=== PATIENT | female | born 1945 | race Caucasian/White ===

== ENCOUNTER → 2017-01-17 | Outpatient (CLI) | payer MEDICARE, OTHER ==
[~2017-01-17] MED LIST: ALLO100T PO; AMLO5TAB2 PO; ASPI81TA85 PO; CALC0.5C PO; CENTTAB PO; CHELATED IRON PO; GLUC2.5T9 PO; LASI20TA PO; PANT40TA2 PO; SIMV10TA2 PO; SITA50TAB PO; VITA500047 PO
[2017-01-17 13:37] LABS: ALBUMIN 3.4 GM/DL (3.2-5.2); ALBUMIN/GLOBULIN RATIO 1.03 (1.00-1.93); BILIRUBIN,TOTAL 0.4 MG/DL (0.2-1.0); CALCIUM LEVEL 8.6 MG/DL (8.8-10.2); CREATININE FOR GFR 2.11 MG/DL (0.55-1.02); GLOMERULAR FILTRATION RATE 24.6 (>39); POTASSIUM SERUM 4.2 MEQ/L (3.5-5.1); TOTAL PROTEIN 6.7 GM/DL (6.4-8.2)
[2017-01-17 13:43] LABS: BASO % 0.3 % (0.0-1.0); EOS # 0.2 K/mm3 (0.0-0.50); EOS % 3.1 % (0.0-3.0); LARGE UNSTAINED CELL # 0.1 K/mm3 (0.0-0.4); LYMPH # 1.5 K/mm3 (1.5-4.5); LYMPH % 19.5 % (24.0-44.0); MEAN CORPUSCULAR HEMOGLOBIN 31.9 pg (27.0-33.0); MEAN CORPUSCULAR HGB CONC 32.2 g/dl (32.0-36.5); MEAN CORPUSCULAR VOLUME 98.8 fl (80.0-96.0); MONO # 0.4 K/mm3 (0.0-0.8); MONO % 4.9 % (0.0-5.0); NEUTROPHILS # 5.4 K/mm3 (1.8-7.7); NEUTROPHILS % 71.3 % (36.0-66.0); PLATELET COUNT, AUTOMATED 319 k/mm3 (150-450); RED CELL DISTRIBUTION WIDTH 15.1 % (11.5-14.5); WHITE BLOOD COUNT 7.5 K/mm3 (4.0-10.0)
== END ==
LOC: M SMT 09:12
PROVIDERS: ATTEND Family Medicine
DX: N18.9 Chronic kidney disease, unspecified (principal); E11.9 Type 2 diabetes mellitus without complications; E53.8 Deficiency of other specified B group vitamins

== ENCOUNTER → 2017-03-15 | Day surgery (SDC) | payer MEDICARE, OTHER ==
[~2017-03-15] VITALS: Ht 160 cm; Wt 85.3 kg
[~2017-03-15] MED LIST changes: +ACETAMINOPHEN 325 MG TAB PO PRN; +ACETYLCHOLINE OPHTH SOLN 1% 2ML (MIOCHOL-E) As Ordered ONE; +ASPI1TAB PO; +AcetaZOLAMIDE 500 MG ER CAP PO ONE; +BALANCED SALT IRRIGATION SOLUTION 500ML BAG (FOR OR EYE MACHINE) As Ordered ONE; +CARV6.25 PO; +CEFUROXIME 1MG/0.1ML INTRACAMERAL INJ As Ordered ONE; +CYCLOPENTOLATE 2% OPHTH SOLN 2ML BTL OS ONE; +D5W/0.2% SODIUM CHLORIDE 250 ML IV ONE; +FURO20TA2 PO; +GLIP-163 PO; +GLIP2.5T6 PO; +HEALON DUET (HEALON 10MG/ML 0.55ML & HEALON ENDOCOAT 30MG/ML 0.85ML) As Ordered ONE; +IRON18TA PO; +IRON18TA2 PO; +KETOROLAC 0.5% OPHTH SOLN OS ONE; +LIDOCAINE 1% SDV 5 ML VIAL As Ordered ONE; +LIDOCAINE 4% INJ 5 ML AMP OU ONE; +LISI2.5T3 PO; +MIDAZOLAM INJ 2 MG/2 ML VIAL (J2250) As Ordered ONE; +MYRB50TA PO; +OFLOXACIN 0.3 % (OCUFLOX) OPTH SOL 5ML OS ONE; +PHENYLEPHRINE 2.5% OPHTH SOL 2ML OS ONE; +POTA10TA17 PO; +POVIDONE-IODINE 5% OPHTH PREP SOL 30ML As Ordered ONE; +PROPARACAINE 0.5% OPHTH SOL 15ML OS PRN; +ROCA0.5C PO; +TRIMETHOBENZAMIDE 300 MG CAP PO PRN; +TROPICAMIDE 1% OPHTH SOLN 2ML OS ONE; +VITA1CAP40 PO; +fentaNYL 100 MCG/2 ML INJECTION (J3010) As Ordered ONE
[2017-03-15 10:58] VITALS: BP 138/72
--- NOTE | 2017-03-16 11:40 | RO ---
DATE OF PROCEDURE: 03/15/2017 PREPROCEDURE DIAGNOSIS: Age related nuclear cataract left eye. POSTPROCEDURE DIAGNOSIS: Age related nuclear cataract left eye. PROCEDURE: Phacoemulsification and posterior chamber intraocular lens implantation left eye. The lens used was AU00T0, 17.5 diopter. SURGEON: Elmira Pena MD HYDROELECTRIC COMPONENT MACHINIST: ANESTHESIA: Topical with sedation. DESCRIPTION OF PROCEDURE: The patient was prepped and draped in the usual fashion. A lid speculum was placed between the lids. The eye was fixated. A stab incision was made to the anterior chamber, and 1% non-preserved lidocaine was instilled. Then, viscoelastic was instilled. The eye was re-fixated. A 2.75 mm sapphire keratome was used to make a clear corneal temporal limbal incision. Capsulorrhexis was begun with a 30-gauge bent needle and then carried out in a circular fashion with capsulorrhexis forceps. The lens was hydrodissected, and then the phacoemulsification unit was used to make a groove in the nucleus in two meridians. The nucleus was then cracked into four quadrants. Each quadrant was removed with the phacoemulsification unit. Any remaining cortex was removed with the irrigation and aspiration (I and A) unit. Capsular bag was refilled with viscoelastic. A posterior chamber intraocular lens was placed in the capsular bag without difficulty. Any remaining viscoelastic was removed with the I and A unit. The wound was hydrated, and Miochol and cefuroxime were instilled into the anterior chamber. The patient tolerated the procedure well and went to the recovery room in stable condition.
== END | disposition home or self-care (01) ==
LOC: M SDC 08:59
PROVIDERS: ATTEND Ophthalmology
DX: H25.12 Age-related nuclear cataract, left eye (principal); E11.22 Type 2 diabetes mellitus with diabetic chronic kidney disease; I12.9 Hypertensive chronic kidney disease with stage 1 through stage 4 chronic kidney disease, or unspecified chronic kidney disease; E78.5 Hyperlipidemia, unspecified; E50.9 Vitamin A deficiency, unspecified; I42.0 Dilated cardiomyopathy; I49.9 Cardiac arrhythmia, unspecified; M10.9 Gout, unspecified; E03.9 Hypothyroidism, unspecified; K57.32 Diverticulitis of large intestine without perforation or abscess without bleeding; R23.3 Spontaneous ecchymoses; M12.9 Arthropathy, unspecified; M54.5 Low back pain; R06.02 Shortness of breath; N18.4 Chronic kidney disease, stage 4 (severe); N39.3 Stress incontinence (female) (male); Z79.899 Other long term (current) drug therapy; Z79.82 Long term (current) use of aspirin; Z98.84 Bariatric surgery status; Z96.652 Presence of left artificial knee joint; Z96.661 Presence of right artificial ankle joint; Z98.51 Tubal ligation status; Z87.440 Personal history of urinary (tract) infections
CPT/HCPCS: 66984; J2250; J3010; V2632

== ENCOUNTER → 2017-05-19 | Outpatient (CLI) | payer MEDICARE, OTHER ==
[~2017-05-19] MED LIST changes: -ACETAMINOPHEN 325 MG TAB PO PRN; -ACETYLCHOLINE OPHTH SOLN 1% 2ML (MIOCHOL-E) As Ordered ONE; -AcetaZOLAMIDE 500 MG ER CAP PO ONE; -BALANCED SALT IRRIGATION SOLUTION 500ML BAG (FOR OR EYE MACHINE) As Ordered ONE; -CEFUROXIME 1MG/0.1ML INTRACAMERAL INJ As Ordered ONE; -CYCLOPENTOLATE 2% OPHTH SOLN 2ML BTL OS ONE; -D5W/0.2% SODIUM CHLORIDE 250 ML IV ONE; -HEALON DUET (HEALON 10MG/ML 0.55ML & HEALON ENDOCOAT 30MG/ML 0.85ML) As Ordered ONE; -KETOROLAC 0.5% OPHTH SOLN OS ONE; -LIDOCAINE 1% SDV 5 ML VIAL As Ordered ONE; -LIDOCAINE 4% INJ 5 ML AMP OU ONE; -MIDAZOLAM INJ 2 MG/2 ML VIAL (J2250) As Ordered ONE; -OFLOXACIN 0.3 % (OCUFLOX) OPTH SOL 5ML OS ONE; -PHENYLEPHRINE 2.5% OPHTH SOL 2ML OS ONE; -POVIDONE-IODINE 5% OPHTH PREP SOL 30ML As Ordered ONE; -PROPARACAINE 0.5% OPHTH SOL 15ML OS PRN; -TRIMETHOBENZAMIDE 300 MG CAP PO PRN; -TROPICAMIDE 1% OPHTH SOLN 2ML OS ONE; -fentaNYL 100 MCG/2 ML INJECTION (J3010) As Ordered ONE
[2017-05-19 13:47] LABS: MEAN CORPUSCULAR HEMOGLOBIN 31.3 pg (27.0-33.0); MEAN CORPUSCULAR HGB CONC 31.3 g/dl (32.0-36.5); MEAN CORPUSCULAR VOLUME 100.2 fl (80.0-96.0); RED CELL DISTRIBUTION WIDTH 15.5 % (11.5-14.5); WHITE BLOOD COUNT 7.4 K/mm3 (4.0-10.0)
[2017-05-19 13:58] LABS: CALCIUM LEVEL 8.2 MG/DL (8.8-10.2); CREATININE FOR GFR 2.47 MG/DL (0.55-1.02); GLOMERULAR FILTRATION RATE 20.4 (>39); POTASSIUM SERUM 4.6 MEQ/L (3.5-5.1)
[2017-05-19 13:59] LABS: ALBUMIN 3.4 GM/DL (3.2-5.2); ALBUMIN/GLOBULIN RATIO 1.1 (1.00-1.93); BILIRUBIN,TOTAL 0.5 MG/DL (0.2-1.0); TOTAL PROTEIN 6.5 GM/DL (6.4-8.2)
== END ==
LOC: M SMT 09:14
PROVIDERS: ATTEND Family Medicine
DX: E53.8 Deficiency of other specified B group vitamins (principal); E55.9 Vitamin D deficiency, unspecified; E11.9 Type 2 diabetes mellitus without complications; N39.0 Urinary tract infection, site not specified

== ENCOUNTER → 2017-05-25 | Outpatient (CLI) | payer MEDICARE, OTHER ==
--- NOTE | 2017-06-02 09:17 | DEXA ---
AP SPINE L1 - L4 1.027 -1.4 0.4 LT FEMUR TOTAL Replaced. RT FEMUR TOTAL 0.783 -1.8 -0.2 TOTAL BODY TOTAL OTHER DUAL FEMUR FRAX* ASSESSMENT Risk factors: Not performed. 10 year probability of fracture Major osteoporotic fracture % Hip fracture % COMMENTS: There is low bone density of the spine. There is low bone density of the right hip. The decreased density of the spine does represent a significant change. The decreased density of the right hip does represent a significant change. The density of the spine has decreased 6.0% since the initial exam on 12/2002. The spine density has decreased 7.5% since the most recent exam on 05/2013. The density of the right hip has decreased 20.9% since the initial exam on 2002. The density of the right hip has decreased 11.0% since the most recent exam on . FOLLOW-UP: Recommendation for the next bone density exam: 2 years. JOSSY
== END ==
LOC: M WHC 08:05
PROVIDERS: ATTEND Family Medicine
DX: Z12.31 Encounter for screening mammogram for malignant neoplasm of breast (principal); M85.9 Disorder of bone density and structure, unspecified; Z78.0 Asymptomatic menopausal state
CPT/HCPCS: 77080; G0202

== ENCOUNTER → 2017-05-25 | Outpatient (CLI) | payer MEDICARE, OTHER ==
--- NOTE | 2017-05-25 10:48 | REPMRS ---
Patient History The patient states she had a clinical breast exam in Patient is postmenopausal. Family history of breast cancer in daughter under age 50. Digital Woman Screen Mammo: May 25, 2017 - Exam #: [id number] Bilateral CC and MLO view(s) were taken. Technologist: Taylor Hung, Technologist Prior study comparison: May 23, 2016, digital woman screen mammo performed at [facility] to [facility]. May 19, 2015, digital woman screen mammo performed at [facility] to [facility]. FINDINGS: There are scattered fibroglandular densities. There has been no change in the appearance of the mammogram from the prior studies. There is a mild amount of residual fibroglandular tissue which is fairly symmetric. There is no interval development of dominant mass, architectural distortion, or clustered microcalcification suggestive of malignancy. ASSESSMENT: BI-RADS/ACR category 1 mammogram. Negative. Recommendation Routine screening mammogram in 1 year (for women over age 40). This mammogram was interpreted with the aid of an FDA-approved computer-aided dectection system. Electronically Signed By: Asa Cartwright MD 05/25/17 [id number]
== END ==
LOC: M WHC 08:01
PROVIDERS: ATTEND Nurse Practitioner Family
DX: Z12.31 Encounter for screening mammogram for malignant neoplasm of breast (principal); Z78.0 Asymptomatic menopausal state

== ENCOUNTER → 2017-06-01 | Outpatient (REF) | payer MEDICARE, OTHER ==
[2017-06-02 14:02] LABS: PERCENT SATURATION 22.3 % (13.2-45.0)
== END ==
LOC: M LAB REF 13:34
PROVIDERS: ATTEND Internal Medicine Nephrology
DX: N39.0 Urinary tract infection, site not specified (principal); N18.4 Chronic kidney disease, stage 4 (severe); D63.1 Anemia in chronic kidney disease; E11.22 Type 2 diabetes mellitus with diabetic chronic kidney disease

== ENCOUNTER → 2018-01-11 | Outpatient (CLI) | payer MEDICARE, OTHER ==
[2018-01-11 11:00] LABS: BASO % 0.3 % (0.0-1.0); EOS # 0.1 10^3/uL (0.0-0.50); EOS % 0.8 % (0.0-3.0); HEMATOCRIT 29.6 % (36.0-47.0); HEMOGLOBIN 9.7 g/dl (12.0-15.5); IMMATURE GRANULOCYTE % 0.7 % (0-3.0); LYMPH # 1.4 10^3/uL (1.5-4.5); LYMPH % 15.7 % (24.0-44.0); MEAN CORPUSCULAR HEMOGLOBIN 32.2 pg (27.0-33.0); MEAN CORPUSCULAR HGB CONC 32.8 g/dl (32.0-36.5); MEAN CORPUSCULAR VOLUME 98.3 fl (80.0-96.0); MONO # 0.6 10^3/uL (0.0-0.8); MONO % 6.6 % (0.0-5.0); NEUTROPHILS # 6.8 10^3/uL (1.8-7.7); NEUTROPHILS % 75.9 % (36.0-66.0); PLATELET COUNT, AUTOMATED 315 10^3/uL (150-450); RED BLOOD COUNT 3.01 10^6/uL (4.00-5.40); RED CELL DISTRIBUTION WIDTH 14.7 % (11.5-14.5)
[2018-01-11 11:04] LABS: APPEARANCE, URINE TURBID (CLEAR); BACTERIA, URINE AUTO 2+ (NEGATIVE); BILIRUBIN, URINE AUTO NEGATIVE (NEGATIVE); BLOOD, URINE BLOOD NEGATIVE (NEGATIVE); COLOR, URINE YELLOW (YELLOW); GLUCOSE, URINE (UA) AUTO NEGATIVE (NEGATIVE); KETONE, URINE AUTO NEGATIVE (NEGATIVE); LEUKOCYTE ESTERASE, URINE AUTO 3+ (NEGATIVE); NITRITE, URINE AUTO NEGATIVE (NEGATIVE); PROTEIN, URINE AUTO 1+ mg/dL (NEGATIVE); RBC, URINE AUTO 14 /HPF (0-3); SPECIFIC GRAVITY URINE AUTO 1.014 (1.002-1.035); SQUAMOUS EPITHELIAL CELL UR AU 8 /HPF (0-6); UROBILINOGEN, URINE AUTO 0.2 mg/dL (0.0-2.0); WBC, URINE AUTO TNTC /HPF (0-3)
[2018-01-11 11:27] LABS: ALBUMIN 3.4 GM/DL (3.2-5.2); ALKALINE PHOSPHATASE 101 U/L (45-117); ALT/SGPT 30 U/L (12-78); ANION GAP 9 MEQ/L (8-16); AST/SGOT 28 U/L (7-37); BILIRUBIN,TOTAL 0.4 MG/DL (0.2-1.0); BLOOD UREA NITROGEN 51 MG/DL (7-18); CALCIUM LEVEL 8.6 MG/DL (8.8-10.2); CARBON DIOXIDE LEVEL 21 MEQ/L (21-32); CHLORIDE LEVEL 116 MEQ/L (98-107); CREATININE FOR GFR 3.08 MG/DL (0.55-1.30); GLOMERULAR FILTRATION RATE 15.8 (>39); GLUCOSE, FASTING 118 MG/DL (70-100); POTASSIUM SERUM 4.2 MEQ/L (3.5-5.1); SODIUM LEVEL 146 MEQ/L (136-145); TOTAL PROTEIN 6.8 GM/DL (6.4-8.2)
[2018-01-11 11:33] LABS: TOTAL 25(OH) VITAMIN D 41.8 NG/ML (30.0-100.0); VITAMIN B12 LEVEL 1118 PG/ML (247-911)
[2018-01-11 12:17] LABS: ESTIMATED AVERAGE GLUCOSE 171 MG/DL (60-110); HEMOGLOBIN A1c 7.6 %
== END ==
LOC: M SMT 09:00
DX: E55.9 Vitamin D deficiency, unspecified (principal); E11.9 Type 2 diabetes mellitus without complications; E53.8 Deficiency of other specified B group vitamins
CPT/HCPCS: 82607

== ENCOUNTER → 2018-02-12 | Day surgery (SDC) | payer MEDICARE, OTHER ==
[~2018-02-12] MED LIST changes: -ALLO100T PO; -AMLO5TAB2 PO; -ASPI1TAB PO; -ASPI81TA85 PO; -CALC0.5C PO; -CARV6.25 PO; -CENTTAB PO; -CHELATED IRON PO; -FURO20TA2 PO; -GLIP-163 PO; -GLIP2.5T6 PO; -GLUC2.5T9 PO; -IRON18TA PO; -IRON18TA2 PO; -LASI20TA PO; -LISI2.5T3 PO; -MYRB50TA PO; -PANT40TA2 PO; -POTA10TA17 PO; +PROPOFOL 200 MG/20 ML VIAL As Ordered; -ROCA0.5C PO; -SIMV10TA2 PO; -SITA50TAB PO; -VITA1CAP40 PO; -VITA500047 PO
[2018-02-12] MEDS: NS 1,000 ML IV (09:00)
== END | disposition home or self-care (01) ==
LOC: M OPP 08:48
DX: Z12.11 Encounter for screening for malignant neoplasm of colon (principal); K64.0 First degree hemorrhoids; K57.30 Diverticulosis of large intestine without perforation or abscess without bleeding; Z86.010 Personal history of colon polyps; I10 Essential (primary) hypertension; E11.9 Type 2 diabetes mellitus without complications; E78.00 Pure hypercholesterolemia, unspecified; E03.9 Hypothyroidism, unspecified; M12.9 Arthropathy, unspecified; M54.5 Low back pain; N18.4 Chronic kidney disease, stage 4 (severe); R23.3 Spontaneous ecchymoses; N39.3 Stress incontinence (female) (male); M81.0 Age-related osteoporosis without current pathological fracture; Z79.82 Long term (current) use of aspirin; Z79.84 Long term (current) use of oral hypoglycemic drugs; Z79.891 Long term (current) use of opiate analgesic; Z79.899 Other long term (current) drug therapy; Z98.84 Bariatric surgery status; Z86.718 Personal history of other venous thrombosis and embolism; Z96.641 Presence of right artificial hip joint; Z96.651 Presence of right artificial knee joint; Z83.3 Family history of diabetes mellitus
CPT/HCPCS: G0105

== ENCOUNTER → 2018-02-23 | Outpatient (REF) | payer MEDICARE, OTHER ==
[2018-02-23 14:20] LABS: CHOLESTEROL LEVEL 152 MG/DL (<200); FERRITIN 35 NG/ML (8-252); HDL CHOLESTEROL 50 MG/DL (>40); IRON (FE) 77 UG/DL (50-170); LDL CHOLESTEROL 78.8 MG/DL (<100); NON-HDL-C 102 MG/DL; PERCENT SATURATION 22.3 % (13.2-45.0); TOTAL IRON BINDING CAPACITY 345 UG/DL (250-450); TRIGLYCERIDES LEVEL 116 MG/DL (<150)
[2018-02-23 14:25] LABS: HEPATITIS B SURFACE ANTIBODY NEGATIVE (POSITIVE)
[2018-02-23 14:35] LABS: HEPATITIS B SURFACE ANTIGEN NEGATIVE (NEGATIVE)
[2018-02-23 15:02] LABS: HEPATITIS C VIRUS ABY INDEX 0.1 INDEX (<0.8)
[2018-02-23 15:03] LABS: HEPATITIS B CORE ANTIBODY IGM NEGATIVE (NEGATIVE)
== END ==
LOC: M LAB REF 13:04
DX: R30.0 Dysuria (principal); N18.4 Chronic kidney disease, stage 4 (severe); D63.1 Anemia in chronic kidney disease; E11.22 Type 2 diabetes mellitus with diabetic chronic kidney disease
CPT/HCPCS: 83550

== ENCOUNTER → 2018-03-13 | Outpatient (CLI) | payer MEDICARE, OTHER | LOC: M RAD 07:14 | DX: Z01.818 Encounter for other preprocedural examination (principal); N18.6 End stage renal disease | CPT/HCPCS: G0365 ==

== ENCOUNTER 2018-03-15 10:52 | Day surgery (SDC) | payer MEDICARE, OTHER ==
[~2018-03-15 10:52] MED LIST changes: +GLYCOPYRROLATE INJ 0.2 MG/ML 2 ML VIAL As Ordered; +KETOROLAC 60 MG/2 ML VIAL (J1885) As Ordered; +LIDOCAINE 2% INJ 100 MG/5 ML SDV (FOR ANES.) As Ordered; +MIDAZOLAM INJ 2 MG/2 ML VIAL (J2250) As Ordered; +NEOSTIGMINE 10 MG/10 ML VIAL (J2710) As Ordered; +ONDANSETRON 4MG/2ML VIAL (J2405) As Ordered; +ROCURONIUM BROMIDE 50 MG/5 ML VIAL As Ordered; +dexameTHASONE 4 MG/ML 1ML VIAL (J1100) As Ordered; +fentaNYL 100 MCG/2 ML INJECTION (J3010) As Ordered
[2018-03-15 11:58] LABS: BEDSIDE GLUCOSE 108 MG/DL (83-110)
[2018-03-15] MEDS: D5W/0.2% SODIUM CHLORIDE 1,000 ML IV (12:07)
[2018-03-15 12:41] LABS: POTASSIUM SERUM 4.7 MEQ/L (3.5-5.1)
[2018-03-15] MEDS: ceFAZolin 2 GM/D5W 50 ML IV BAG (J0690 PER 500MG) As Ordered (13:18)
[2018-03-15] MEDS: HEPARIN SOD (PORCINE) 5000 UNITS/ML VIAL As Ordered (13:24)
[2018-03-15] MEDS: BUPIVACAINE HCL 0.5% 30 ML VIAL As Ordered (13:25)
[2018-03-15] MEDS: LIDOCAINE 1% SDV INJ 30 ML VIAL As Ordered (13:25)
[2018-03-15] MEDS ORDERED: GLYCOPYRROLATE INJ 0.2 MG/ML 2 ML VIAL As Ordered (13:49)
[2018-03-15] MEDS ORDERED: ROCURONIUM BROMIDE 50 MG/5 ML VIAL As Ordered (14:02)
[2018-03-15] MEDS: ISOVUE-300 61% 50ML VIAL (Q9967) As Ordered (14:48)
[2018-03-15] MEDS: THROMBIN SOLN 20,000 UNITS KIT As Ordered (14:49)
[2018-03-15] MEDS ORDERED: SUGAMMADEX SODIUM 500 MG/5 ML VIAL (BRIDION) As Ordered (15:00)
[2018-03-15] MEDS ORDERED: LR 1,000 ML IV (15:30)
[2018-03-15] MEDS ORDERED: D5W/0.2% SODIUM CHLORIDE 1,000 ML IV (15:30)
[2018-03-15] MEDS ORDERED: PERCOCET 5MG/325MG TAB PO (15:30)
[2018-03-15] MEDS ORDERED: ONDANSETRON 4MG/2ML VIAL (J2405) IV (15:30)
[2018-03-15] MEDS ORDERED: fentaNYL 100 MCG/2 ML INJECTION (J3010) IV (15:30)
== END 2018-03-15 17:43 | disposition home or self-care (01) ==
LOC: M SDC 10:52
DX: N18.9 Chronic kidney disease, unspecified (principal); E11.9 Type 2 diabetes mellitus without complications; I12.9 Hypertensive chronic kidney disease with stage 1 through stage 4 chronic kidney disease, or unspecified chronic kidney disease; E03.9 Hypothyroidism, unspecified; M10.9 Gout, unspecified; E78.5 Hyperlipidemia, unspecified; Z79.82 Long term (current) use of aspirin; Z79.899 Other long term (current) drug therapy
CPT/HCPCS: 36821

== ENCOUNTER → 2018-03-26 | Outpatient (REF) | payer MEDICARE, OTHER | LOC: M LAB REF 17:12 | DX: N39.0 Urinary tract infection, site not specified (principal) | CPT/HCPCS: 87086 ==

== ENCOUNTER → 2018-04-24 | Outpatient (REF) | payer MEDICARE, OTHER | LOC: M LAB REF 17:42 | DX: N39.0 Urinary tract infection, site not specified (principal) | CPT/HCPCS: 87186 ==

== ENCOUNTER → 2018-05-08 | Outpatient (CLI) | payer MEDICARE, OTHER | LOC: M LAB 16:44 | DX: Z01.818 Encounter for other preprocedural examination (principal) | CPT/HCPCS: 36415 ==

== ENCOUNTER → 2018-05-14 | Outpatient (CLI) | payer MEDICARE, OTHER | LOC: M WHC 07:53 | DX: Z12.31 Encounter for screening mammogram for malignant neoplasm of breast (principal) | CPT/HCPCS: 77067 ==

== ENCOUNTER → 2018-05-25 | Outpatient (CLI) | payer MEDICARE, OTHER ==
[2018-05-28 12:56] LABS: HEPATITIS B CORE ANTIBODY IGM NEGATIVE (NEGATIVE); HEPATITIS B SURFACE ANTIBODY NEGATIVE (POSITIVE); HEPATITIS B SURFACE ANTIGEN NEGATIVE (NEGATIVE); HEPATITIS C VIRUS ABY INDEX 0.1 INDEX (<0.8)
== END ==
LOC: M SMT 13:16
DX: N18.4 Chronic kidney disease, stage 4 (severe) (principal)
CPT/HCPCS: 86706

== ENCOUNTER → 2019-01-14 | Outpatient (REF) | payer MEDICARE, OTHER ==
[~2019-01-14] MED LIST changes: +ALLO100T PO; +AMLO5TAB2 PO; +ASPI81TA26 PO; +ASPI81TA85 PO; +CALC0.5C14 PO; +CARV6.25 PO; +CENTTAB PO; +CHELATED IRON PO; +FURO20TA2 PO; +GLIP-163 PO; +GLIP2.5T6 PO; +GLUC2.5T9 PO; -GLYCOPYRROLATE INJ 0.2 MG/ML 2 ML VIAL As Ordered; +IRON18TA PO; +IRON18TA2 PO; -KETOROLAC 60 MG/2 ML VIAL (J1885) As Ordered; +LASI20TA PO; -LIDOCAINE 2% INJ 100 MG/5 ML SDV (FOR ANES.) As Ordered; +LISI-1046 PO; -MIDAZOLAM INJ 2 MG/2 ML VIAL (J2250) As Ordered; +MYRB50TA PO; -NEOSTIGMINE 10 MG/10 ML VIAL (J2710) As Ordered; -ONDANSETRON 4MG/2ML VIAL (J2405) As Ordered; +PANT40TA2 PO; +POTA10TA17 PO; -PROPOFOL 200 MG/20 ML VIAL As Ordered; +ROCA0.5C PO; -ROCURONIUM BROMIDE 50 MG/5 ML VIAL As Ordered; +SIMV10TA2 PO; +SITA50TAB PO; +SODI325T9 PO; +VITA500047 PO; +VITA50005 PO; -dexameTHASONE 4 MG/ML 1ML VIAL (J1100) As Ordered; -fentaNYL 100 MCG/2 ML INJECTION (J3010) As Ordered
== END ==
LOC: M LAB REF 17:22
PROVIDERS: ATTEND Internal Medicine Nephrology
DX: N39.0 Urinary tract infection, site not specified (principal); D63.1 Anemia in chronic kidney disease; T85.71XA Infection and inflammatory reaction due to peritoneal dialysis catheter, initial encounter

== ENCOUNTER → 2019-01-14 | Outpatient (CLI) | payer MEDICARE, OTHER ==
[2019-01-14 14:21] LABS: BASO % 0.4 % (0.0-1.0); EOS # 0.2 10^3/uL (0.0-0.50); HEMATOCRIT 30.8 % (36.0-47.0); HEMOGLOBIN 9.9 g/dl (12.0-15.5); LYMPH # 1.5 10^3/uL (1.5-4.5); LYMPH % 18.7 % (24.0-44.0); MEAN CORPUSCULAR HGB CONC 32.1 g/dl (32.0-36.5); MEAN CORPUSCULAR VOLUME 99.7 fl (80.0-96.0); MONO # 0.6 10^3/uL (0.0-0.8); NEUTROPHILS # 5.9 10^3/uL (1.8-7.7); NEUTROPHILS % 71.4 % (36.0-66.0); PLATELET COUNT, AUTOMATED 285 10^3/uL (150-450); RED BLOOD COUNT 3.09 10^6/uL (4.00-5.40); WHITE BLOOD COUNT 8.2 10^3/uL (4.0-10.0)
[2019-01-14 14:36] LABS: ALBUMIN 3.8 GM/DL (3.2-5.2); BILIRUBIN,TOTAL 0.5 MG/DL (0.2-1.0); CALCIUM LEVEL 8.8 MG/DL (8.8-10.2); CHOLESTEROL RISK RATIO 2.677 (<5); CREATININE FOR GFR 2.65 MG/DL (0.55-1.30); GLOMERULAR FILTRATION RATE 18.8 (>39); POTASSIUM SERUM 4.6 MEQ/L (3.5-5.1); TOTAL 25(OH) VITAMIN D 55.1 NG/ML (30.0-100.0); TOTAL PROTEIN 6.8 GM/DL (6.4-8.2)
== END ==
LOC: M SMT 09:48
PROVIDERS: ATTEND Family Medicine
DX: E55.9 Vitamin D deficiency, unspecified (principal); E11.9 Type 2 diabetes mellitus without complications; E53.8 Deficiency of other specified B group vitamins; N39.0 Urinary tract infection, site not specified; T85.71XA Infection and inflammatory reaction due to peritoneal dialysis catheter, initial encounter

== ENCOUNTER → 2019-03-19 | Outpatient (REF) | payer MEDICARE, OTHER | LOC: M LAB REF 12:49 | PROVIDERS: ATTEND Internal Medicine Nephrology | DX: N39.0 Urinary tract infection, site not specified (principal) ==

== ENCOUNTER → 2019-04-08 | Outpatient (REF) | payer MEDICARE, OTHER ==
[~2019-04-08] MED LIST changes: +CENT1TAB9 PO
[2019-04-08 18:46] LABS: APPEARANCE, URINE TURBID (CLEAR); BACTERIA, URINE AUTO 3+ (NEGATIVE); BILIRUBIN, URINE AUTO NEGATIVE (NEGATIVE); BLOOD, URINE BLOOD 1+ (NEGATIVE); COLOR, URINE AMBER (YELLOW); GLUCOSE, URINE (UA) AUTO NEGATIVE (NEGATIVE); KETONE, URINE AUTO NEGATIVE (NEGATIVE); LEUKOCYTE ESTERASE, URINE AUTO 3+ (NEGATIVE); MUCUS, URINE SMALL (NEGATIVE); NITRITE, URINE AUTO NEGATIVE (NEGATIVE); PROTEIN, URINE AUTO 1+ mg/dL (NEGATIVE); RBC, URINE AUTO 31 /HPF (0-3); SPECIFIC GRAVITY URINE AUTO 1.015 (1.002-1.035); SQUAMOUS EPITHELIAL CELL UR AU 1 /HPF (0-6); UROBILINOGEN, URINE AUTO 0.2 mg/dL (0.0-2.0); WBC, URINE AUTO TNTC /HPF (0-3)
== END ==
LOC: M LAB REF 16:53
PROVIDERS: ATTEND Family Medicine
DX: N39.0 Urinary tract infection, site not specified (principal)

== ENCOUNTER 2019-04-18 05:52 | Day surgery (SDC) | payer MEDICARE, OTHER ==
[~2019-04-18] VITALS: Ht 160 cm; Wt 74.8 kg
[2019-04-18] MEDS ORDERED: NS 1,000 ML IV ONE (06:00)
[2019-04-18] MEDS ORDERED: LIDOCAINE 1% SDV INJ 30 ML VIAL As Ordered ONE (06:47)
[2019-04-18] MEDS ORDERED: BUPIVACAINE HCL 0.5% 30 ML VIAL As Ordered ONE (06:48)
[2019-04-18] MEDS ORDERED: LIDOCAINE 2% INJ 100 MG/5 ML SDV (FOR ANES.) As Ordered ONE (07:07)
[2019-04-18] MEDS ORDERED: PROPOFOL 200 MG/20 ML VIAL As Ordered ONE (07:07)
[2019-04-18] MEDS ORDERED: ONDANSETRON 4MG/2ML VIAL (J2405) As Ordered ONE (07:09)
[2019-04-18] MEDS ORDERED: fentaNYL 100 MCG/2 ML INJECTION (J3010) As Ordered ONE (07:10)
[2019-04-18] MEDS ORDERED: MIDAZOLAM INJ 2 MG/2 ML VIAL (J2250) As Ordered ONE (07:10)
[2019-04-18] MEDS ORDERED: BACITRACIN OINT 30GM As Ordered ONE (07:31)
[2019-04-18 08:00] VITALS: BP 134/60
--- NOTE | 2019-04-18 11:35 | ROOPDOC ---
[facility] Report Of Operation Report of Operation DATE OF PROCEDURE: 04/18/2019 PREOPERATIVE DIAGNOSES: Chronic renal insufficiency nearing end-stage renal disease not yet requiring renal replacement therapy. POSTOPERATIVE DIAGNOSES: And it renal insufficiency nearing end-stage renal disease not yet requiring renal replacement therapy. PROCEDURE: Peritoneal dialysis catheter removal SURGEON: Dr. Satya Adams MD STATION JAILER: None INDICATION: Patient is a 74-year-old female who underwent placement of a peritoneal dialysis catheter laparoscopically and creation of a left brachiocephalic arteriovenous fistula in preparation for renal replacement therapy via peritoneal dialysis. The patient's renal function stabilized and the patient never required renal replacement therapy and has never used the peritoneal dialysis catheter. Patient will undergo removal of the peritoneal dialysis catheter. The procedure was described and explained to the patient in detail including drawing of pictures demonstrating the procedure and the anatomy. Risks, benefits and alternative treatment options were discussed with the patient. Benefits included but were not limited to removal of the catheter. Alternative treatment options included but were not limited to no intervention. Risks included but were not limited to infection, bleeding, intra- abdominal organ injury necessitating exploratory laparotomy with repair, possible need for further open surgical intervention, possible need for transfusion of blood products, nerve injury, pain, bruising, scarring, allergic and/or adverse reaction to the prepping and draping materials, allergic and/or adverse reaction to the anesthetic medications, anesthetic complication, cerebrovascular accident, myocardial infarction, pulmonary embolus, deep venous thrombosis, loss of limb, loss of life, poor results and poor outcome. Risks of not performing the procedure included but were not limited to infection, mechanical complication and or . All the patient's questions were answered. Patient signed consent in the preoperative holding area and verbally acknowledges giving consent to proceed with the removal of the peroneal dialysis catheter acknowledging understanding of the risks benefits and alternative treatment options. There were no guarantees or promises made to the patient regarding the outcome or results of the procedure. ANESTHESIA: Mac IVF: 200 mL's ESTIMATED BLOOD LOSS: 5 mL. HEPARIN:None PROTIMINE:None COMPLICATIONS: None. DRAINS:None SPECIMENS:None IMPLANTS: None DESCRIPTION OF PROCEDURE: Patient was taken to operating room, placed supine on the operating room table and the patient was prepped and draped in a standard surgical fashion. The surgical timeout was performed by myself and all members in the room confirming the correct patient, laterality and procedure. The peritoneal dialysis catheter was then removed with dissection of the subcutaneous cuff and peritoneal cuff performed sharply through the entry site in the abdominal wall. The catheter was ruled out without difficulty and was fully intact upon removal. Bacitracin and 2 x 2 dressings were applied to the exit site wound. All instrument, sponge and needle counts were correct at the end of the case. There were no complications. Dr. Adams was present for and directed the entire case. Patient was transferred to the recovery room awake, alert, extubated and in stable condition. The procedure and the results were described and explained to the patient in detail in the postprocedure recovery area with all of her questions being answered. CONCLUSION: Patient underwent successful removal of her peritoneal dialysis catheter. PLAN: Patient will follow-up in the office postoperatively. Amandeep Adams MD Apr 18, 2019 11:35
== END 2019-04-18 08:12 | disposition home or self-care (01) ==
LOC: M SDC 05:52
PROVIDERS: ATTEND Surgery Vascular Surgery
DX: Z49.02 Encounter for fitting and adjustment of peritoneal dialysis catheter (principal); N18.9 Chronic kidney disease, unspecified; I12.9 Hypertensive chronic kidney disease with stage 1 through stage 4 chronic kidney disease, or unspecified chronic kidney disease; E11.22 Type 2 diabetes mellitus with diabetic chronic kidney disease; I95.1 Orthostatic hypotension; E78.00 Pure hypercholesterolemia, unspecified; D64.9 Anemia, unspecified; R23.3 Spontaneous ecchymoses; M15.0 Primary generalized (osteo)arthritis; M54.5 Low back pain; M81.0 Age-related osteoporosis without current pathological fracture; R06.83 Snoring; Z79.899 Other long term (current) drug therapy; Z79.82 Long term (current) use of aspirin; Z79.84 Long term (current) use of oral hypoglycemic drugs; Z78.0 Asymptomatic menopausal state; Z98.84 Bariatric surgery status; Z96.1 Presence of intraocular lens; Z98.41 Cataract extraction status, right eye; Z98.42 Cataract extraction status, left eye; Z86.718 Personal history of other venous thrombosis and embolism; Z87.440 Personal history of urinary (tract) infections; Z96.642 Presence of left artificial hip joint; Z96.651 Presence of right artificial knee joint; Z98.51 Tubal ligation status

== ENCOUNTER → 2019-06-03 | Outpatient (REF) | payer MEDICARE, OTHER ==
[~2019-06-03] MED LIST changes: +SIMV10TA21 PO
== END ==
LOC: M LAB REF 17:04
PROVIDERS: ATTEND Internal Medicine Nephrology
DX: N39.0 Urinary tract infection, site not specified (principal)

== ENCOUNTER → 2019-06-04 | Outpatient (CLI) | payer MEDICARE, OTHER ==
[~2019-06-04] MED LIST changes: -SIMV10TA21 PO
--- NOTE | 2019-06-04 11:23 | REPMRS ---
Patient History The patient states she had a clinical breast exam in 06/2019. Patient is postmenopausal. Family history of breast cancer at age 49 in daughter. No Hormone Replacement Therapy 3D TOMOSYNTHESIS WAS PERFORMED. [facility] for breast cancer [facility] 5.9%. Digital Woman Screen Mammo: June 04, 2019 - Exam #: [id number] Bilateral CC and MLO view(s) were taken. Technologist: Mary Lou Ford, Technologist Prior study comparison: May 14, 2018, bilateral digital woman screen mammo performed at [facility] [employer] to [facility]. May 25, 2017, digital woman screen mammo performed at [facility] [employer] to [employer] [facility]. FINDINGS: There are scattered fibroglandular densities. There has been no change in the appearance of the mammogram from the prior studies. There is a mild amount of residual fibroglandular tissue which is fairly symmetric. There is no interval development of dominant mass, architectural distortion, or clustered microcalcification suggestive of malignancy. Assessment: BI-RADS/ACR category 1 mammogram. Negative Mammogram. Recommendation Routine screening mammogram in 1 year (for women over age 40). This mammogram was interpreted with the aid of an FDA-approved computer-aided dectection system. Electronically Signed By: Asa Cartwright MD 06/04/19 [id number]
== END ==
LOC: M WHC 09:54
PROVIDERS: ATTEND Family Medicine
DX: Z12.31 Encounter for screening mammogram for malignant neoplasm of breast (principal); Z78.0 Asymptomatic menopausal state; Z80.3 Family history of malignant neoplasm of breast

== ENCOUNTER → 2020-01-13 | Outpatient (REF) | payer MEDICARE, OTHER ==
[~2020-01-13] MED LIST changes: -LISI-1046 PO; +LISI2.5T2 PO; +SIMV10TA21 PO
== END ==
LOC: M LAB REF 16:41
PROVIDERS: ATTEND Internal Medicine Nephrology
DX: N39.0 Urinary tract infection, site not specified (principal)

== ENCOUNTER → 2020-02-07 | Outpatient (CLI) | payer MEDICARE, OTHER ==
[~2020-02-07] MED LIST changes: +ELIQ5TAB PO; +iron PO
[2020-02-07 10:57] LABS: HEMATOCRIT 25.3 % (36.0-47.0); MEAN CORPUSCULAR HEMOGLOBIN 30.4 pg (27.0-33.0); MEAN CORPUSCULAR HGB CONC 31.6 g/dl (32.0-36.5); MEAN CORPUSCULAR VOLUME 96.2 fl (80.0-96.0); PLATELET COUNT, AUTOMATED 308 10^3/uL (150-450); RED BLOOD COUNT 2.63 10^6/uL (4.00-5.40); WHITE BLOOD COUNT 6.6 10^3/uL (4.0-10.0)
[2020-02-07 11:40] LABS: BILIRUBIN,TOTAL 0.4 MG/DL (0.2-1.0); CALCIUM LEVEL 8.3 MG/DL (8.8-10.2); CREATININE FOR GFR 3.24 MG/DL (0.55-1.30); GLOMERULAR FILTRATION RATE 14.9 (>39); POTASSIUM SERUM 4.3 MEQ/L (3.5-5.1); TOTAL PROTEIN 6.7 GM/DL (6.4-8.2)
== END ==
LOC: M LAB 10:33
PROVIDERS: ATTEND Family Medicine
DX: Z01.818 Encounter for other preprocedural examination (principal)

== ENCOUNTER → 2020-02-17 | Outpatient (REF) | payer MEDICARE, OTHER ==
[2020-02-17 19:11] LABS: PERCENT SATURATION 21.8 % (13.2-45.0)
== END ==
LOC: M LAB REF 16:51
PROVIDERS: ATTEND Internal Medicine Nephrology
DX: D50.9 Iron deficiency anemia, unspecified (principal); N39.0 Urinary tract infection, site not specified

== ENCOUNTER 2020-02-19 13:20 | Outpatient (CLI) | payer MEDICARE, OTHER ==
[~2020-02-19] VITALS: Ht 160 cm; Wt 70.9 kg
[2020-02-19 13:30] VITALS: BP 120/58
[2020-02-19] MEDS ORDERED: NS 1,000 ML IV SCH (13:30)
[2020-02-19] MEDS ORDERED: methylPREDNISolone 125MG 2ML VIAL IV PRN (13:30)
[2020-02-19] MEDS ORDERED: FERRIC CARBOXYMALTOSE INJ 750 MG in NS 250 ML IV ONE (13:30)
[2020-02-19] MEDS ORDERED: diphenhydrAMINE 50MG/ML VIAL (J1200) IV PRN (13:30)
[2020-02-19] MEDS ORDERED: EPINEPHrine INJ 1 MG/ML 1ML AMP IM PRN (13:30)
[2020-02-19] MEDS ORDERED: ALBUTEROL SULFATE 2.5 MG/0.5 ML INH NEB SOLN INH PRN (13:30)
[2020-02-19 14:30] VITALS: BP 126/62
[2020-02-19 16:35] VITALS: BP 122/56
== END 2020-02-19 16:35 | disposition home or self-care (01) ==
LOC: M INFU 13:20
PROVIDERS: ATTEND Internal Medicine Nephrology
DX: D50.9 Iron deficiency anemia, unspecified (principal); N18.5 Chronic kidney disease, stage 5; Z79.82 Long term (current) use of aspirin; Z79.84 Long term (current) use of oral hypoglycemic drugs; Z79.899 Other long term (current) drug therapy
CPT/HCPCS: 96365; 96366; J1439

== ENCOUNTER → 2020-02-22 | Outpatient (CLI) | payer MEDICARE, OTHER | LOC: M LABSMTC 09:36 | PROVIDERS: ATTEND Anesthesiology | DX: Z11.59 Encounter for screening for other viral diseases (principal) | CPT/HCPCS: C9803; U0003 ==

== ENCOUNTER 2020-02-25 11:04 | Day surgery (SDC) | payer MEDICARE, OTHER ==
[~2020-02-25] VITALS: Ht 160 cm; Wt 70.3 kg
[~2020-02-25 11:04] MED LIST changes: +LIDOCAINE 1% MDV 20ML VIAL SQ PRN; +LR 1,000 ML IV ONE; +fentaNYL 100 MCG/2 ML INJECTION (J3010) As Ordered ONE
[2020-02-25] MEDS ORDERED: BUPIVACAINE HCL 0.5% 30 ML VIAL As Ordered ONE (11:10)
[2020-02-25] MEDS ORDERED: D5W/0.45% SODIUM CHLORIDE 1,000 ML IV SCH (12:15)
[2020-02-25] MEDS ORDERED: BUPIVACAINE LIPOSOME/PF 1.3% 20ML VIAL (13.3MG/ML)(EXPAREL)(C9290 PER1MG) As Ordered ONE (12:40)
[2020-02-25] MEDS ORDERED: SUGAMMADEX SODIUM 500 MG/5 ML VIAL (BRIDION) As Ordered ONE (13:35)
[2020-02-25] MEDS ORDERED: ROCURONIUM BROMIDE 50 MG/5 ML VIAL As Ordered ONE (13:35)
[2020-02-25] MEDS ORDERED: ONDANSETRON 4MG/2ML VIAL As Ordered ONE (13:35)
[2020-02-25] MEDS ORDERED: propofoL 200 MG/20 ML VIAL As Ordered ONE (13:35)
[2020-02-25] MEDS ORDERED: METOCLOPRAMIDE INJ 10MG/2ML VIAL (J2765 PER 1) As Ordered ONE (13:54)
[2020-02-25] MEDS ORDERED: METOCLOPRAMIDE INJ 10MG/2ML VIAL (J2765 PER 1) IV PRN (14:00)
[2020-02-25] MEDS ORDERED: ONDANSETRON 4MG/2ML VIAL IV PRN (14:00)
[2020-02-25] MEDS ORDERED: fentaNYL 100 MCG/2 ML INJECTION (J3010) IV PRN (14:00)
[2020-02-25] MEDS ORDERED: LR 1,000 ML IV SCH (14:00)
[2020-02-25] MEDS ORDERED: PERCOCET 5MG/325MG TAB PO PRN (14:00)
[2020-02-25] MEDS ORDERED: MIDAZOLAM INJ 2MG/2ML VIAL (J2250 PER 1MG) As Ordered ONE (14:07)
[2020-02-25] MEDS ORDERED: ACETAMINOPHEN TAB 650MG DOSE (2X325MG) PO PRN (14:30)
[2020-02-25] MEDS ORDERED: NORCO, ANEXSIA 5/325MG TABLET (HYDROcodone/ACETAMINOPHEN) PO PRN (14:30)
[2020-02-25 16:20] VITALS: BP 117/57
--- NOTE | 2020-02-28 16:39 | RO ---
DATE OF PROCEDURE: 02/25/2020 PREOPERATIVE DIAGNOSIS: Hemorrhoids. POSTOPERATIVE DIAGNOSIS: Hemorrhoids, grade III. PROCEDURE PERFORMED: Hemorrhoidectomy. SURGEON: Dr. Schafer ANESTHESIA: General. INDICATIONS FOR THE PROCEDURE: Patient is a 75-year-old woman who has complained of some protruding hemorrhoids with some mild leakage of stool. Examination confirms some prolapsing hemorrhoids and she is now for a hemorrhoidectomy. OPERATIVE PROCEDURE: The patient was brought to the operating room on the stretcher. She was placed under general endotracheal anesthesia. She was then rolled into a prone position on the padded operating table. She was tilted into a prone jackknife position with her pressure points padded. The buttocks were gently spread with tape and the perineum was then prepped and draped in a sterile fashion. Initial examination showed two small external skin tags that were not addressed. A Hinton anal speculum was used to examine the rectum and anus. She was noted to have prolapsing hemorrhoidal tissue in a right posterior position, left lateral position, and a smaller grouping at the anterior midline. Initially, the right posterior bundle was addressed. An apical suture of #3-0 Vicryl was placed. Then, using a needle tip cautery the hemorrhoidal tissues were excised. The mucosa was scored in an hourglass fashion narrowing at the dentate line. The underlying vascular tissues were elevated off of the internal sphincter and the tissue was excised and set aside as a specimen. Hemostasis was ensured with the cautery. The mucosa was then closed with a running locking suture of #3-0 Vicryl. This was carried out to the dentate line. The remainder of the wound was closed with interrupted simple sutures of #3-0 chromic. The left lateral hemorrhoidal bundle was excised in similar fashion and also closed with #3-0 Vicryl and #3-0 chromic. The smaller anterior hemorrhoidal tissues were then also excised extending only out to the dentate line. This was closed with chromic sutures. Final inspection revealed no evidence of bleeding. 20 mL of Exparel was mixed with 10 mL of 0.5% Marcaine and this was infiltrated around the perianal area and along the area of the suture line. Final inspection again showed no bleeding. The anus was covered with Adaptic and a bulky gauze dressing. This was held in place with tape. The patient was returned to a supine position on the stretcher and was awakened and extubated and moved to the recovery room in stable condition. JOSSY
== END 2020-02-25 16:30 | disposition home or self-care (01) ==
LOC: M SDC 11:04
PROVIDERS: ATTEND Surgery
DX: K64.8 Other hemorrhoids (principal); I10 Essential (primary) hypertension; E78.00 Pure hypercholesterolemia, unspecified; K57.92 Diverticulitis of intestine, part unspecified, without perforation or abscess without bleeding; E11.9 Type 2 diabetes mellitus without complications; M81.0 Age-related osteoporosis without current pathological fracture; Z79.01 Long term (current) use of anticoagulants; Z79.82 Long term (current) use of aspirin; Z79.899 Other long term (current) drug therapy; Z86.718 Personal history of other venous thrombosis and embolism; Z98.84 Bariatric surgery status
CPT/HCPCS: 46260; 88304; C9290; J2250; J2405; J2765; J3010

== ENCOUNTER 2020-02-26 13:17 | Outpatient (CLI) | payer MEDICARE, OTHER ==
[~2020-02-26] VITALS: Ht 160 cm; Wt 70.9 kg
[~2020-02-26 13:17] MED LIST changes: -LIDOCAINE 1% MDV 20ML VIAL SQ PRN; -LR 1,000 ML IV ONE; -fentaNYL 100 MCG/2 ML INJECTION (J3010) As Ordered ONE
[2020-02-26] MEDS ORDERED: diphenhydrAMINE 50MG/ML VIAL (J1200) IV PRN (13:45)
[2020-02-26] MEDS ORDERED: methylPREDNISolone INJ 125 MG/2 ML VIAL (J2930) IV PRN (13:45)
[2020-02-26] MEDS ORDERED: EPINEPHrine INJ 1 MG/ML 1ML AMP IM PRN (13:45)
[2020-02-26] MEDS ORDERED: FERRIC CARBOXYMALTOSE INJ 750 MG in NS 250 ML IV ONE (13:45)
[2020-02-26] MEDS ORDERED: ALBUTEROL SULFATE 2.5 MG/0.5 ML INH NEB SOLN INH PRN (13:45)
[2020-02-26] MEDS ORDERED: NS 1,000 ML IV SCH (13:45)
[2020-02-26 13:52] VITALS: BP 127/58
[2020-02-26 16:10] VITALS: BP 128/58
[2020-02-26 16:44] VITALS: BP 122/60
== END 2020-02-26 16:40 | disposition home or self-care (01) ==
LOC: M INFU 13:17
PROVIDERS: ATTEND Internal Medicine Nephrology
DX: D50.9 Iron deficiency anemia, unspecified (principal); N18.9 Chronic kidney disease, unspecified
CPT/HCPCS: 96374; J1439

== ENCOUNTER 2020-03-13 13:57 | Emergency (ER) | payer MEDICARE, OTHER ==
[~2020-03-13] VITALS: Ht 160 cm; Wt 69.2 kg
[2020-03-13 14:55] LABS: HEMATOCRIT 30.3 % (36.0-47.0); HEMOGLOBIN 9.6 g/dl (12.0-15.5); MEAN CORPUSCULAR HGB CONC 31.7 g/dl (32.0-36.5); PLATELET COUNT, AUTOMATED 455 10^3/uL (150-450); WHITE BLOOD COUNT 16.3 10^3/uL (4.0-10.0)
[2020-03-13] MEDS ORDERED: NS 1,000 ML IV ONE (15:00)
[2020-03-13] MEDS ORDERED: ONDANSETRON 4MG/2ML VIAL IV ONE (15:00)
[2020-03-13] MEDS ORDERED: MORPHINE 2 MG/ML 1ML VIAL (J2270) IV ONE ×2 (15:00→16:15)
[2020-03-13 15:06] LABS: INR 1.16; PROTHROMBIN TIME 14.5 SECONDS (11.8-14.0)
[2020-03-13 15:07] LABS: PARTIAL THROMBOPLASTIN TIME 25.4 SECONDS (25.0-38.4)
[2020-03-13 15:20] LABS: LYMPHOCYTES 4 % (16-44); NEUTROPHILS 86 % (28-66); PLATELET ESTIMATE NORMAL (NORMAL)
[2020-03-13 15:21] LABS: ANISOCYTOSIS 1+
[2020-03-13 15:22] LABS: HYPOCHROMASIA 1+
[2020-03-13 15:23] LABS: ALBUMIN 2.3 GM/DL (3.2-5.2); BILIRUBIN,DIRECT 0.3 MG/DL (0.0-0.2); BILIRUBIN,TOTAL 0.5 MG/DL (0.2-1.0); TOTAL PROTEIN 6.6 GM/DL (6.4-8.2)
[2020-03-13 15:26] LABS: CK-MB VALUE MASS < 1.0 NG/ML (<3.6); CPK CREATINE PHOSPHOKINASE 30 U/L (26-192); MB/CK RELATIVE INDEX 3.33 (< OR =4); TROPONIN I < 0.02 NG/ML (< 0.10)
[2020-03-13] MEDS ORDERED: JANU25TA PO (15:38)
[2020-03-13] MEDS ORDERED: IRON18TA PO ×2 (15:38→15:39)
[2020-03-13] MEDS ORDERED: NITR1CAP27 PO (15:39)
[2020-03-13] MEDS ORDERED: PIPERACILLIN/TAZOBACTAM SOD 3.375 GM in D5W MINI-BAG PLUS 50 ML IV ONE (15:45)
[2020-03-13 18:58] VITALS: BP 128/62
--- NOTE | 2020-03-13 21:39 | ECGEPIP ---
[facility] - ED Test Date: 2020-03-13 Pat Name: ARIK SORIANO Department: Room: - Gender: Female Oncology Account Specialist: ITZEL : 1945 Requested By: DEMETRIUS LANDEROS PA-C Order Number: [id number] Reading MD: Rianna Russo Measurements Intervals [place] Rate: 82 P: 39 IN: 158 QRS: -33 QRSD: 120 T: 60 QT: 386 QTc: 452 Interpretive Statements SINUS RHYTHM MARKED LEFT AXIS DEVIATION MINIMAL VOLTAGE CRITERIA FOR LVH, CONSIDER NORMAL VARIANT POSSIBLE ANTERIOR MYOCARDIAL INFARCTION, OF INDETERMINATE AGE NO PRIOR Electronically Signed on 03-13-2020 21:38:28 EDT by Rianna Russo
--- NOTE | 2020-03-13 22:30 | REPVR ---
PROCEDURE INFORMATION: Exam: CT Chest Without Contrast Exam date and time: 03/13/2020 3:03 PM Age: 75 years old Clinical indication: Chest pain; Additional info: Severe abd pain into chest and shoulders TECHNIQUE: Imaging protocol: Computed tomography of the chest without contrast. Radiation optimization: All CT scans at this facility use at least one of these dose optimization techniques: automated exposure control; mA and/or kV adjustment per patient size (includes targeted exams where dose is matched to clinical indication); or iterative reconstruction. COMPARISON: No relevant prior studies available. FINDINGS: Lungs: Pulmonary vascular/interstitial pattern does not suggest active pulmonary edema. No suspicious lung mass or air space process. No central endobronchial lesion. Pleural space: Small dependent bilateral pleural effusions with atelectasis. No pneumothorax. Heart: Small physiologic volume of pericardial fluid. No cardiac enlargement. Aorta: Atherosclerotic changes seen in the aorta without dilatation. Great vessels off aortic arch: Atherosclerotic calcifications in the coronary vessels. Lymph nodes: No enlarged mediastinal lymph nodes. Bones/joints: Bony structures are unremarkable except for thoracic degenerative disc disease. Other findings: Slightly limited evaluation without IV contrast. IMPRESSION: Small bilateral dependent pleural effusions, right larger than left with minimal adjacent atelectasis. No underlying active pulmonary edema or pneumonia. Electronically signed by: Héctor Gomez On 03/13/2020 22:29:49 PM
--- NOTE | 2020-03-13 22:42 | REPVR ---
PROCEDURE INFORMATION: Exam: CT Abdomen And Pelvis Without Contrast Exam date and time: 03/13/2020 3:03 PM Age: 75 years old Clinical indication: Abdominal pain; Additional info: Severe abd pain into chest and shoulders TECHNIQUE: Imaging protocol: Computed tomography of the abdomen and pelvis without contrast. Radiation optimization: All CT scans at this facility use at least one of these dose optimization techniques: automated exposure control; mA and/or kV adjustment per patient size (includes targeted exams where dose is matched to clinical indication); or iterative reconstruction. COMPARISON: No relevant prior studies available. FINDINGS: Mediastinal space: Hiatal hernia. Liver: Noncontrast liver shows no obvious lesion. Gallbladder and bile ducts: Gallbladder is present and shows no evidence of gallstone. Pancreas: Noncontrast pancreas shows no obvious mass or adjacent fluid. Spleen: Noncontrast spleen shows no obvious focal deformity. Adrenals: Adrenal glands are normal in appearance. Kidneys and ureters: Left kidney demonstrates no stone or obstruction. Right kidney demonstrates nonobstructive calculi and a left ureter stent extending into the bladder from the renal pelvis, and traversing a mid ureter stone. Mild residual right pelvic caliceal dilatation. Possible hematoma around the lower pole right kidney laterally measuring 4 x 3 cm. Stomach and bowel: No evidence of small bowel obstruction. Diverticular changes are present within the colon without inflammation. Intraperitoneal space: Small volume of abdominal and pelvic free fluid. No pneumoperitoneum. Vasculature: Atherosclerotic change present in the aorta, without aneurysm. Bladder: Bladder is not well visualized. Bones/joints: Left hip arthroplasty. Soft tissues: Umbilical hernia and supraumbilical ventral hernia contains fat. Other findings: Limited evaluation without enteric or IV contrast. IMPRESSION: 1. Mild residual right hydronephrosis with a double-J ureter stent present around a mid ureter stone, and with nonobstructive right renal calculi identified. Possible hematoma around the lateral aspect of the lower right kidney measuring 4 x 4 cm. 2. Hiatal hernia measuring 4 cm. 3. Small volume of abdominal and pelvic free fluid. 4. Diverticulosis of the colon without active inflammation. Electronically signed by: Héctor Gomez On 03/13/2020 22:37:52 PM
--- NOTE | 2020-03-15 11:03 | ER ---
DATE OF CONSULTATION: 03/13/2020 REASON FOR CONSULTATION: Abdominal pain. HISTORY: Patient is a 75-year-old woman that I had seen recently for hemorrhoid surgery. She has multiple medical problems (dictation cut off) a history of diabetes mellitus. She has hypertension and coronary artery disease. She has a history of deep vein thrombosis on two occasions, most recently in September 2019. She has chronic kidney disease, stage IV. She has previously had a left upper arm arteriovenous (AV) fistula created and had a continuous ambulatory peritoneal dialysis (CAPD) catheter placed several years ago, but it was removed when she did not progress to the need for peritoneal dialysis. She has also undergone a Kamla-en-Y gastric bypass back in 1999. She presented to the emergency on the afternoon of 03/13/2020 complaining of abdominal pain. She reported that she has been having some pain particularly in the right lower quadrant for some time, though she was fairly vague on the timing. It sounded like this could be days to a week or more. She reported that over the last day or two she has had increasing discomfort in the right lower quadrant extending up into the upper abdomen and around to her back somewhat. She reports that this even goes all the way up into the back of her neck. She underwent evaluation with some laboratory studies and then had a CT scan without contrast of the chest, abdomen, and pelvis. The patient denied any fevers or chills. She reported a sense of significant weakness and an inability to get out of bed today. She had something to eat yesterday and did have some nausea. Her labs showed that her white count (dictation cut off) with 86% neutrophils and 10% bands. Her lactic acid was elevated to 4.5. Her glucose was elevated to 219 and her blood urea nitrogen (BUN) and creatinine were approximately at her baseline of [address] scan, a small amount of free fluid in the abdomen and pelvis. There was no evidence of free air. Question of possible ischemic bowel was raised by the emergency physician and I was asked to see the patient. ALLERGIES: The patient has NO KNOWN DRUG ALLERGIES. MEDICATIONS: Include: - allopurinol - Eliquis - aspirin - calcitriol - carvedilol - vitamin D - furosemide - iron - mirabegron - multivitamins - nitrofurantoin - potassium - simvastatin - sitagliptin - sodium bicarbonate MEDICAL HISTORY: Is significant for diabetes mellitus. She has dilated cardiomyopathy with more recent studies showing an ejection fraction estimated at 48% in May of 2018. She has hypertension and hyperlipidemia. She has chronic kidney disease, stage IV. She has a history of prior morbid obesity treated by bariatric surgery in year 1999. She has had left lower extremity deep venous thrombosis (DVT) with a recurrence in September of 2019. SURGICAL HISTORY: Is significant for a left upper arm arteriovenous fistula for potential dialysis. She had a CAPD catheter placed several years ago, but this was subsequently removed. She underwent hemorrhoidectomy about 2 weeks ago. She had bariatric surgery with a gastric bypass in 1999. She has had a left hip arthroplasty. She has had a left knee arthroscopy. She has had tonsillectomy and a tubal ligation. FAMILY HISTORY: Is noncontributory. SOCIAL HISTORY: The patient is a nonsmoker and drinks alcohol infrequently. REVIEW OF SYSTEMS: Again showed no definite fevers or chills. She primarily complains of feeling weak and tired and having persistent pain in the right flank. She reports having had pain on the right side of her abdomen, primarily in the right lower quadrant for quite some time but this has worsened and become more sharp in the last 1-2 days. She has had no diarrhea or constipation and denies any rectal bleeding. She has had no emesis. She denies any chest pain or palpitations, shortness of breath or wheezing. PHYSICAL EXAMINATION: Reveals a pleasant older woman lying quietly on the hospital stretcher. She is alert and responsive. She remembers me well from our recent surgery encounter. Most recent vital signs show a pulse in the 70s with a blood pressure 121/58 and a normal room air oxygen saturation. She has been afebrile in the emergency department. The patient appears slightly pale but she is alert and oriented. Skin is warm and dry. Sclerae are anicteric. Mucous membranes appear moist. The neck is supple. Heart exam shows a regular rate and rhythm. The lungs are clear. The abdomen is flat. She does have some bowel sounds present in all four quadrants. There is some tenderness on palpation of the right side of the abdomen in the right flank. There may be some guarding in the mid to lower right abdomen. There is no sign of hernia. There is no redness of the skin. Extremities are without any significant peripheral edema. LABORATORY STUDIES: Show white count of 16,000 with a hemoglobin of 10, hematocrit 30, and a platelet count of 455,000. Differential count shows 86% neutrophils, 10 bands, and 4 lymphocytes. Coags show a PT of 14.5, INR of 1.16, and PTT of 25.4. Her chemistry profile includes a point of care chemistry profile showing a glucose of 219, sodium 133, potassium 4.4, chloride 106, CO2 of 14, BUN of 50, creatinine 3.2. Remaining chemistries show normal liver function tests with the exception alkaline phosphatase slightly elevated at 161. Total protein is 6.6 with an albumin of 2.3. Her troponin is less than 0.02. Her lactic acid is 4.5, which is high. She had a chest CT scan and a CT scan of the abdomen and pelvis. I do not have official reads of either of these at this time. On my review of the CT scan, I think there is a suggestion of some minor pleural fluid posteriorly on the right. There is no evidence of pulmonary infiltrate. The CT scan of the abdomen and pelvis shows what appears to be a small amount of fluid around the spleen. She has a stent in the right ureter extending from a mildly dilated renal pelvis to the bladder. She has a little bit of fluid in the right infrahepatic area. At the lateral and inferior aspect of the kidney, she has some either fluid or soft tissue infiltration of the surrounding perirenal fat. This is a noncontrast study. It seems to me this could represent blood or abscess and perhaps less likely tumor. She does have some vascular calcifications noted. There are some staple lines seen consistent with her prior gastric bypass. I do not see changes that I would think would be more indicative of a ischemic event of the bowel. She also has a ventral hernia identified slightly above the umbilicus. IMPRESSION: The patient is complaining of primarily right-sided abdominal and flank discomfort though she says it radiates up into her neck now. She is describing now a sharper stabbing pain but reports that she has had some longstanding pain of really indeterminate length, but at least days to perhaps weeks. She has a stent in the right ureter and when I questioned her about this she has no idea how long it has been in place and assumes it must have been placed when she was in [place] at some time but cannot recall. The CT scan shows some lobulated density lateral and inferior to the right kidney, which could represent hemorrhage or infection. I do not think she has ischemic bowel given the presence of bowel sounds, the lack of diarrhea or other gastrointestinal (GI) symptoms and the absence of findings of concern on the CT scan. I think it is possible that her stent is occluded and that this might account for some of her discomfort, but it is unclear to me and she cannot say how long the stent has been in place. Her white count is elevated, so an infection in the right kidney is certainly a possibility. PLAN: I spoke with Dr. Cartwright and expressed to her my concerns. I advised her that I do not think she has ischemic gut and that I am concerned about the findings on the CT related to the right kidney. I also pointed out that the patient was unaware that she had a stent in the right kidney and perhaps a malfunctioning stent or infection in the kidney could be part of her picture. Dr. Cartwright advised me that there is no urology coverage available in [facility] today. With that in mind, we agreed that transfer elsewhere would be appropriate. This would also provide availability of interventional radiology services if necessary for further evaluation of her vascular tree potentially to evaluate the possibility of ischemic bowel.
== END 2020-03-13 19:08 | disposition short-term general hospital (02) ==
LOC: M ED 13:57
DX: N13.39 Other hydronephrosis (principal); K55.059 Acute (reversible) ischemia of intestine, part and extent unspecified; R10.31 Right lower quadrant pain; D72.829 Elevated white blood cell count, unspecified; I13.10 Hypertensive heart and chronic kidney disease without heart failure, with stage 1 through stage 4 chronic kidney disease, or unspecified chronic kidney disease; I25.10 Atherosclerotic heart disease of native coronary artery without angina pectoris; E11.9 Type 2 diabetes mellitus without complications; Z86.718 Personal history of other venous thrombosis and embolism; N18.4 Chronic kidney disease, stage 4 (severe); I42.9 Cardiomyopathy, unspecified; D50.9 Iron deficiency anemia, unspecified; M10.9 Gout, unspecified; E03.9 Hypothyroidism, unspecified; Z98.890 Other specified postprocedural states; Z98.84 Bariatric surgery status; Z79.899 Other long term (current) drug therapy; Z79.82 Long term (current) use of aspirin; Z79.01 Long term (current) use of anticoagulants; Z96.0 Presence of urogenital implants
CPT/HCPCS: 36415; 71250; 74176; 80047; 80076; 82550; 82553; 83605; 83690; 84484; 85025; 85610; 85730; 86850; 86900; 86901; 93005; 93041; 94760; 96365; 96366; 96375; 96376; 99285; J2270; J2405; J2543

== ENCOUNTER → 2020-04-24 | Outpatient (REF) | payer MEDICARE, OTHER ==
[~2020-04-24] MED LIST changes: +IRON325T2 PO; +JANU25TA PO; +KEFL250C11 PO; +NITR1CAP27 PO; +NITR50CA34 PO; +TRAM50TA2 PO
[2020-04-24 20:04] LABS: PERCENT SATURATION 11.3 % (13.2-45.0)
== END ==
LOC: M LAB REF 13:00
PROVIDERS: ATTEND Internal Medicine Nephrology
DX: D50.9 Iron deficiency anemia, unspecified (principal); N39.0 Urinary tract infection, site not specified

== ENCOUNTER → 2020-04-26 | Outpatient (CLI) | payer MEDICARE, OTHER | LOC: M LAB 10:27 | PROVIDERS: ATTEND Internal Medicine Nephrology | DX: D64.9 Anemia, unspecified (principal) ==

== ENCOUNTER 2020-04-27 09:40 | Emergency (ER) | payer MEDICARE, OTHER ==
[~2020-04-27] VITALS: Ht 160 cm; Wt 70.3 kg
[~2020-04-27 09:40] MED LIST changes: -IRON325T2 PO; -KEFL250C11 PO; -NITR50CA34 PO; -TRAM50TA2 PO
[2020-04-27 12:23] LABS: BASO % 0.2 % (0.0-1.0); EOS % 0.1 % (0.0-3.0); LYMPH # 0.8 10^3/uL (1.5-5.0); LYMPH % 7.3 % (24.0-44.0); MEAN CORPUSCULAR HEMOGLOBIN 33.5 pg (27.0-33.0); MEAN CORPUSCULAR VOLUME 104.8 fl (80.0-96.0); MONO # 0.4 10^3/uL (0.0-0.8); MONO % 4.2 % (0.0-5.0); NEUTROPHILS % 87.5 % (36.0-66.0); PLATELET COUNT, AUTOMATED 326 10^3/uL (150-450); RED BLOOD COUNT 1.88 10^6/uL (4.00-5.40); WHITE BLOOD COUNT 10.3 10^3/uL (4.0-10.0)
[2020-04-27 12:33] LABS: HEMATOCRIT 19.7 % (36.0-47.0); HEMOGLOBIN 6.3 g/dl (12.0-15.5)
[2020-04-27 16:46] VITALS: BP 128/78
== END 2020-04-27 16:48 | disposition home or self-care (01) ==
LOC: M ED 09:40
DX: N18.4 Chronic kidney disease, stage 4 (severe) (principal); D63.1 Anemia in chronic kidney disease; I12.9 Hypertensive chronic kidney disease with stage 1 through stage 4 chronic kidney disease, or unspecified chronic kidney disease; Z87.442 Personal history of urinary calculi; Z79.899 Other long term (current) drug therapy; Z79.82 Long term (current) use of aspirin; Z79.01 Long term (current) use of anticoagulants

== ENCOUNTER 2020-04-28 11:21 | Outpatient (CLI) | payer MEDICARE, OTHER ==
[~2020-04-28] VITALS: Ht 162.6 cm; Wt 70.0 kg
[~2020-04-28 11:21] MED LIST changes: -IRON325T2 PO; -KEFL250C11 PO; -NITR50CA34 PO; -TRAM50TA2 PO
[2020-04-28 12:02] VITALS: BP 111/53
[2020-04-28 12:30] VITALS: BP 134/58
[2020-04-28 13:30] VITALS: BP 140/65
[2020-04-28 14:10] VITALS: BP 118/57
[2020-04-28 15:10] VITALS: BP 137/61
[2020-04-28 15:34] VITALS: BP 132/60
== END 2020-04-28 16:00 | disposition home or self-care (01) ==
LOC: M INFU 11:21
PROVIDERS: ATTEND Internal Medicine Nephrology
DX: D64.9 Anemia, unspecified (principal)
CPT/HCPCS: 36430; P9016

== ENCOUNTER → 2020-04-28 | Outpatient (REF) | payer MEDICARE, OTHER ==
[~2020-04-28] MED LIST changes: +IRON325T2 PO; +KEFL250C11 PO; +NITR50CA34 PO; +TRAM50TA2 PO
[2020-04-28 16:17] LABS: APPEARANCE, URINE CLOUDY (CLEAR); BACTERIA, URINE AUTO 1+ (NEGATIVE); BILIRUBIN, URINE AUTO NEGATIVE (NEGATIVE); BLOOD, URINE BLOOD 2+ (NEGATIVE); COLOR, URINE YELLOW (YELLOW); GLUCOSE, URINE (UA) AUTO NEGATIVE (NEGATIVE); KETONE, URINE AUTO NEGATIVE (NEGATIVE); LEUKOCYTE ESTERASE, URINE AUTO 3+ (NEGATIVE); MUCUS, URINE SMALL (NEGATIVE); NITRITE, URINE AUTO NEGATIVE (NEGATIVE); PROTEIN, URINE AUTO NEGATIVE (NEGATIVE); RBC, URINE AUTO 27 /HPF (0-3); SQUAMOUS EPITHELIAL CELL UR AU 0 /HPF (0-6); UROBILINOGEN, URINE AUTO 0.2 mg/dL (0.0-2.0); WBC, URINE AUTO TNTC /HPF (0-3)
== END ==
LOC: M LAB REF 15:01
PROVIDERS: ATTEND Emergency Medicine
DX: R50.9 Fever, unspecified (principal)

== ENCOUNTER 2020-05-05 14:22 | Inpatient (IN) | payer MEDICARE, OTHER ==
[~2020-05-05] VITALS: Ht 160 cm; Wt 74.8 kg
[2020-05-05] MEDS ORDERED: NITR50CA34 PO (15:43)
[2020-05-05] MEDS ORDERED: IRON325T2 PO ×2 (15:43)
--- NOTE | 2020-05-05 16:37 | REPVR ---
PROCEDURE INFORMATION: Exam: CT Abdomen And Pelvis Without Contrast Exam date and time: 05/05/2020 3:59 PM Age: 75 years old Clinical indication: Abdominal pain; Flank; Right; Additional info: R flank pain, h/o kidney stones TECHNIQUE: Imaging protocol: Computed tomography of the abdomen and pelvis without contrast. Radiation optimization: All CT scans at this facility use at least one of these dose optimization techniques: automated exposure control; mA and/or kV adjustment per patient size (includes targeted exams where dose is matched to clinical indication); or iterative reconstruction. COMPARISON: CT ABD PELVIS W/O CONTRAST 03/13/2020 2:58 PM FINDINGS: Detailed evaluation of the abdominal and pelvic viscera is somewhat limited in the absence of intravenous contrast. Lungs: Interstitial prominence, chronic granulomatous disease, and trace dependent airspace disease. 2.0 cm pericardial effusion, which previously measured 1.5 cm. Hiatal hernia. Interval resolution of previously visualized pleural effusions. Liver: Fatty infiltration of the liver. 4.8 cm high attenuation cyst in the inferior aspect of the right hepatic lobe, which was not readily visualized on the prior study. Gallbladder and bile ducts: No cholelithiasis or biliary ductal dilatation. Pancreas: No pancreatic mass or ductal dilatation. Spleen: No splenomegaly. Adrenals: Unremarkable adrenals. Kidneys and ureters: Bilateral renal nodular lesions of varying size and attenuation, including a 9 mm hyperdense nodular lesion in the upper pole of the right kidney and 10 mm cyst in the posterior left kidney. Two nonobstructing 3 mm right renal calculi. Poorly defined complex 6 cm lobulated exophytic cystic mass arising from the inferolateral right kidney, which previously measured 4.0 cm. Mild infiltration of perinephric fat. Stomach and bowel: Status post bypass surgery with small bowel dilatation at the anastomotic site. Prominent stool and diverticula. Appendix: No acute appendicitis. Intraperitoneal space: No significant free fluid. Vasculature: Extensive vascular calcification. Normal caliber of the abdominal aorta. Lymph nodes: Subcentimeter lymph nodes. Bladder: Unremarkable bladder. Reproductive: Enlargement of the postmenopausal uterus with peripheral calcifications. Bones/joints: Evaluation of the inferior pelvis is limited by beam hardening artifact in association with left hip arthroplasty. Osteopenia. Schmorl's nodes and degenerative change Soft tissues: Subcutaneous edema. Fat containing ventral wall hernia. Subcentimeter nodular densities in the subcutaneous fat of the anterior abdominal wall. Calcification at the gluteal muscle attachment sites. Other findings: . IMPRESSION: 1. Poorly defined complex 6 cm lobulated exophytic cystic mass arising from the inferolateral right kidney, which previously measured 4.0 cm. 2. Two nonobstructing 3 mm right renal calculi. 3. Status post bypass surgery with small bowel dilatation at the anastomotic site. 4. Additional findings as described above. Electronically signed by: Derick Clarke On 05/05/2020 16:37:50 PM
[2020-05-05 17:55] LABS: BASO % 0.2 % (0.0-1.0); EOS % 0.1 % (0.0-3.0); HEMOGLOBIN 7.3 g/dl (12.0-15.5); LYMPH # 1.1 10^3/uL (1.5-5.0); LYMPH % 10.1 % (24.0-44.0); MEAN CORPUSCULAR HEMOGLOBIN 30.9 pg (27.0-33.0); MEAN CORPUSCULAR HGB CONC 31.7 g/dl (32.0-36.5); MEAN CORPUSCULAR VOLUME 97.5 fl (80.0-96.0); MONO # 0.8 10^3/uL (0.0-0.8); MONO % 7.6 % (0.0-5.0); NEUTROPHILS # 9.1 10^3/uL (1.5-8.5); NEUTROPHILS % 81.3 % (36.0-66.0); PLATELET COUNT, AUTOMATED 378 10^3/uL (150-450); RED BLOOD COUNT 2.36 10^6/uL (4.00-5.40); WHITE BLOOD COUNT 11.1 10^3/uL (4.0-10.0)
[2020-05-05 18:02] LABS: ALBUMIN 2.1 GM/DL (3.2-5.2); ALT/SGPT 26 U/L (12-78); BILIRUBIN,DIRECT 0.2 MG/DL (0.0-0.2); BILIRUBIN,TOTAL 0.3 MG/DL (0.2-1.0); BLOOD UREA NITROGEN 71 MG/DL (7-18); CALCIUM LEVEL 7.8 MG/DL (8.8-10.2); CARBON DIOXIDE LEVEL 18 MEQ/L (21-32); CHLORIDE LEVEL 109 MEQ/L (98-107); CK-MB VALUE MASS < 1.0 NG/ML (<3.6); CPK CREATINE PHOSPHOKINASE 52 U/L (26-192); CREATININE FOR GFR 3.01 MG/DL (0.55-1.30); GLOMERULAR FILTRATION RATE 16.1 (>39); GLUCOSE, FASTING 101 MG/DL (70-100); LIPASE 152 U/L (73-393); MB/CK RELATIVE INDEX 1.92 (< OR =4); POTASSIUM SERUM 4.4 MEQ/L (3.5-5.1); SODIUM LEVEL 136 MEQ/L (136-145); TOTAL PROTEIN 5.9 GM/DL (6.4-8.2); TROPONIN I < 0.02 NG/ML (< 0.10)
[2020-05-05] MEDS ORDERED: ACETAMINOPHEN 500 MG TAB PO ONE (20:00)
[2020-05-05] MEDS ORDERED: APIXABAN 5 MG TAB (ELIQUIS) PO SCH (21:00)
[2020-05-05] MEDS ORDERED: FENTANYL REMOVAL DOCUMENTATION MISC TOP SCH (22:15)
[2020-05-05] MEDS ORDERED: fentaNYL 12 MCG/HR PATCH TOP PRN (22:15)
[2020-05-05] MEDS ORDERED: GLUCOSE 4GM CHEW TABLET PO PRN (22:45)
[2020-05-05] MEDS ORDERED: DEXTROSE 50% 50 ML SYRINGE IV PRN (22:45)
[2020-05-05] MEDS ORDERED: GLUCAGON INJ 1MG VIAL SC PRN (22:45)
[2020-05-05 23:30] VITALS: BP 119/60
[2020-05-05] MEDS ORDERED: LevoFLOXacin 750 MG TABLET PO ONE (23:30)
[2020-05-06] VITALS (14 sets, daily range): BP systolic 96–138; BP diastolic 42–65
[2020-05-06] MEDS: FERROUS SULFATE 325MG TAB PO SCH ×4 (00:51→21:30)
[2020-05-06] MEDS ORDERED: LevoFLOXacin 750 MG TABLET PO ONE (01:00)
[2020-05-06] MEDS ORDERED: MEROPENEM INJ 500 MG in IV 1 EA IV SCH (01:00)
[2020-05-06] MEDS: POTASSIUM CHLORIDE 10 MEQ SR TABLET PO SCH ×2 (01:15→21:31)
[2020-05-06] MEDS: SODIUM BICARBONATE 325 MG TAB PO SCH ×3 (01:16→21:31)
[2020-05-06] MEDS: NS 1,000 ML IV SCH (01:16)
[2020-05-06] MEDS: CARVedilol 6.25 MG TAB PO SCH ×3 (01:25→21:31)
[2020-05-06] MEDS ORDERED: NS 500 ML IV STA (01:26)
[2020-05-06 01:43] LABS: FERRITIN 265 NG/ML (8-252); IRON (FE) 15 UG/DL (50-170); PERCENT SATURATION 9.2 % (13.2-45.0); TOTAL IRON BINDING CAPACITY 163 UG/DL (250-450)
[2020-05-06] MEDS ORDERED: MULTIVITAMINS/MINERALS THERAP 1 TAB PO ONE (02:00)
--- NOTE | 2020-05-06 02:08 | HPEPDOC ---
General Date of Admission 05/05/2020 Date of Service: May 05, 2020 Chief Complaint Flank Pain. Source: Patient Exam Limitations: No limitations Timing/Duration: Week(s) Severity: Mild Associated Symptoms: Loss of appetite History of Present Illness Patient is a 75 yo female with PMH of DM, HTN, anemia, CKD, and recurrent UTI presented to [facility] due to right flank and groin pain that has been present for weeks. She reported the pain in right flank and groin region is a 5-6/10 achy, constant pain that is aggravated with pressure and alleviated with tylenol only. She reported decreased appetite but no nausea or vomiting; low grade fever around 100.2F but no chills. She reported that she recently came to [facility] and was transferred to [place] and had her left kidney stent removed as there was infection; she also reported there were left kidney cysts and the cysts were removed in [place] as well. However per [facility] record patient was transferred to [place] on 03/13/2020 for right sided abdominal and flank discomfort and CT abd/pelvis in March 2020 confirmed a ureter stent with a ureter stone and nonobstructive right renal calculi with Possible hematoma in lower right kidney aroun 4 x 4 cm. Home Medications Scheduled Allopurinol (Allopurinol) 100 Mg Tab, 100 MG PO DAILY, (Reported) Aspirin (Aspirin EC) 81 Mg Tab, 81 MG PO DAILY, (Reported) Carvedilol (Carvedilol) 6.25 Mg Tab, 6.25 MG PO BID, (Reported) Cephalexin (Keflex) 250 Mg Capsule, 250 MG PO Q8H Ergocalciferol (Vitamin D2) (Vitamin D2) 50,000 Units Cap, 50,000 UNITS PO QMONTH, (Reported) 1ST OF EACH MONTH Ferrous Sulfate (Iron) 325 Mg Tablet, 325 MG PO DAILY, (Reported) Ferrous Sulfate (Iron) 325 Mg Tablet, 650 MG PO QHS, (Reported) Furosemide (Furosemide) 20 Mg Tab, 20 MG PO DAILY, (Reported) Mirabegron (Myrbetriq) 50 Mg Tab, 50 MG PO DAILY, (Reported) Multivit-Min/Iron/Folic/Lutein (Centrum Silver Women Tablet) 1 Each Tablet, 1 TAB PO DAILY, (Reported) Potassium Chloride (Potassium Chloride) 10 Meq Tab, 10 MEQ PO QHS, (Reported) Simvastatin (Simvastatin) 10 Mg Tab, 10 MG PO DAILY, (Reported) Sitagliptin Phosphate (Januvia) 25 Mg Tablet, 25 MG PO DAILY, (Reported) Sodium Bicarbonate (Sodium Bicarbonate) 325 Mg Tab, 650 MG PO BID, (Reported) Scheduled PRN Tramadol HCl (Tramadol HCl) 50 Mg Tablet, 50 MG PO Q8HP PRN for MODERATE PAIN (PS 5-7) Allergies Coded Allergies: No Known Allergies (Unverified , 02/25/20) Past Medical History Medical History DM type 2 Dilated cardiomyopathy with decreased EF HTN Hyperlipidemia CKD stage 4 prior morbid obesity treated by bariatric surgery in 1999 History of left lower extremity deep DVT with a recurrence in Sep 2019 Parathyroidism History of gout History of leg cramps Arhritis History of Kamla-en-Y Retinal detachment Surgical History left arm AV fistula for potential dialysis Hx of CAPD catheter placed years ago which was subsequently removed Hemorrhoidectomy bariatric surgery with a gastric bypass in 1999 Left hip arthroplasty Left knee arthroscopy Tonsillectomy Tubal ligation. Social History * Smoker: Denies Alcohol: Denies Drugs: denies A-FIB/CHADSVASC A-FIB History Current/History of A-Fib/PAF?: No Review of Systems Constitutional: Reports: Other (elevated temp 100.2F); Denies: Chills Pulmonary: Denies: Dyspnea Cardiovascular: Denies: Chest Pain, Palpitations Gastrointestinal: Reports: Other Symptoms (Low appetite); Denies: Nausea, Vomiting, Diarrhea, Constipation Genitourinary: Reports: Other Symptoms (Right flank and groin pain); Denies: Dysuria, Frequency Physical Examination General Exam: Positive: Alert, Cooperative, Mild Distress Eye Exam: Positive: Conjunctiva & lids normal, Other Eye Symptoms (mildly pale) ENT Exam: Positive: Atraumatic Neck Exam: Positive: Supple Chest Exam: Positive: Normal air movement; Negative: Rales, Rhonchi, Wheezing Heart Exam: Positive: Rate Normal, Regular Rhythm, Normal S1, Normal S2; Negative: Murmurs Abdomen Exam: Positive: Normal bowel sounds, Soft; Negative: Tenderness Skin Exam: Positive: Nl turgor and temperature Neuro Exam: Positive: Normal Speech, Normal Tone Psych Exam: Positive: Mental status NL, Mood NL, Memory Intact Other physical findings Tenderness to palpation in right flank. No ecchymosis noted in right flank region Vital Signs Vital Signs Date Time Temp Pulse Resp B/P (MAP) Pulse Ox O2 Delivery O2 Flow Rate FiO2 05/05/20 15:02 05/05/20 14:23 98.5 70 18 100 Room Air Laboratory Data Labs 24H Laboratory Tests 2 05/05/20 15:45: Anion Gap 9, Glomerular Filtration Rate 16.1L, Calcium Level 7.8L, Total Bilirubin 0.3, Direct Bilirubin 0.2, Aspartate Amino Transf (AST/SGOT) 26, Alanine Aminotransferase (ALT/SGPT) 26, Alkaline Phosphatase 134H, Total C reatine Kinase 52, Creatine Kinase MB < 1.0, Creatine Kinase MB Relative Index 1.92, Troponin I < 0.02, Total Protein 5.9L, Albumin 2.1L, Albumin/Globulin Ratio 0.6L, Lipase 152 05/05/20 15:46: Immature Granulocyte % (Auto) 0.7, Neutrophils (%) (Auto) 81.3H, Lymphocytes (%) (Auto) 10.1L, Monocytes (%) (Auto) 7.6H, Eosinophils (%) (Auto) 0.1, Basophils (%) (Auto) 0.2, Neutrophils # (Auto) 9.1H, Lymphocytes # (Auto) 1.1L, Monocytes # (Auto) 0.8, Eosinophils # (Auto) 0.0, Basophils # (Auto) 0.0, Nucleated Red Blood Cells % (auto) 0.0 05/05/20 17:14: Lactic Acid Level 0.7 05/05/20 18:43: Urine Color YELLOW, Urine Appearance HAZY, Urine pH 5.0, Urine Specific [place] 1.011, Urine Protein NEGATIVE, Urine Glucose (UA) NEGATIVE, Urine Ketones NEGATIVE, Urine Blood 2+H, Urine Nitrite NEGATIVE, Urine Bilirubin NEGATIVE, Urine Urobilinogen 0.2, Urine Leukocyte Esterase 2+H, Urine WBC (Auto) 86H, Urine RBC (Auto) 21H, Urine Hyaline Casts (Auto) 0, Urine Bacteria (Auto) 3+H, Urine Squamous Epithelial Cells 0, Urine Mucus (Auto) SMALL, Urine Sperm (Auto) CBC/BMP Laboratory Tests 05/05/20 15:45 05/05/20 15:46 Microbiology Microbiology 05/05/20 Urine Culture, Received Pending Assessment/Plan 1. Right nephrolithiasis. Two non-obstructing 3 mm right renal calculi shown on CT abd/pelvis. Pt omero be on gentle fluid hydration. Tylenol for pain control for now. Cont home med Sodium bicarb for now 2. UTI/Pyuria. UA pos for 86WBC with 3 bacteria. Patient has leukocytosis. Will start pt on empiric abx with meropenem at this time as BP soft. Gentle hydration d/t CKD stage 4. Tylenol for fever/pain PRN. 3. Right cystic mass. CT abd/pelvis showed "complex 6 cm lobulated exophytic cystic mass arising from the inferolateral right kidney, which previously measured 4.0 cm." Urology consulted. Consider biopsy. Last dose eliquis 05/24/2020 AM. Patient RCRI score 2, class 3 risk, BNP ordered. PT/PTT ordered. Hold eliquis and Aspirin. 4. Anemia, normocytic. Hg 7.3 with repeat 7.5 today. Continue to monitor H&H Q6H. Consider to transfuse PRBC if Hg lower/close to 7. Iron studies in April consistent with anemia of chronic disease, however d/t hx of blood oswald sfusion/iron infusion, this may not reflect patient's own iron panel level. Repeat iron studies; ordered B12 and folic acid level. Cont home ferrous sulfate. Consider starting erythropoietin. She follows nephrology and gets PRBC transfusion/iron infusions periodically. 5. History of gout. Cont home med Allopurinol 6. HTN. Cont home med Carvedilol with holding parameters. Hold home med Lasix as patient is on gentle fluid hydration after 500ml NS bolus. 7. NIDDM. Hold home DM med. Pt is NPO now. FSBS Q6H with insulin SS. Hypoglycemia protocol. 8. History of bypass surgery with small bowel dilatation at the anastomotic site. Centrum multivitamin not available in house, replace with in house multivitamin. Plan / VTE VTE Prophylaxis Ordered?: Yes GME ATTESTATION GME ATTESTATION My faculty preceptor for this patient encounter was physically present during the encounter and was fully available. All aspects of the patient interview, examination, medical decision making process, and medical care plan development were reviewed and approved by the faculty preceptor. The faculty preceptor is aware and concurs with the plan as stated in the body of this note and will attest to such by his/her cosignature. ATTENDING NOTE is a75 yr old w a hx of DVT, DM, dyslipidemia, anemia, gastric bypass, CKD4 and osteoporosis who presented w c/o of right sided flank pain and was found to have a 6cm renal mass (increased from 4 cm in March) CAROLANN Joiner discussed these findings w who recommended keeping the pt NPO trending Hg and ordering a renal US. The pt has had a pericardial effusion since March that has increased in size; overnight the pts BP decreased we ordered an Echo and consulted to r/o compressive effusion. She also has a 4.8 cm liver cyst pls f/u on US of the liver. For the UTI we will c/w abx. For the macrocytic acute anemia we checked iron studies, B12, folate and ordered PRBCs rest per 's H&P ELIZABETH PISANO DO May 05, 2020 22:45 BRYN CHAHAL MD May 06, 2020 03:08
[2020-05-06 02:41] LABS: INR 2.67
[2020-05-06] MEDS ORDERED: NS 1,000 ML IV ONE (02:45)
[2020-05-06 02:47] LABS: NT-PRO BNP 5744 PG/ML (<450)
[2020-05-06] MEDS ORDERED: MIRALAX *UNIT DOSE* 17GM PACKET PO PRN (03:00)
[2020-05-06] MEDS ORDERED: NS 500 ML IV ONE (03:00)
[2020-05-06 03:56] LABS: CK-MB VALUE MASS < 1.0 NG/ML (<3.6); CPK CREATINE PHOSPHOKINASE 45 U/L (26-192); MB/CK RELATIVE INDEX 2.22 (< OR =4); TROPONIN I < 0.02 NG/ML (< 0.10)
[2020-05-06 05:33] LABS: BLOOD UREA NITROGEN 74 MG/DL (7-18); CALCIUM LEVEL 7.7 MG/DL (8.8-10.2); CARBON DIOXIDE LEVEL 15 MEQ/L (21-32); CHLORIDE LEVEL 113 MEQ/L (98-107); CREATININE FOR GFR 2.97 MG/DL (0.55-1.30); GLOMERULAR FILTRATION RATE 16.4 (>39); GLUCOSE, FASTING 82 MG/DL (70-100); POTASSIUM SERUM 4.5 MEQ/L (3.5-5.1); SODIUM LEVEL 138 MEQ/L (136-145)
[2020-05-06] MEDS: HumaLOG INSULIN (NovoLOG) PER UNIT SC SCH ×4 (06:00→17:46)
[2020-05-06] MEDS: ACETAMINOPHEN TAB 650MG DOSE (2X325MG) PO PRN ×4 (06:08→21:31)
--- NOTE | 2020-05-06 08:14 | REPVR ---
PROCEDURE INFORMATION: Exam: CT Chest Without Contrast Exam date and time: 05/06/2020 7:51 AM Age: 75 years old Clinical indication: Other: F/u on pericardial effusion seen on CT of abd TECHNIQUE: Imaging protocol: Computed tomography of the chest without contrast. 3D rendering (Not supervised by radiologist): MIP and/or 3D reconstructed images were created by the technologist. Radiation optimization: All CT scans at this facility use at least one of these dose optimization techniques: automated exposure control; mA and/or kV adjustment per patient size (includes targeted exams where dose is matched to clinical indication); or iterative reconstruction. COMPARISON: CT Chest without contrast 03/13/2020 2:58 PM FINDINGS: Lungs: Interstitial prominence and mild basilar airspace disease. Bronchial calcification. Pleural space: Trace bilateral pleural effusions, with interval decrease in size of right pleural effusion. Heart: Coronary artery calcification. Pericardial effusion , which currently measures 2.0 cm in maximum diameter and previously measured 1.5 cm. Mediastinal space: Large hiatal hernia. Aorta: Calcification and ectasia of the thoracic aorta. Lymph nodes: Subcentimeter lymph nodes. Diaphragm: Asymmetric elevation of the right hemidiaphragm. Bones/joints: Old rib fractures. Degenerative change and mild scoliosis. Soft tissues: Punctate breast calcifications. Subcutaneous edema. IMPRESSION: 1. Trace bilateral pleural effusions, with interval decrease in size of right pleural effusion. 2. Pericardial effusion , which currently measures 2.0 cm in maximum diameter and previously measured 1.5 cm. 3. Additional findings as described above. Electronically signed by: Derick Clarke On 05/06/2020 08:14:21 AM
[2020-05-06] MEDS: SIMVASTATIN 10 MG TAB PO SCH (08:56)
[2020-05-06] MEDS: allopurinoL 100 MG TAB PO SCH (08:57)
[2020-05-06] MEDS ORDERED: ASPIRIN 81 MG ENTERIC TAB PO SCH (09:00)
[2020-05-06] MEDS ORDERED: FUROSEMIDE 20 MG TAB PO SCH (09:00)
--- NOTE | 2020-05-06 09:00 | REPVR ---
PROCEDURE INFORMATION: Exam: US Abdomen, Limited; Right Upper Quadrant Exam date and time: 05/06/2020 8:26 AM Age: 75 years old Clinical indication: Abnormal findings; Abnormal radiologic finding of the abdomen; Prior surgery; Surgery date: 1-6 months; Surgery type: Infected stent removal 03/2020; Additional info: 4.8 cm liver cyst w high attenuation on CT TECHNIQUE: Imaging protocol: US abdomen. Real time ultrasound with image documentation. Limited exam focused on the right upper quadrant. COMPARISON: CT ABD PELVIS W/O CONTRAST 05/05/2020 3:53 PM FINDINGS: Liver: 6.1 cm complex cyst in the inferior right hepatic lobe, along with fatty infiltration of the liver. Gallbladder: No cholelithiasis or pericholecystic fluid. Common bile duct: Borderline dilatation of the incompletely visualized common bile duct measuring 7.6 mm in diameter. Pancreas: Fatty replacement of the pancreas with partial obscuration of the pancreatic tail by bowel gas. Right kidney: Increased right renal parenchymal echotexture consistent with medical renal disease. Multiple right renal cysts, including an exophytic complex septated 9.4 x 5.8 x 10.4 cm cystic mass about the lateral right kidney. CT detected renal calculi are not well visualized on the current study. Note the aforementioned findings were better visualized on the recent CT exam. IMPRESSION: 1. Increased right renal parenchymal echotexture consistent with medical renal disease. Multiple right renal cysts, including an exophytic complex septated 9.4 x 5.8 x 10.4 cm cystic mass about the lateral right kidney. 2. 6.1 cm complex cyst in the inferior right hepatic lobe, along with fatty infiltration of the liver. Electronically signed by: Derick Clarke On 05/06/2020 09:00:23 AM
[2020-05-06] MEDS ORDERED: cefTRIAXone SOD 1 GM in D5W MINI-BAG PLUS 50 ML IV SCH (10:00)
--- NOTE | 2020-05-06 11:14 | CR ---
DATE OF CONSULTATION: 05/06/2020 REASON FOR CONSULTATION: Earlier this morning around 2:00 in the morning, I was called with the findings of a pericardial effusion on CT scan with the patient being hypotensive. I then asked for an echocardiogram and reviewed the CT myself last night. The CT shows a small loculated small localized pericardial effusion along the border at the right atrium. I asked for an echocardiogram and echocardiogram did not even see a pericardial effusion, and there was no compression. It was felt that her systolic function was acceptable. I have communicated with the hospitalist service regarding the lack of pericardial effusion on echocardiogram and the very small pericardial effusion along the right atrial border seen on CT scan. Regretfully the CT scan was not well described, and therefore that prompted the call to me last night. As there is no pericardial effusion on echo and no signs of compression I will defer seeing the patient. JOSSY
[2020-05-06 11:49] LABS: HEMATOCRIT 30.3 % (36.0-47.0); MEAN CORPUSCULAR HEMOGLOBIN 31.8 pg (27.0-33.0); MEAN CORPUSCULAR VOLUME 99.3 fl (80.0-96.0); PLATELET COUNT, AUTOMATED 349 10^3/uL (150-450); RED BLOOD COUNT 3.05 10^6/uL (4.00-5.40); WHITE BLOOD COUNT 11.4 10^3/uL (4.0-10.0)
[2020-05-06 11:57] LABS: HEMOGLOBIN 9.7 g/dl (12.0-15.5)
[2020-05-06 11:58] LABS: HEMATOCRIT 30.3 % (36.0-47.0)
--- NOTE | 2020-05-06 13:34 | IPNPDOC ---
Text Note Date of Service The patient was seen on 05/06/20. NOTE Subjective: -Still has some mild right sided flank and lower right abdominal pain -Otherwise doing ok Objective: General: NAD Eye: PERRLA, EOMI ENT: MMM Neck: Supple Chest: CTAB, no rales or wheezing Heart: RRR, no mrg Abdomen: Normal bowel sounds, soft, tender R flank and R lower abdomen Neuro Exam: CN2-12 intact, AOx3, moving all extremities Psych: normal affect Labs: Reviewed WBC 11.4 Hgb 9.7 Platelets 349 na 138 K 4.5 Cr 2.97 Microbiology 05/05/20 Urine Culture, Received Pending Plan 1. Right nephrolithiasis. Two non-obstructing 3 mm right renal calculi shown on CT abd/pelvis. On gentle fluids. Tylenol for pain control for now. Cont home med Sodium bicarb. 2. UTI/Pyuria. UA pos for 86WBC with 3 bacteria. Patient has leukocytosis. DC empiric meropenem and switch to keflex, given history of E.coli. 3. Right cystic mass. CT abd/pelvis showed "complex 6 cm lobulated exophytic cystic mass arising from the inferolateral right kidney, which previously measur ed 4.0 cm." -Urology consulted, spoke with Dr. Paris who highly suspects a hemorrhagic cyst and would like her off her eliquis for ~10d before removal. To follow up in clinic. 4. Anemia, normocytic. -Continue to monitor H&H daily -Transfer to Hgb >8 -Iron studies in 04/2020 consistent with AOCI -Cont home ferrous sulfate. -Follows nephrology and gets PRBC transfusion/iron infusions periodically. -s/p 2u pRBCs 5. History of gout. -Cont home med Allopurinol 6. HTN. -Cont home med Carvedilol with holding parameters. -Hold home med Lasix as patient is on gentle fluid hydration after 500ml NS bolus. 7. NIDDM. -consistent carb diet -FSBG AC/HS -SSI -Hypoglycemia protocol. 8. History of bypass surgery with small bowel dilatation at the anastomotic site. Centrum multivitamin not available in house, replace with in house multivitamin. DVT ppx: TEDs and SCDs VS,Fishbone, I+O VS, Fishbone, I+O Laboratory Tests 05/05/20 15:45 9/1/20 15:46 05/05/20 23:53 05/06/20 03:26 05/06/20 11:04 Vital Signs Date Time Temp Pulse Resp B/P (MAP) Pulse Ox O2 Delivery O2 Flow Rate FiO2 05/06/20 12:00 98.8 71 18 123/59 (80) 99 Room Air I&O- Last 24 Hours up to 6 AM 05/06/20 06:00 Intake Total 0 ml Output Total 800 ml Balance -800 ml JULES ELIZABETH MD May 06, 2020 13:34
[2020-05-06] MEDS: traMADol 50 MG TAB PO PRN ×2 (14:54→22:33)
--- NOTE | 2020-05-06 15:20 | SMCUROLCON ---
Urology Consultation General Date of Consultation 05/06/20 Reason For Consultation This patient is seen for Flank Pain. History of Present Illness This is a 75 y/o F w/ a PMH significant for DM, HTN, anemia, CKD, recurrent UTIs, kidney stones, and renal cysts, who was admitted yesterday evening for R flank pain, a possible pericardial effusion, and a growing R renal mass. Urology is consulted regarding the growing R renal mass. She was originally found to have this mass on her kidney on CT 2 months ago and at that time it was thought to represent a possible hematoma. She notes that she has had R flank pain since then and that more recently it has gotten worse. She denies n/v. On CT A/P done in the ER yesterday, it was notable for an increase in size of the R renal mass to 6cm. Other than renal cysts, no other lesions are seen. She notably also has a R ureteral stent in place from a recent surgery in [place]. She does not have details on whether she has f/u to have this removed or how l di it needs to be in place. She denies dysuria. She denies fevers or chills. Past Medical History Medical History see HPI Surgical Hstory cataract surgery, L arm AVF, gastric bypass, kidney stone surgery Medications Current Medications Current Medications Medications (Trade) Dose Ordered Sig/Mundo Route PRN Reason Start Time Stop Time Status Last Admin Dose Admin Acetaminophen (Tylenol Tab) 650 mg Q4H PRN PO PAIN OR FEVER 05/05/20 22:15 05/06/20 10:23 Allopurinol (Zyloprim) 100 mg DAILY PO 05/06/20 09:00 05/06/20 08:57 Apixaban (Eliquis) 5 mg BID PO 05/05/20 21:00 05/06/20 12:54 DC 05/06/20 01:15 Aspirin (Ecotrin) 81 mg DAILY PO 05/06/20 09:00 Hold Carvedilol (COReg) 6.25 mg BID PO 05/05/20 21:00 Ceftriaxone Sodium 1 gm/ Dextrose 50 ml @ 100 mls/hr Q12H IV 05/06/20 10:00 05/06/20 12:59 DC 05/06/20 09:41 Cephalexin Monohydrate (Keflex) 250 mg Q8H PO 05/06/20 22:00 Dextrose (Dextrose 50%) 25 ml ASDIRECTED PRN IV SEE LABEL COMMENTS 05/05/20 22:45 Fentanyl (Duragesic) 12 mcg Q3DP PRN TOP SEVERE PAIN (PS 8-10) 05/05/20 22:15 05/05/20 22:32 DC Ferrous Sulfate (Ferrous Sulfate) 325 mg DAILY PO 05/06/20 09:00 05/06/20 08:57 Ferrous Sulfate (Ferrous Sulfate) 650 mg QHS PO 05/05/20 21:00 05/06/20 01:19 Furosemide (Lasix) 20 mg DAILY PO 05/06/20 09:00 05/05/20 22:47 DC Glucagon (Glucagon) 1 mg ASDIRECTED PRN SC SEE LABEL COMMENTS 05/05/20 22:45 Glucose (Glucose) 16 GM ASDIRECTED PRN PO SEE LABEL COMMENTS 05/05/20 22:45 Home Med (Med Rec Complete!) ASDIRECTED XX 05/05/20 21:15 05/05/20 21:11 DC Insulin Human Lispro (HumaLOG INSULIN) SEE PROTOCOL TABLE Q6H SC 05/06/20 00:00 Meropenem 500 mg/ IV Miscellaneous Supplies 50 ml @ 100 mls/hr Q12H IV 05/06/20 01:00 05/06/20 09:12 DC 05/06/20 02:23 Non-Formulary Medication ( See Comment Field Below ) SEE COMMENTS SECTION ASDIRECTED TOP 05/05/20 22:15 05/05/20 22:32 DC Polyethylene Glycol (Miralax) 1 pkt DAILYPRN PRN PO CONSTIPATION 05/06/20 03:00 Potassium Chloride (Micro-K Extencaps) 10 meq QHS PO 05/05/20 21:00 05/06/20 01:15 Simvastatin (Zocor) 10 mg DAILY PO 05/06/20 09:00 05/06/20 08:56 Sodium Bicarbonate (Sodium Bicarbonate) 650 mg BID PO 05/05/20 21:00 05/06/20 08:55 Sodium Chloride 500 ml @ 0 mls/hr BOLUS STAT IV 05/06/20 01:26 05/06/20 01:27 DC 05/06/20 02:05 Sodium Chloride 1,000 ml @ 60 mls/hr [id number] IV 05/05/20 21:15 05/06/20 01:16 Allergies Allergies: Coded Allergies: No Known Allergies (Unverified , 02/25/20) Review of Systems Constitutional: Denies: Fever, Chills Pulmonary: Denies: Dyspnea, Cough Cardiovascular: Denies Chest Pain, Denies Palpitations Gastrointestinal: Reports: Abdominal Pain (radiating from R flank); Denies: Nausea, Vomiting Genitourinary: Denies: Dysuria Musculoskeletal: Reports: Back Pain (R flank) Psych: Reports: Mood Normal Physical Examination General Exam: Alert, Cooperative, No Acute Distress Chest Exam: Normal air movement Heart Exam: Rate Normal Abdomen Exam: Soft, Tenderness (mild RLQ) Skin Exam: Nl turgor and temperature Neuro Exam: Normal Speech Psych Exam: Mental status NL, Mood NL Vital Signs/I&O Vital Signs Date Time Temp Pulse Resp B/P (MAP) Pulse Ox O2 Delivery O2 Flow Rate FiO2 05/06/20 12:00 98.8 71 18 123/59 (80) 99 Room Air I&O- Last 24 Hours up to 6 AM 05/06/20 05:59 Intake Total 0 ml Output Total 400 ml Balance -400 ml Laboratory Data 24H Labs Laboratory Tests 2 05/05/20 15:45: Anion Gap 9, Glomerular Filtration Rate 16.1L, Calcium Level 7.8L, Iron Level 15L, Total Iron Binding Capacity 163L, Transferrin % Saturation 9.2L, Ferritin 265H, Total Bilirubin 0.3, Direct Bilirubin 0.2, Aspartate Amino Transf (AST/SGOT) 26, Alanine Aminotransferase (ALT/SGPT) 26, Alkaline Phosphatase 134H, Total Creatine Kinase 52, Creatine Kinase MB < 1.0, Creatine Kinase MB Relative Index 1.92, Troponin I < 0.02, AQ-Hwi-M-Type Natriuretic Peptide 5744H, Total Protein 5.9L, Albumin 2.1L, Albumin/Globulin Ratio 0.6L, Lipase 152 05/05/20 15:46: Immature Granulocyte % (Auto) 0.7, Neutrophils (%) (Auto) 81.3H, Lymphocytes (%) (Auto) 10.1L, Monocytes (%) (Auto) 7.6H, Eosinophils (%) (Auto) 0.1, Basophils (%) (Auto) 0.2, Neutrophils # (Auto) 9.1H, Lymphocytes # (Auto) 1.1L, Monocytes # (Auto) 0.8, Eosinophils # (Auto) 0.0, Basophils # (Auto) 0.0, Nucleated Red Blood Cells % (auto) 0.0 05/05/20 17:14: Lactic Acid Level 0.7 05/05/20 18:43: Urine Color YELLOW, Urine Appearance HAZY, Urine pH 5.0, Urine Specific [place] 1.011, Urine Protein NEGATIVE, Urine Glucose (UA) NEGATIVE, Urine Ketones NEGATIVE, Urine Blood 2+H, Urine Nitrite NEGATIVE, Urine Bilirubin NEGATIVE, Urine Urobilinogen 0.2, Urine Leukocyte Esterase 2+H, Urine WBC (Auto) 86H, Urine RBC (Auto) 21H, Urine Hyaline Casts (Auto) 0, Urine Bacteria (Auto) 3+H, Urine Squamous Epithelial Cells 0, Urine Mucus (Auto) SMALL, Urine Sperm (Auto) 05/06/20 00:15: Prothrombin Time 29.0H, Prothromb Time International Ratio 2.67, Activated Partial Thromboplast Time 45.0H 05/06/20 03:26: Anion Gap 10, Glomerular Filtration Rate 16.4L, Calcium Level 7.7L, Total Creatine Kinase 45, Creatine Kinase MB < 1.0, Creatine Kinase MB Relative Index 2.22, Troponin I < 0.02 05/06/20 11:04: Nucleated Red Blood Cells % (auto) 0.0 CBC/BMP Laboratory Tests 05/05/20 15:45 05/05/20 15:46 05/05/20 23:53 05/06/20 03:26 05/06/20 11:04 Microbiology Microbiology 05/05/20 Urine Culture, Received Pending Assessment This is a 75 y/o F admitted for R flank pain, anemia, a possible pericardial effusion, and a growing R renal mass. The mass is either an abscess, a tumor, or a hemorrhagic cyst. It is not likely an abscess as I would expect her WBC to be much higher and for her to be having fevers. Renal tumors do not normally grow at this rate. This is likely a hemorrhagic cyst. This would explain her drop in Hb and pain. Her being on eliquis likely caused it to continue bleeding. She is s/p transfusion of 2u PRBC. Her repeat Hb went up appropriately. Her vitals have been stable. Plan - ok to treat UTI w/ PO abx based on positive culture from 04/28/20 - check Hb q6hrs - hold eliquis - OOB as tolerated - suspect the cyst will stop bleeding as long as eliquis is held for a few wks - do not recommend a biopsy as this will likely cause more bleeding - will follow JETT CRUM MD May 06, 2020 15:20
[2020-05-06] MEDS: CEPHALEXIN 250MG CAPSULE PO SCH (21:32)
[2020-05-07] VITALS: BP 129/50
[2020-05-07] MEDS: NS 1,000 ML IV SCH (01:16)
[2020-05-07 04:00] VITALS: BP 126/60
[2020-05-07] MEDS: ACETAMINOPHEN TAB 650MG DOSE (2X325MG) PO PRN ×2 (04:43→08:46)
[2020-05-07 05:31] LABS: HEMATOCRIT 26.8 % (36.0-47.0); HEMOGLOBIN 8.8 g/dl (12.0-15.5); MEAN CORPUSCULAR HEMOGLOBIN 31.2 pg (27.0-33.0); MEAN CORPUSCULAR HGB CONC 32.8 g/dl (32.0-36.5); PLATELET COUNT, AUTOMATED 334 10^3/uL (150-450); RED BLOOD COUNT 2.82 10^6/uL (4.00-5.40); WHITE BLOOD COUNT 12.1 10^3/uL (4.0-10.0)
[2020-05-07] MEDS: HumaLOG INSULIN (NovoLOG) PER UNIT SC SCH ×3 (05:45→11:27)
[2020-05-07] MEDS: CEPHALEXIN 250MG CAPSULE PO SCH (05:57)
[2020-05-07] MEDS: traMADol 50 MG TAB PO PRN ×2 (05:57→13:34)
[2020-05-07 06:27] LABS: CALCIUM LEVEL 7.4 MG/DL (8.8-10.2); CREATININE FOR GFR 2.73 MG/DL (0.55-1.30); GLOMERULAR FILTRATION RATE 18.1 (>39); POTASSIUM SERUM 4.3 MEQ/L (3.5-5.1)
[2020-05-07 08:00] VITALS: BP 122/59
[2020-05-07] MEDS ORDERED: TRAM50TA2 PO (08:42)
[2020-05-07] MEDS ORDERED: KEFL250C11 PO (08:42)
[2020-05-07] MEDS: SIMVASTATIN 10 MG TAB PO SCH (08:43)
[2020-05-07] MEDS: SODIUM BICARBONATE 325 MG TAB PO SCH (08:43)
[2020-05-07] MEDS: FERROUS SULFATE 325MG TAB PO SCH (08:44)
[2020-05-07] MEDS: allopurinoL 100 MG TAB PO SCH (08:44)
[2020-05-07 08:45] VITALS: BP 122/59
[2020-05-07] MEDS: CARVedilol 6.25 MG TAB PO SCH (08:45)
--- NOTE | 2020-05-07 11:06 | DS.PDOC ---
Discharge Summary General Date of Admission May 05, 2020 at 21:15 Date of Discharge 05/07/2020 Attending Physician: JULES ELIZABETH MD Discharge Summary PROCEDURES PERFORMED DURING STAY: None ADMITTING DIAGNOSES: 1. Flank pain DISCHARGE DIAGNOSES: 1. UTI 2. Non obstructing nephrolithiasis 3. Likely hemorrhagic renal cyst 4. Acute on chronic normocytic anemia 5. DM 6. HTN 7. CKD 8. History of recurrent DVTs on eliquis COMPLICATIONS/CHIEF COMPLAINT: Flank Pain. HISTORY OF PRESENT ILLNESS: 75 y/o W w/ a PMH significant for DM, HTN, anemia, CKD, recurrent UTIs, kidney s tones, and renal cysts, who was admitted for R flank pain, a possible pericardial effusion, and a growing R renal mass. HOSPITAL COURSE: Urology is consulted regarding the growing R renal mass. She was originally found to have this mass on her kidney on CT 2 months ago and at that time it was thought to represent a possible hematoma. She notes that she has had R flank pain since then and that more recently it has gotten worse. This admission the mass was noted to have mildly increased and was complex and loculated in nature. On evaluation and review of her imaging, Dr. Paris highly suspects a complex hemorrhagic cyst that is bleeding in the setting of eliquis and recommended holding her eliquis for at least 1 week and did not recommend a biopsy and will see her in clinic. In the mean time, she was found to have non obstructing calculi and an E.coli UTI for which she is now being discharged home on Keflex to complete a 7d course. I am discontinuing her suppressive macrobid per nephrology because her E.coli has some resistance to it. She also had acute on chronic anemia for which she received 2 units of pRBCs with stable post transfusion CBCs. DISCHARGE MEDICATIONS: Please see below. ALLERGIES: Please see below. PHYSICAL EXAMINATION ON DISCHARGE: VITAL SIGNS: Please see below. General: NAD Eye: PERRLA, EOMI ENT: MMM Neck: Supple Chest: CTAB, no rales or wheezing Heart: RRR, no mrg Abdomen: Normal bowel sounds, soft, tender R flank and R lower abdomen Neuro Exam: CN2-12 intact, AOx3, moving all extremities Psych: normal affect LABORATORY DATA: Please see below. IMAGING: CT A/P: 1. Poorly defined complex 6 cm lobulated exophytic cystic mass arising from the inferolateral right kidney, which previously measured 4.0 cm. 2. Two nonobstructing 3 mm right renal calculi. 3. Status post bypass surgery with small bowel dilatation at the anastomotic site. CT chest: 1. Trace bilateral pleural effusions, with interval decrease in size of right pleural effusion. 2. Pericardial effusion , which currently measures 2.0 cm in maximum diameter and previously measured 1.5 cm. STAT TTE: clinically insignificant small pericardial effusion. The official read is still pending Renal US: 1. Increased right renal parenchymal echotexture consistent with medical renal disease. Multiple right renal cysts, including an exophytic complex septated 9.4 x 5.8 x 10.4 cm cystic mass about the lateral right kidney. 2. 6.1 cm complex cyst in the inferior right hepatic lobe, along with fatty infiltration of the liver. PROGNOSIS: Good ACTIVITY: As tolerated DIET: regular DISCHARGE PLAN: Hold eliquis for 1 week, with close urology and PCP follow up DISPOSITION: Home DISCHARGE INSTRUCTIONS: 1. Please take the remaining 5d of keflex for the UTI and hold taking your eliquis until you see Dr. Paris in urology clinic within the next 7d ITEMS TO FOLLOWUP ON ON OUTPATIENT: 1. E.coli UTI 2. Hemorrhagic cyst 3. Acute on chronic anemia 4. Restarting plan for her anticoagulation DISCHARGE CONDITION: Stable TIME SPENT ON DISCHARGE: 54 minutes. Vital Signs/I&Os Vital Signs Date Time Temp Pulse Resp B/P (MAP) Pulse Ox O2 Delivery O2 Flow Rate FiO2 05/07/20 06:27 18 05/07/20 04:00 98.1 68 126/60 (82) 96 Room Air I&O- Last 24 Hours up to 6 AM 05/07/20 06:00 Intake Total 1847 ml Output Total 950 ml Balance 897 ml Laboratory Data Labs 24H Laboratory Tests 2 05/06/20 11:04: Nucleated Red Blood Cells % (auto) 0.0, Vitamin B12 Level > 2000H 05/07/20 05:15: Nucleated Red Blood Cells % (auto) 0.0, Anion Gap 11, Glomerular Filtration Rate 18.1L, Calcium Level 7.4L CBC/BMP Laboratory Tests 05/06/20 11:04 05/06/20 17:47 05/06/20 23:51 05/07/20 05:15 Microbiology Microbiology 05/05/20 Urine Culture - Final, Complete Escherichia Coli Discharge Medications Scheduled Allopurinol (Allopurinol) 100 Mg Tab, 100 MG PO DAILY, (Reported) Apixaban (Eliquis) 5 Mg Tablet, 5 MG PO BID, (Reported) Aspirin (Aspirin EC) 81 Mg Tab, 81 MG PO DAILY, (Reported) Carvedilol (Carvedilol) 6.25 Mg Tab, 6.25 MG PO BID, (Reported) Cephalexin (Keflex) 250 Mg Capsule, 250 MG PO Q8H Ergocalciferol (Vitamin D2) (Vitamin D2) 50,000 Units Cap, 50,000 UNITS PO QMONTH, (Reported) 1ST OF EACH MONTH Ferrous Sulfate (Iron) 325 Mg Tablet, 325 MG PO DAILY, (Reported) Ferrous Sulfate (Iron) 325 Mg Tablet, 650 MG PO QHS, (Reported) Furosemide (Furosemide) 20 Mg Tab, 20 MG PO DAILY, (Reported) Mirabegron (Myrbetriq) 50 Mg Tab, 50 MG PO DAILY, (Reported) Multivit-Min/Iron/Folic/Lutein (Centrum Silver Women Tablet) 1 Each Tablet, 1 TAB PO DAILY, (Reported) Nitrofurantoin Macrocrystal (Nitrofurantoin) 50 Mg Capsule, 50 MG PO DAILY, (Reported) Potassium Chloride (Potassium Chloride) 10 Meq Tab, 10 MEQ PO QHS, (Reported) Simvastatin (Simvastatin) 10 Mg Tab, 10 MG PO DAILY, (Reported) Sitagliptin Phosphate (Januvia) 25 Mg Tablet, 25 MG PO DAILY, (Reported) Sodium Bicarbonate (Sodium Bicarbonate) 325 Mg Tab, 650 MG PO BID, (Reported) Scheduled PRN Tramadol HCl (Tramadol HCl) 50 Mg Tablet, 50 MG PO Q8HP PRN for MODERATE PAIN (PS 5-7) Allergies Coded Allergies: No Known Allergies (Unverified , 02/25/20) JULES ELIZABETH MD May 07, 2020 08:39
[2020-05-07 12:00] VITALS: BP 118/57
--- NOTE | 2020-05-07 13:53 | IPNPDOC ---
Subjective Review oF Systems Chief Complaint The patient is a 75-year-old female admitted with a reason for visit of Flank Pain. Events since Last Encounter No acute events o/n. Notes only mild flank pain. No n/v. No f/c/ns. Objective Physical Examination General Exam: Alert, Cooperative, No Acute Distress Chest Exam: Clear to auscultation Heart Exam: Positive: Rate Normal, Regular Rhythm ABDOMEN EXAM: Soft, Tenderness (mild RLQ) Skin Exam: Nl turgor and temperature Neuro Exam: Normal Speech Psych Exam: Mental status NL, Mood NL Other physical findings mild R CVAT Vital Signs/I&O Vital Signs Date Time Temp Pulse Resp B/P (MAP) Pulse Ox O2 Delivery O2 Flow Rate FiO2 05/07/20 13:34 16 05/07/20 12:00 99.0 57 118/57 (77) 97 Room Air I&O- Last 24 Hours up to 6 AM 05/07/20 06:00 Intake Total 1847 ml Output Total 950 ml Balance 897 ml Laboratory Data Labs 24H Laboratory Tests 2 05/07/20 05:15: Nucleated Red Blood Cells % (auto) 0.0, Anion Gap 11, Glomerular Filtration Rate 18.1L, Calcium Level 7.4L CBC/BMP Laboratory Tests 05/06/20 17:47 05/06/20 23:51 05/07/20 05:15 Microbiology Microbiology 05/05/20 Urine Culture - Final, Complete Escherichia Coli Assessment/Plan Date Seen The patient was seen on 05/07/20. Patient Summary This is a 75 y/o F w/ a suspected enlarging hemorrhagic R renal cyst. Her Hb is stable. Her pain is minimal. Plan/VTE VTE Prophylaxis Ordered?: Yes Plan - recommend holding eliquis for 2 wks - ok for discharge home - patient advised on signs/symptoms of continued bleeding from the cyst and was asked to go to the ER if concerned - will arrange f/u in urology clinic next week - will need to monitor her Hb and get f/u imaging in about a month - regarding her R ureteral stent, we will need to obtain records from [facility] to determine when it can be removed JETT CRUM MD May 07, 2020 13:53
[2020-05-08 16:10] LABS: ANCA-ATYPICAL <1:20 titer (Neg:<1:20); ANGIOTENSIN 1 CONVERTING ENZYM 54 U/L (14-82); ANTINUCLEAR ANTIBODIES DIRECT Negative (Negative); CYTOPLASMIC NEUTROP AB ANCA-C <1:20 titer (Neg:<1:20); PERINUCLEAR AB ANCA-P <1:20 titer (Neg:<1:20); TRANSFERRIN 118 mg/dL (192-364)
--- NOTE | 2020-05-11 11:41 | ECHO ---
DATE OF PROCEDURE: 05/06/2020 Age: 75 PATIENT LOCATION: Room 3214 REASON FOR STUDY: Pericardial effusion. 2D MEASUREMENTS: IVS 0.8 cm LV 6.0 cm LVPW 1.0 cm LA 4.0 cm Aorta 3.2 cm RV 3.4 cm IVC 2.0 cm DOPPLER MEASUREMENT Peak velocity across the tricuspid valve 2.6 mm/s CONCLUSION 1. Normal left ventricular wall thickness with mildly increased left ventricular size, but within normal global left ventricle systolic function. The estimated left ventricular systolic ejection fraction is 60% to 65%. 2. Borderline enlarged left atrium. Normal right atrium and right ventricle. 3. The atrial septum appeared to be normal without evidence of defect or shunt. 4. Normal aortic root. 5. Minimally calcified aortic valve with normal leaflet excursion. Mildly calcified mitral annulus with normal arterial mitral valve leaflet motion. Normal tricuspid valve. The pulmonic valve and proximal pulmonary artery branches were not well visualized. 6. Inferior vena cava was mildly enlarged at 2.0 cm, central venous pressure mildly elevated. DOPPLER: It detects trace aortic regurgitation, mild mitral regurgitation, and mild tricuspid regurgitation. The calculated pulmonary artery systolic pressure varies between 30 to 40 mmHg. Abnormal relaxation pattern was noted across the mitral valve leaflets, as well as the mitral valve annulus consistent with features of grade 1 left ventricular diastolic dysfunction. IMPRESSION: 1. Normal global left ventricular systolic function. The left ventricle appeared to be mildly enlarged. There are features of left ventricular diastolic dysfunction manifested by abnormal relaxation. 2. Aortic valve sclerosis with trace aortic regurgitation. 3. Mitral annular calcification with mild mitral regurgitation and a borderline enlarged left atrium. 4. Mild tricuspid regurgitation with mild pulmonary hypertension. 5. Trace pericardial effusion was noted. No evidence cardiac tamponade. 6. There are some features of elevated central venous pressure. The inferior vena cava was mildly enlarged. [facility]
--- NOTE | 2020-05-26 12:09 | ECGEPIP ---
[facility] Test Date: 2020-05-06 Pat Name: ARIK SORIANO Department: Room: [place] [address] Gender: Female Hospital Cook: PATRICA : 1945 Requested By: ELIZABETH PISANO Order Number: [id number] Reading MD: Harry Moreno Measurements Intervals [place] Rate: 72 P: 27 WI: 161 QRS: -29 QRSD: 132 T: 11 QT: 428 QTc: 471 Interpretive Statements SINUS RHYTHM BORDERLINE LEFT AXIS DEVIATION INTRAVENTRICULAR CONDUCTION DELAY (NON-SPECIFIC) PRWP ABNORMAL ECG SEE SCANNED DOWNTIME REPORT
== END 2020-05-07 14:30 | disposition home or self-care (01) | DRG 690 ==
LOC: M ED 14:22 → M PCU 21:15 → ENRESERV 22:42 → M ED 23:12
PROVIDERS: ADMIT Internal Medicine; ATTEND Internal Medicine
PROC: 30233N1 Transfusion of Nonautologous Red Blood Cells into Peripheral Vein, Percutaneous Approach (ICD-10-PCS; principal; 2020-05-05)
DX: N39.0 Urinary tract infection, site not specified (principal); N18.4 Chronic kidney disease, stage 4 (severe); N28.1 Cyst of kidney, acquired; E11.22 Type 2 diabetes mellitus with diabetic chronic kidney disease; I12.9 Hypertensive chronic kidney disease with stage 1 through stage 4 chronic kidney disease, or unspecified chronic kidney disease; N20.0 Calculus of kidney; M81.0 Age-related osteoporosis without current pathological fracture; B96.20 Unspecified Escherichia coli [E. coli] as the cause of diseases classified elsewhere; E78.5 Hyperlipidemia, unspecified; D64.9 Anemia, unspecified; Z79.82 Long term (current) use of aspirin; Z79.899 Other long term (current) drug therapy; Z96.642 Presence of left artificial hip joint; Z98.84 Bariatric surgery status; Z86.718 Personal history of other venous thrombosis and embolism; K76.89 Other specified diseases of liver

== ENCOUNTER → 2020-05-22 | Outpatient (CLI) | payer MEDICARE, OTHER ==
[~2020-05-22] MED LIST changes: +IRON325T2 PO; +KEFL250C11 PO; +NITR50CA34 PO; +TRAM50TA2 PO
== END ==
LOC: M LABSMTC 12:28
PROVIDERS: ATTEND Pediatrics
DX: Z20.828 Contact with and (suspected) exposure to other viral communicable diseases (principal)

== ENCOUNTER → 2020-05-25 | Outpatient (CLI) | payer MEDICARE, OTHER ==
--- NOTE | 2020-06-04 10:16 | REP ---
RENAL ULTRASOUND HISTORY: Chronic kidney disease. COMPARISON: CT 05/05/2020. FINDINGS: Real-time sonographic evaluation of kidneys performed. There is mild left renal atrophy. Both kidneys are echogenic suggesting medical renal disease. The right kidney measures 10.5 x 4.2 x 4.4 cm and the left kidney 7.6 x 4.2 x 3.9 cm. There is mild bilateral hydronephrosis. Previously noted complex cystic collection/mass along the lateral right kidney is not definitely seen on todays exam. There is a mild amount of complex fluid just inferior to the right lobe of the liver and anterior to the kidney measuring 2.4 x 2.2 x 2.8 cm. A cyst in the right upper pole measures 1.5 cm in diameter. A calcification in the mid right kidney measures 6 mm in diameter. There is a 7 mm cyst in the right lower pole. On the left, a cyst in the mid aspect measures 1.3 cm. There is an adjacent 4 mm calcification. Two left lower pole cysts measure 2.0 and 1.2 cm maximally. Urinary bladder is not well distended, with no gross abnormality. IMPRESSION: Mild left renal atrophy. Echogenic renal echotexture suggests medical renal disease. There is mild bilateral hydronephrosis. Previously noted multiloculated area of fluid along the lateral right kidney is not definitely seen on todays exam. There is mild complex fluid just inferior to the right lobe of the liver anterior to the right kidney. This has a diameter maximally of 2.8 cm. There are small cysts and calcifications of each kidney as discussed above. MTDD
--- NOTE | 2020-06-04 10:16 | REP ---
KUB: SINGLE VIEW HISTORY: Nephrolithiasis. FINDINGS: Vascular calcification is seen in a tortuous splenic artery. There are surgical clips and sutures in the left upper quadrant of the abdomen and clips are seen scattered in the left mid abdomen. The left hip joint is a prosthesis. Bowel gas pattern is normal. There is a 4 mm calcific density projecting over the lower pole of the right kidney, which I suspect is an intrarenal stone. There are phleboliths in the pelvis bilaterally. No other definite urinary tract calculus is seen. IMPRESSION: Suspect 4-mm intrarenal calculus lower pole region right kidney. MTDD
== END ==
LOC: M RAD 12:27
PROVIDERS: ATTEND Urology
DX: N20.0 Calculus of kidney (principal); N28.1 Cyst of kidney, acquired

== ENCOUNTER → 2020-05-26 | Outpatient (CLI) | payer MEDICARE, OTHER ==
[2020-05-26 11:37] LABS: IONIZED CALCIUM 4.5 MG/DL (4.5-5.3)
[2020-05-26 11:41] LABS: HEMATOCRIT 25.3 % (36.0-47.0); HEMOGLOBIN 8.3 g/dl (12.0-15.5); MEAN CORPUSCULAR HEMOGLOBIN 31.7 pg (27.0-33.0); MEAN CORPUSCULAR HGB CONC 32.8 g/dl (32.0-36.5); MEAN CORPUSCULAR VOLUME 96.6 fl (80.0-96.0); PLATELET COUNT, AUTOMATED 440 10^3/uL (150-450); RED BLOOD COUNT 2.62 10^6/uL (4.00-5.40); WHITE BLOOD COUNT 8.5 10^3/uL (4.0-10.0)
[2020-05-26 12:10] LABS: CALCIUM LEVEL 8.1 MG/DL (8.8-10.2); CREATININE FOR GFR 2.28 MG/DL (0.55-1.30); GLOMERULAR FILTRATION RATE 22.2 (>39); PHOSPHORUS LEVEL 4.4 MG/DL (2.5-4.9); POTASSIUM SERUM 4.4 MEQ/L (3.5-5.1); URIC ACID 5.1 MG/DL (2.6-6.0)
[2020-05-26 12:18] LABS: PTH INTACT 120.7 PG/ML (18.5-88.0); TOTAL 25(OH) VITAMIN D 64.4 NG/ML (30.0-100.0)
[2020-05-26 13:29] LABS: HEMOGLOBIN A1c 5.8 %
[2020-05-27 17:07] LABS: G6PD2 2.64 x10E6/uL (3.77-5.28)
== END ==
LOC: M LAB 11:09
PROVIDERS: ATTEND Internal Medicine Nephrology
DX: Z01.818 Encounter for other preprocedural examination (principal); N20.0 Calculus of kidney; Z79.899 Other long term (current) drug therapy

== ENCOUNTER → 2020-06-02 | Outpatient (CLI) | payer MEDICARE, OTHER ==
[2020-06-02 17:10] LABS: BASO # 0.1 10^3/uL (0.0-0.2); BASO % 0.7 % (0.0-1.0); EOS # 0.3 10^3/uL (0.0-0.5); EOS % 3.6 % (0.0-3.0); HEMATOCRIT 29.5 % (36.0-47.0); HEMOGLOBIN 9.1 g/dl (12.0-15.5); LYMPH # 1.9 10^3/uL (1.5-5.0); LYMPH % 24.8 % (24.0-44.0); MEAN CORPUSCULAR HEMOGLOBIN 31.2 pg (27.0-33.0); MEAN CORPUSCULAR HGB CONC 30.8 g/dl (32.0-36.5); MONO # 0.6 10^3/uL (0.0-0.8); MONO % 8.2 % (0.0-5.0); NEUTROPHILS # 4.6 10^3/uL (1.5-8.5); PLATELET COUNT, AUTOMATED 405 10^3/uL (150-450); RED BLOOD COUNT 2.92 10^6/uL (4.00-5.40); WHITE BLOOD COUNT 7.5 10^3/uL (4.0-10.0)
[2020-06-02 18:20] LABS: HEMOGLOBIN A1c 5.7 %
[2020-06-02 20:28] LABS: ALBUMIN 2.6 GM/DL (3.2-5.2); ALT/SGPT 62 U/L (12-78); BILIRUBIN,TOTAL 0.4 MG/DL (0.2-1.0); BLOOD UREA NITROGEN 39 MG/DL (7-18); CALCIUM LEVEL 8.7 MG/DL (8.8-10.2); CARBON DIOXIDE LEVEL 22 MEQ/L (21-32); CHLORIDE LEVEL 109 MEQ/L (98-107); CREATININE FOR GFR 2.59 MG/DL (0.55-1.30); GLOMERULAR FILTRATION RATE 19.2 (>39); GLUCOSE, FASTING 84 MG/DL (70-100); POTASSIUM SERUM 3.9 MEQ/L (3.5-5.1); RHEUMATOID FACTOR QUANT < 10.0 IU/ML (<15.0); SODIUM LEVEL 139 MEQ/L (136-145); TOTAL PROTEIN 7.2 GM/DL (6.4-8.2)
[2020-06-03 13:39] LABS: FOLATE > 24.0 NG/ML; VITAMIN B12 LEVEL 1199 PG/ML
[2020-06-10 16:12] LABS: ANTINUCLEAR ANTIBODIES DIRECT Negative (Negative); VITAMIN B1 LEVEL WHOLE BLOOD 170.4 nmol/L (66.5-200.0); VITAMIN B6,PYRIDOXAL PHOSPHATE 21.7 ug/L (2.0-32.8); VITAMIN E(ALPHA TOCOPHEROL) 11.3 mg/L (9.0-29.0); VITAMIN E(GAMMA TOCOPHEROL) 0.7 mg/L (0.5-4.9)
== END ==
LOC: M LAB 15:56
PROVIDERS: ATTEND Psychiatry & Neurology Neurology
DX: R41.9 Unspecified symptoms and signs involving cognitive functions and awareness (principal); Z79.899 Other long term (current) drug therapy

== ENCOUNTER → 2020-06-05 | Outpatient (CLI) | payer MEDICARE, OTHER ==
--- NOTE | 2020-06-05 14:18 | REPMRS ---
Patient History The patient states she has not had a clinical breast exam in over a year. Family history of breast cancer at age 49 in daughter. No Hormone Replacement Therapy 3D TOMOSYNTHESIS WAS PERFORMED. [facility] for breast cancer is 5.4%. [facility] Digital Woman Screen Mammo: June 05, 2020 - Exam #: [id number] Bilateral CC and MLO view(s) were taken. Technologist: Monet Peters, Technologist Prior study comparison: June 04, 2019, bilateral digital woman screen mammo performed at [facility]. May 14, 2018, bilateral digital woman screen mammo performed at [facility]. FINDINGS: There are scattered fibroglandular densities. There has been no change in the appearance of the mammogram from the prior studies. There is a mild amount of residual fibroglandular tissue which is fairly symmetric. There is no interval development of dominant mass, architectural distortion, or clustered microcalcification suggestive of malignancy. Assessment: BI-RADS/ACR category 1 mammogram. Negative Mammogram. Recommendation Routine screening mammogram in 1 year (for women over age 40). This mammogram was interpreted with the aid of an FDA-approved computer-aided dectection system. Electronically Signed By: Asa Cartwright MD 06/05/20 1974
== END ==
LOC: M WHC 13:26
PROVIDERS: ATTEND Nurse Practitioner Family
DX: Z12.31 Encounter for screening mammogram for malignant neoplasm of breast (principal)

== ENCOUNTER → 2021-02-19 | Outpatient (REF) | payer MEDICARE, OTHER ==
[~2021-02-19] MED LIST changes: +ERGO500029 PO
== END ==
LOC: M LAB REF 16:50
PROVIDERS: ATTEND Internal Medicine Nephrology
DX: D64.9 Anemia, unspecified (principal); N18.9 Chronic kidney disease, unspecified

== ENCOUNTER → 2021-03-04 | Outpatient (CLI) | payer MEDICARE, OTHER ==
[2021-03-04 12:29] LABS: ALBUMIN 3.6 GM/DL (3.2-5.2); BILIRUBIN,DIRECT 0.2 MG/DL (0.0-0.2); BILIRUBIN,TOTAL 0.6 MG/DL (0.2-1.0); TOTAL PROTEIN 7.1 GM/DL (6.4-8.2)
== END ==
LOC: M LAB 11:21
PROVIDERS: ATTEND Internal Medicine Gastroenterology
DX: Q44.6 Cystic disease of liver (principal)

== ENCOUNTER → 2021-03-17 | Outpatient (REF) | payer MEDICARE, OTHER | LOC: M LAB REF 18:12 | PROVIDERS: ATTEND Urology | DX: N20.0 Calculus of kidney (principal) ==

== ENCOUNTER → 2021-03-23 | Outpatient (CLI) | payer MEDICARE, OTHER ==
--- NOTE | 2021-03-23 11:10 | REP ---
INDICATION: CYST OF LIVER. Complex liver cyst. The CT study showed possible sub hepatic abscess. COMPARISON: Comparison CT study May 28, 2020. Comparison renal sonogram May 25, 2020.. TECHNIQUE: Right upper quadrant sonography. FINDINGS: Scanning through the right upper quadrant the abdomen shows normal sized and walled gallbladder. No stone or polyp is seen by sonography. The common bile duct is normal measuring 0.2 cm in greatest diameter. No focal liver lesion is seen. The previously noted complex cystic area of from the inferior edge of the liver along the right kidney is no longer apparent by sonography. There is no evidence of free ascites. There is a 1.7 cm cyst in the right kidney again noted. Right renal dimensions are 9.7 x 4.1 x 3.9 cm. No hydronephrosis is seen.. IMPRESSION: The previously noted complex cystic area in the right sub a Paddock space is no longer apparent by sonography. There is a small right renal cyst. Otherwise negative.. <Electronically signed by Redd Moran > 03/23/21 [id number]
== END ==
LOC: M RAD 08:15
PROVIDERS: ATTEND Internal Medicine Gastroenterology
DX: Q44.6 Cystic disease of liver (principal)

== ENCOUNTER → 2021-03-26 | Outpatient (REF) | payer MEDICARE, OTHER ==
[~2021-03-26] MED LIST changes: -LISI2.5T2 PO; +LISI2.5T9 PO
== END ==
LOC: M LAB REF 16:53
PROVIDERS: ATTEND Internal Medicine Nephrology
DX: N18.9 Chronic kidney disease, unspecified (principal); D63.1 Anemia in chronic kidney disease; N39.0 Urinary tract infection, site not specified

== ENCOUNTER → 2021-06-07 | Outpatient (REF) | payer MEDICARE, OTHER ==
[2021-06-08 15:53] LABS: PERCENT SATURATION 11.6 % (13.2-45.0)
== END ==
LOC: M LAB REF 12:49
PROVIDERS: ATTEND Internal Medicine Nephrology
DX: D50.9 Iron deficiency anemia, unspecified (principal); N39.0 Urinary tract infection, site not specified

== ENCOUNTER → 2021-06-08 | Outpatient (CLI) | payer MEDICARE, OTHER ==
--- NOTE | 2021-06-08 10:34 | REPMRS ---
Patient History The patient states she had a clinical breast exam in June 2021. Family history of breast cancer at age 49 in daughter. No Hormone Replacement Therapy Patient states no breast complaints today. Patient has signed MRS History Sheet. Digital Woman Screen Mammo: June 08, 2021 - Exam #: [id number] Bilateral CC and MLO view(s) were taken. Technologist: Jessica Marquez, Technologist Prior study comparison: June 05, 2020, bilateral digital woman screen mammo performed at [facility]. June 04, 2019, bilateral digital woman screen mammo performed at [facility]. May 14, 2018, bilateral digital woman screen mammo performed at [facility]. FINDINGS: The breast tissue is heterogeneously dense. This may lower the sensitivity of mammography. The Volpara volumetric breast density category is: C. There is a moderate amount of heterogeneously dense fibroglandular tissue which is fairly symmetric. There is no interval development of dominant mass, architectural distortion, or grouped microcalcification typical of malignancy. There has been no change in the appearance of the mammogram from the prior studies. 3-D tomosynthesis shows no additional findings. Assessment: BI-RADS/ACR category 1 mammogram. Negative Mammogram. Recommendation Routine screening mammogram of both breasts in 1 year (for women over age 40). This patient's [facility] Lifetime Breast Cancer RIsk is estimated at 5.0 %. This mammogram was interpreted with the aid of an FDA-approved computer-aided dectection system. Electronically Signed By: Redd Moran MD 06/08/21 [id number]
== END ==
LOC: M WHC 09:02
PROVIDERS: ATTEND Obstetrics & Gynecology
DX: Z01.419 Encounter for gynecological examination (general) (routine) without abnormal findings (principal); Z12.31 Encounter for screening mammogram for malignant neoplasm of breast; Z80.3 Family history of malignant neoplasm of breast
CPT/HCPCS: 77063; 77067; G0101

== ENCOUNTER → 2022-01-18 | Outpatient (REF) | payer MEDICARE, OTHER ==
[2022-01-18 18:15] LABS: PERCENT SATURATION 21.3 % (13.2-45.0)
== END ==
LOC: M LAB REF 16:44
PROVIDERS: ATTEND Internal Medicine Nephrology
DX: D50.9 Iron deficiency anemia, unspecified (principal)

== ENCOUNTER → 2022-02-03 | Outpatient (CLI) | payer MEDICARE, OTHER | LOC: M RAD 08:22 | PROVIDERS: ATTEND Internal Medicine Gastroenterology | DX: R93.2 Abnormal findings on diagnostic imaging of liver and biliary tract (principal); D37.6 Neoplasm of uncertain behavior of liver, gallbladder and bile ducts ==

== ENCOUNTER → 2022-02-18 | Outpatient (REF) | payer MEDICARE, OTHER | LOC: M LAB REF 17:46 | PROVIDERS: ATTEND Internal Medicine Nephrology | DX: N18.9 Chronic kidney disease, unspecified (principal); D63.1 Anemia in chronic kidney disease ==

== ENCOUNTER → 2022-03-11 | Outpatient (CLI) | payer MEDICARE, OTHER ==
[2022-03-11 11:10] LABS: BASO % 0.4 % (0.0-1.0); EOS # 0.3 10^3/uL (0.0-0.5); EOS % 4.1 % (0.0-3.0); HEMATOCRIT 28.9 % (36.0-47.0); LYMPH # 1.2 10^3/uL (1.5-5.0); LYMPH % 16.5 % (24.0-44.0); MEAN CORPUSCULAR HEMOGLOBIN 32.3 pg (27.0-33.0); MEAN CORPUSCULAR HGB CONC 31.1 g/dl (32.0-36.5); MEAN CORPUSCULAR VOLUME 103.6 fl (80.0-96.0); MONO # 0.6 10^3/uL (0.0-0.8); MONO % 7.8 % (2.0-8.0); NEUTROPHILS % 70.6 % (36.0-66.0); PLATELET COUNT, AUTOMATED 294 10^3/uL (150-450); RED BLOOD COUNT 2.79 10^6/uL (4.00-5.40)
[2022-03-11 11:42] LABS: ALBUMIN 3.2 GM/DL (3.2-5.2); BILIRUBIN,TOTAL 0.4 MG/DL (0.2-1.0); CALCIUM LEVEL 9.2 MG/DL (8.8-10.2); CREATININE FOR GFR 3.61 MG/DL (0.55-1.30); TOTAL PROTEIN 6.5 GM/DL (6.4-8.2)
== END ==
LOC: M LAB 10:27
PROVIDERS: ATTEND Family Medicine
DX: R42 Dizziness and giddiness (principal)

== ENCOUNTER → 2022-03-31 | Outpatient (REF) | payer MEDICARE, OTHER ==
[~2022-03-31] MED LIST changes: +POTA-150 PO; -POTA10TA17 PO
== END ==
LOC: M LAB REF 16:59
PROVIDERS: ATTEND Internal Medicine Nephrology
DX: N18.9 Chronic kidney disease, unspecified (principal); D63.1 Anemia in chronic kidney disease

== ENCOUNTER → 2022-04-21 | Outpatient (CLI) | payer MEDICARE, OTHER ==
[2022-04-21 14:15] LABS: CREATININE FOR GFR 4.7 MG/DL (0.55-1.30); GLOMERULAR FILTRATION RATE 9.6 (>39)
== END ==
LOC: M LAB 13:05
PROVIDERS: ATTEND Psychiatry & Neurology Neurology
DX: N39.9 Disorder of urinary system, unspecified (principal)

== ENCOUNTER 2022-06-07 14:50 | Outpatient (CLI) | payer MEDICARE, OTHER ==
[~2022-06-07] VITALS: Ht 161.3 cm; Wt 78.5 kg
[2022-06-07 13:00] VITALS: BP 146/63
[~2022-06-07 14:50] MED LIST changes: +ALBUTEROL SULFATE 2.5 MG/0.5 ML INH NEB SOLN INH PRN; +EPINEPHrine INJ 1 MG/ML 1ML AMP IM PRN; +diphenhydrAMINE 50MG/ML VIAL (J1200) IV PRN; +methylPREDNISolone 125MG 2ML VIAL IV PRN
[2022-06-07] MEDS ORDERED: NS 1,000 ML IV SCH (15:10)
[2022-06-07] MEDS ORDERED: FERRIC CARBOXYMALTOSE INJ 750 MG in NS 250 ML (>50kg) IV ONE ×3 (15:30)
[2022-06-07 16:44] VITALS: BP 171/69
== END 2022-06-07 16:45 | disposition home or self-care (01) ==
LOC: M INFU 14:50
PROVIDERS: ATTEND Internal Medicine Nephrology
DX: D50.9 Iron deficiency anemia, unspecified (principal)
CPT/HCPCS: 96365; J1439

== ENCOUNTER → 2023-01-11 | Outpatient (REF) | payer MEDICARE, OTHER ==
[~2023-01-11] MED LIST changes: -ALBUTEROL SULFATE 2.5 MG/0.5 ML INH NEB SOLN INH PRN; -EPINEPHrine INJ 1 MG/ML 1ML AMP IM PRN; -diphenhydrAMINE 50MG/ML VIAL (J1200) IV PRN; -methylPREDNISolone 125MG 2ML VIAL IV PRN
[2023-01-11 17:48] LABS: FERRITIN 37.4 NG/ML (7.3-270.7)
== END ==
LOC: M LAB REF 16:51
PROVIDERS: ATTEND Internal Medicine Nephrology
DX: D50.9 Iron deficiency anemia, unspecified (principal)

== ENCOUNTER → 2023-02-20 | Outpatient (CLI) | payer MEDICARE, OTHER ==
[~2023-02-20] VITALS: Ht 160 cm; Wt 66.8 kg
[~2023-02-20] MED LIST changes: +HEPARIN 1,000UNITS/ML 10ML VIAL (FOR RADIOLOGY & DIALYSIS ONLY) As Ordered ONE; +LIDOCAINE W/EPINEPHRINE 1% 20ML VIAL As Ordered ONE; +MIDAZOLAM INJ 2MG/2ML VIAL As Ordered ONE; +ceFAZolin 2 GM/D5W 50 ML IV BAG As Ordered ONE; +ceFAZolin SOD 2 GM in IV 1 EA IV ONE; +fentaNYL 100 MCG/2 ML INJECTION As Ordered ONE
[2023-02-20 10:40] VITALS: TEMP 98.3
[2023-02-20 11:32] LABS: HEMATOCRIT 25.9 % (36.0-47.0); HEMOGLOBIN 8.3 g/dl (12.0-15.5); MEAN CORPUSCULAR HEMOGLOBIN 31.9 pg (27.0-33.0); MEAN CORPUSCULAR VOLUME 99.6 fl (80.0-96.0); PLATELET COUNT, AUTOMATED 309 10^3/uL (150-450); WHITE BLOOD COUNT 7.4 10^3/uL (4.0-10.0)
[2023-02-20 11:41] LABS: INR 1.18; PARTIAL THROMBOPLASTIN TIME 27.3 SECONDS (24.8-34.2); PROTHROMBIN TIME 15.2 SECONDS (12.5-14.5)
[2023-02-20 11:49] LABS: CALCIUM LEVEL 8.9 MG/DL (8.3-10.6); CREATININE FOR GFR 4.7 MG/DL (0.55-1.30); GLOMERULAR FILTRATION RATE 9.6 (>39); POTASSIUM SERUM 4.1 MMOL/L (3.5-5.1)
[2023-02-20 14:30] VITALS: BP 145/63; O2SAT 99
== END ==
LOC: M IRPRO 10:20
PROVIDERS: ATTEND Surgery Vascular Surgery
DX: N18.9 Chronic kidney disease, unspecified (principal)
CPT/HCPCS: 36561; 80048; 85027; 85610; 85730; 86850; 86900; 86901; 99152; 99153; C1750; C1769; C1894; J0690; J2250; J3010

== ENCOUNTER → 2023-02-21 | Outpatient (REF) | payer MEDICARE, OTHER ==
[~2023-02-21] MED LIST changes: -HEPARIN 1,000UNITS/ML 10ML VIAL (FOR RADIOLOGY & DIALYSIS ONLY) As Ordered ONE; -LIDOCAINE W/EPINEPHRINE 1% 20ML VIAL As Ordered ONE; -MIDAZOLAM INJ 2MG/2ML VIAL As Ordered ONE; -ceFAZolin 2 GM/D5W 50 ML IV BAG As Ordered ONE; -ceFAZolin SOD 2 GM in IV 1 EA IV ONE; -fentaNYL 100 MCG/2 ML INJECTION As Ordered ONE
[2023-02-21 20:53] LABS: HEPATITIS B SURFACE ANTIBODY POSITIVE (POSITIVE)
[2023-02-21 21:05] LABS: HEPATITIS B SURFACE ANTIGEN NEGATIVE (NEGATIVE)
[2023-02-21 21:25] LABS: HEPATITIS C VIRUS ABY INDEX 0.08 INDEX (<0.8)
[2023-02-21 21:26] LABS: HEPATITIS B CORE ANTIBODY IGM NEGATIVE (NEGATIVE)
== END ==
LOC: M LAB REF 17:27
PROVIDERS: ATTEND Internal Medicine Nephrology
DX: N18.6 End stage renal disease (principal)

== ENCOUNTER → 2023-02-22 | Outpatient (CLI) | payer MEDICARE, OTHER | LOC: M RAD 13:02 | PROVIDERS: ATTEND Surgery Vascular Surgery | DX: I65.23 Occlusion and stenosis of bilateral carotid arteries (principal) ==

== ENCOUNTER → 2023-03-10 | Outpatient (REF) | payer MEDICARE, OTHER | LOC: M LAB REF 16:56 | PROVIDERS: ATTEND Internal Medicine Nephrology | DX: N18.9 Chronic kidney disease, unspecified (principal); D63.1 Anemia in chronic kidney disease; N39.0 Urinary tract infection, site not specified ==

== ENCOUNTER 2023-03-15 20:39 | Emergency (ER) | payer MEDICARE, OTHER ==
[2023-03-15 21:17] LABS: BASO % 0.3 % (0.0-1.0); EOS # 0.1 10^3/uL (0.0-0.5); EOS % 0.9 % (0.0-3.0); HEMATOCRIT 25.6 % (36.0-47.0); HEMOGLOBIN 7.9 g/dl (12.0-15.5); LYMPH # 1.3 10^3/uL (1.5-5.0); LYMPH % 18.3 % (24.0-44.0); MEAN CORPUSCULAR HEMOGLOBIN 31.6 pg (27.0-33.0); MEAN CORPUSCULAR HGB CONC 30.9 g/dl (32.0-36.5); MEAN CORPUSCULAR VOLUME 102.4 fl (80.0-96.0); MONO # 0.8 10^3/uL (0.0-0.8); MONO % 11.1 % (2.0-8.0); NEUTROPHILS # 4.8 10^3/uL (1.5-8.5); NEUTROPHILS % 68.8 % (36.0-66.0); PLATELET COUNT, AUTOMATED 267 10^3/uL (150-450); WHITE BLOOD COUNT 6.9 10^3/uL (4.0-10.0)
[2023-03-15 21:32] LABS: INR 1.16
[2023-03-15 21:33] LABS: PARTIAL THROMBOPLASTIN TIME 27.8 SECONDS (24.8-34.2)
[2023-03-15 21:40] LABS: LIPASE 39 U/L (12-53)
[2023-03-15 21:42] LABS: ALBUMIN 3.1 G/DL (3.2-5.2); ALKALINE PHOSPHATASE 100 U/L (46-116); ALT/SGPT < 9 U/L (7.0-40); AST/SGOT 9 U/L (<34); BILIRUBIN,DIRECT 0.2 MG/DL (<0.4); BILIRUBIN,TOTAL 0.6 MG/DL (0.3-1.2); BLOOD UREA NITROGEN 20 MG/DL (9-23); CALCIUM LEVEL 8.6 MG/DL (8.3-10.6); CARBON DIOXIDE LEVEL 29 MMOL/L (20-31); CHLORIDE LEVEL 103 MMOL/L (98-107); CREATININE FOR GFR 2.45 MG/DL (0.55-1.30); GLOMERULAR FILTRATION RATE 20.3 (>39); GLUCOSE, FASTING 105 MG/DL (74-106); POTASSIUM SERUM 3.3 MMOL/L (3.5-5.1); SODIUM LEVEL 141 MMOL/L (136-145)
[2023-03-15 21:45] VITALS: BP 131/61; TEMP 98; O2SAT 100
[2023-03-15 22:12] LABS: RSV AMPLIFICATION NEGATIVE (NEGATIVE)
== END 2023-03-16 00:07 | disposition home or self-care (01) ==
LOC: M ED 20:39
DX: N93.9 Abnormal uterine and vaginal bleeding, unspecified (principal); D63.1 Anemia in chronic kidney disease; I12.9 Hypertensive chronic kidney disease with stage 1 through stage 4 chronic kidney disease, or unspecified chronic kidney disease; N18.6 End stage renal disease; E11.9 Type 2 diabetes mellitus without complications; E78.5 Hyperlipidemia, unspecified; Z79.899 Other long term (current) drug therapy; Z79.82 Long term (current) use of aspirin

== ENCOUNTER 2023-05-23 10:57 | Emergency (ER) | payer MEDICARE, OTHER ==
[~2023-05-23] VITALS: Ht 160 cm; Wt 68.7 kg
[2023-05-23] MEDS ORDERED: VITA100065 PO (13:09)
[2023-05-23] MEDS ORDERED: VITA500C24 PO (13:09)
[2023-05-23] MEDS ORDERED: ELIQ2.5T PO (13:09)
[2023-05-23] MEDS ORDERED: FERR324T12 PO (13:09)
[2023-05-23] MEDS ORDERED: DONE-1 PO (13:09)
[2023-05-23] MEDS ORDERED: MYRB50TA PO (13:09)
[2023-05-23] MEDS ORDERED: CALC1CAP PO (13:09)
[2023-05-23 13:24] LABS: BASO % 0.2 % (0.0-1.0); EOS % 0.1 % (0.0-3.0); HEMATOCRIT 32.2 % (36.0-47.0); HEMOGLOBIN 10.5 g/dl (12.0-15.5); LYMPH # 1.4 10^3/uL (1.5-5.0); LYMPH % 14.6 % (24.0-44.0); MEAN CORPUSCULAR HEMOGLOBIN 32.7 pg (27.0-33.0); MEAN CORPUSCULAR HGB CONC 32.6 g/dl (32.0-36.5); MEAN CORPUSCULAR VOLUME 100.3 fl (80.0-96.0); MONO # 0.9 10^3/uL (0.0-0.8); MONO % 9.4 % (2.0-8.0); NEUTROPHILS # 7.3 10^3/uL (1.5-8.5); NEUTROPHILS % 75.3 % (36.0-66.0); PLATELET COUNT, AUTOMATED 252 10^3/uL (150-450); RED BLOOD COUNT 3.21 10^6/uL (4.00-5.40); WHITE BLOOD COUNT 9.7 10^3/uL (4.0-10.0)
[2023-05-23 13:59] LABS: FREE T4 0.96 NG/DL (0.89-1.76); THYROID STIMULATING HORMONE 1.681 uIU/ML (0.55-4.78)
[2023-05-23] MEDS ORDERED: NORCO, ANEXSIA 5/325MG TABLET (HYDROcodone/ACETAMINOPHEN) PO ONE (14:05)
[2023-05-23 14:24] LABS: CALCIUM LEVEL 8.4 MG/DL (8.3-10.6); CREATININE FOR GFR 4.58 MG/DL (0.55-1.30); GLOMERULAR FILTRATION RATE 9.9 (>39); POTASSIUM SERUM 3.8 MMOL/L (3.5-5.1)
[2023-05-23 15:49] VITALS: BP 133/63; TEMP 99.6; O2SAT 97
[2023-05-23 16:30] LABS: MAGNESIUM LEVEL 2.2 MG/DL (1.8-2.4)
== END 2023-05-23 15:52 | disposition short-term general hospital (02) ==
LOC: EDBD 10:57 → M ED 10:57
DX: S82.61XA Displaced fracture of lateral malleolus of right fibula, initial encounter for closed fracture (principal); S82.51XA Displaced fracture of medial malleolus of right tibia, initial encounter for closed fracture; S12.9XXA Fracture of neck, unspecified, initial encounter; M43.12 Spondylolisthesis, cervical region; R90.82 White matter disease, unspecified; Z96.651 Presence of right artificial knee joint; M17.12 Unilateral primary osteoarthritis, left knee; W19.XXXA Unspecified fall, initial encounter; Y92.009 Unspecified place in unspecified non-institutional (private) residence as the place of occurrence of the external cause; I10 Essential (primary) hypertension; E11.9 Type 2 diabetes mellitus without complications; I51.9 Heart disease, unspecified; D64.9 Anemia, unspecified; N18.4 Chronic kidney disease, stage 4 (severe); Z98.84 Bariatric surgery status; Z99.2 Dependence on renal dialysis; Z79.82 Long term (current) use of aspirin; Z79.899 Other long term (current) drug therapy

== ENCOUNTER 2023-06-09 12:24 | Inpatient (IN) | payer MEDICARE, OTHER ==
[~2023-06-09] VITALS: Ht 160 cm; Wt 64.4 kg
[~2023-06-09 12:24] MED LIST changes: +CALC1CAP PO; +DONE-1 PO; +ELIQ2.5T PO; +FERR324T12 PO; +VITA100065 PO; +VITA500C24 PO
[2023-06-09] MEDS ORDERED: FERR325T19 (13:36)
[2023-06-09] MEDS ORDERED: ARIC1TAB PO (13:39)
[2023-06-09 13:57] LABS: BASO % 0.2 % (0.0-1.0); EOS % 0.3 % (0.0-3.0); HEMATOCRIT 35.5 % (36.0-47.0); HEMOGLOBIN 11.6 g/dl (12.0-15.5); LYMPH # 1.5 10^3/uL (1.5-5.0); LYMPH % 11.3 % (24.0-44.0); MEAN CORPUSCULAR HEMOGLOBIN 33.4 pg (27.0-33.0); MEAN CORPUSCULAR HGB CONC 32.7 g/dl (32.0-36.5); MEAN CORPUSCULAR VOLUME 102.3 fl (80.0-96.0); MONO # 0.8 10^3/uL (0.0-0.8); MONO % 6.2 % (2.0-8.0); NEUTROPHILS # 10.6 10^3/uL (1.5-8.5); NEUTROPHILS % 80.9 % (36.0-66.0); PLATELET COUNT, AUTOMATED 254 10^3/uL (150-450); RED BLOOD COUNT 3.47 10^6/uL (4.00-5.40); WHITE BLOOD COUNT 13.1 10^3/uL (4.0-10.0)
[2023-06-09 14:16] LABS: INR 1.18; PROTHROMBIN TIME 14.7 SECONDS (12.5-14.5)
[2023-06-09 14:17] LABS: PARTIAL THROMBOPLASTIN TIME 31.7 SECONDS (24.8-34.2)
[2023-06-09 14:30] LABS: ALBUMIN 2.9 G/DL (3.2-5.2); BILIRUBIN,DIRECT 0.3 MG/DL (<0.4); BILIRUBIN,TOTAL 0.8 MG/DL (0.3-1.2); CALCIUM LEVEL 9.1 MG/DL (8.3-10.6); CREATININE FOR GFR 2.17 MG/DL (0.55-1.30); GLOMERULAR FILTRATION RATE 23.3 (>39); TOTAL PROTEIN 7.1 G/DL (5.7-8.2)
[2023-06-09 17:47] LABS: RSV AMPLIFICATION NEGATIVE (NEGATIVE)
[2023-06-09] MEDS ORDERED: SENN-186 PO (18:44)
[2023-06-09] MEDS ORDERED: ACET-907 PO (18:44)
[2023-06-09] MEDS ORDERED: ACET-683 PO (18:44)
[2023-06-09] MEDS ORDERED: HOME MED LIST COMPLETE! XX SCH (18:50)
[2023-06-09] MEDS ORDERED: CARVedilol 6.25 MG TAB PO SCH (21:00)
[2023-06-09] MEDS ORDERED: CALCIUM ACETATE 667MG GELCAP PO SCH (21:00)
[2023-06-10 07:54] LABS: CALCIUM LEVEL 7.9 MG/DL (8.3-10.6); CREATININE FOR GFR 3.68 MG/DL (0.55-1.30); GLOMERULAR FILTRATION RATE 12.7 (>39); POTASSIUM SERUM 3.1 MMOL/L (3.5-5.1)
[2023-06-10] MEDS: CARVedilol 3.125 MG TAB PO SCH ×2 (09:00→19:37)
[2023-06-10] MEDS: CALCIUM ACETATE 667MG GELCAP PO SCH ×3 (09:24→18:27)
[2023-06-10 09:57] LABS: BASO % 0.4 % (0.0-1.0); EOS # 0.1 10^3/uL (0.0-0.5); EOS % 0.9 % (0.0-3.0); HEMATOCRIT 29.1 % (36.0-47.0); LYMPH # 1.4 10^3/uL (1.5-5.0); LYMPH % 14.5 % (24.0-44.0); MEAN CORPUSCULAR HEMOGLOBIN 34.4 pg (27.0-33.0); MEAN CORPUSCULAR VOLUME 104.3 fl (80.0-96.0); MONO % 11.1 % (2.0-8.0); NEUTROPHILS # 6.6 10^3/uL (1.5-8.5); NEUTROPHILS % 71.5 % (36.0-66.0); PLATELET COUNT, AUTOMATED 232 10^3/uL (150-450); RED BLOOD COUNT 2.79 10^6/uL (4.00-5.40); WHITE BLOOD COUNT 9.3 10^3/uL (4.0-10.0)
[2023-06-10 09:58] LABS: HEMOGLOBIN 9.6 g/dl (12.0-15.5)
[2023-06-10] MEDS ORDERED: POTASSIUM CHLORIDE 10MEQ SR TABLET PO ONE (10:00)
[2023-06-10 12:00] VITALS: BP_SYST 106; BP_SYST 126; BP_DIAS 54; BP_DIAS 58; TEMP 96.9; O2SAT 96
[2023-06-10 12:08] VITALS: BP 91/51
[2023-06-10] MEDS: SITagliptin 50 MG TAB (JANUVIA) PO SCH (12:56)
[2023-06-10 16:55] VITALS: BP 126/60; TEMP 98.2; O2SAT 97
[2023-06-10] MEDS: DONEPEZIL 5 MG TAB PO SCH (18:27)
[2023-06-10 19:31] VITALS: BP 100/48; TEMP 97; O2SAT 98
[2023-06-10] MEDS: SIMVASTATIN 10 MG TAB PO SCH (20:07)
[2023-06-10 23:11] VITALS: BP 117/58; TEMP 97.2; O2SAT 100
[2023-06-11] VITALS (7 sets, daily range): BP systolic 85–141; BP diastolic 48–84; TEMP 97.2–98.2; O2SAT 99–100
[2023-06-11 05:00] LABS: BASO % 0.4 % (0.0-1.0); EOS # 0.2 10^3/uL (0.0-0.5); EOS % 2.2 % (0.0-3.0); HEMATOCRIT 28.5 % (36.0-47.0); HEMOGLOBIN 9.3 g/dl (12.0-15.5); LYMPH # 1.3 10^3/uL (1.5-5.0); LYMPH % 16.5 % (24.0-44.0); MEAN CORPUSCULAR HEMOGLOBIN 34.1 pg (27.0-33.0); MEAN CORPUSCULAR HGB CONC 32.6 g/dl (32.0-36.5); MEAN CORPUSCULAR VOLUME 104.4 fl (80.0-96.0); MONO # 0.9 10^3/uL (0.0-0.8); MONO % 11.1 % (2.0-8.0); NEUTROPHILS # 5.4 10^3/uL (1.5-8.5); NEUTROPHILS % 68.9 % (36.0-66.0); PLATELET COUNT, AUTOMATED 213 10^3/uL (150-450); RED BLOOD COUNT 2.73 10^6/uL (4.00-5.40); WHITE BLOOD COUNT 7.8 10^3/uL (4.0-10.0)
[2023-06-11 05:33] LABS: CREATININE FOR GFR 4.93 MG/DL (0.55-1.30); GLOMERULAR FILTRATION RATE 9.1 (>39); POTASSIUM SERUM 3.3 MMOL/L (3.5-5.1)
[2023-06-11] MEDS ORDERED: POTASSIUM CHLORIDE 10MEQ SR TABLET PO ONE (07:40)
[2023-06-11] MEDS: CALCIUM ACETATE 667MG GELCAP PO SCH ×3 (08:48→18:15)
[2023-06-11] MEDS: APIXABAN 2.5 MG TAB (ELIQUIS) PO SCH ×2 (08:48→20:13)
[2023-06-11] MEDS: CARVedilol 3.125 MG TAB PO SCH ×2 (08:48→19:50)
[2023-06-11] MEDS ORDERED: FERROUS GLUCONATE 324 MG TAB PO SCH (09:00)
[2023-06-11] MEDS: SITagliptin 50 MG TAB (JANUVIA) PO SCH (13:12)
[2023-06-11] MEDS: ASCORBIC ACID 500 MG TAB PO SCH (13:12)
[2023-06-11] MEDS: FLUDROCORTISONE ACETATE 0.1 MG TAB PO SCH (16:18)
[2023-06-11] MEDS: DONEPEZIL 5 MG TAB PO SCH (18:15)
[2023-06-11] MEDS: SIMVASTATIN 10 MG TAB PO SCH (20:13)
[2023-06-12 03:35] VITALS: BP 110/55; TEMP 97.5; O2SAT 100
[2023-06-12] MEDS ORDERED: SODIUM CHLORIDE 0.9% 1000ML IV PRN (06:20)
[2023-06-12] MEDS ORDERED: HEPARIN 1,000UNITS/ML 10ML VIAL (FOR RADIOLOGY & DIALYSIS ONLY) IV PRN (06:20)
[2023-06-12 06:44] LABS: BASO % 0.4 % (0.0-1.0); EOS # 0.2 10^3/uL (0.0-0.5); EOS % 2.5 % (0.0-3.0); HEMOGLOBIN 8.8 g/dl (12.0-15.5); LYMPH # 1.4 10^3/uL (1.5-5.0); LYMPH % 19.9 % (24.0-44.0); MEAN CORPUSCULAR HEMOGLOBIN 33.3 pg (27.0-33.0); MEAN CORPUSCULAR HGB CONC 32.6 g/dl (32.0-36.5); MEAN CORPUSCULAR VOLUME 102.3 fl (80.0-96.0); MONO # 0.8 10^3/uL (0.0-0.8); MONO % 10.7 % (2.0-8.0); NEUTROPHILS # 4.7 10^3/uL (1.5-8.5); NEUTROPHILS % 65.5 % (36.0-66.0); PLATELET COUNT, AUTOMATED 246 10^3/uL (150-450); RED BLOOD COUNT 2.64 10^6/uL (4.00-5.40); WHITE BLOOD COUNT 7.2 10^3/uL (4.0-10.0)
[2023-06-12] MEDS ORDERED: ERTAPENEM SODIUM 1 GM in NS MINI-BAG PLUS 50 ML IV SCH (07:00)
[2023-06-12 07:15] LABS: CALCIUM LEVEL 7.9 MG/DL (8.3-10.6); CREATININE FOR GFR 6.1 MG/DL (0.55-1.30); GLOMERULAR FILTRATION RATE 7.1 (>39); POTASSIUM SERUM 4.1 MMOL/L (3.5-5.1)
[2023-06-12 07:55] VITALS: BP 112/56; TEMP 97.1; O2SAT 100
[2023-06-12] MEDS ORDERED: cefTRIAXone SOD 1 GM in D5W MINI-BAG PLUS 50 ML IV SCH (08:00)
[2023-06-12] MEDS: CALCIUM ACETATE 667MG GELCAP PO SCH ×3 (08:00→17:54)
[2023-06-12 08:31] LABS: C REACTIVE PROTEIN QUANTITATIV 0.6 MG/DL (<1.0)
[2023-06-12 08:44] LABS: PROCALCITONIN 0.22 ng/ml
[2023-06-12 12:00] VITALS: BP 124/60; TEMP 96.6; O2SAT 100
[2023-06-12] MEDS: APIXABAN 2.5 MG TAB (ELIQUIS) PO SCH ×2 (12:14→21:06)
[2023-06-12] MEDS: CARVedilol 3.125 MG TAB PO SCH ×2 (12:15→21:00)
[2023-06-12] MEDS: SITagliptin 50 MG TAB (JANUVIA) PO SCH (12:15)
[2023-06-12] MEDS: FLUDROCORTISONE ACETATE 0.1 MG TAB PO SCH (12:15)
[2023-06-12] MEDS: ASCORBIC ACID 500 MG TAB PO SCH (12:15)
[2023-06-12 15:49] VITALS: BP 127/55; TEMP 96.7; O2SAT 100
[2023-06-12] MEDS ORDERED: ERTAPENEM SODIUM 500 MG in NS 50 ML IV SCH (16:00)
[2023-06-12] MEDS: DONEPEZIL 5 MG TAB PO SCH (17:53)
[2023-06-12] MEDS ORDERED: BACTRIM 160MG/800MG DS TAB PO SCH (18:00)
[2023-06-12 19:30] VITALS: BP 97/41; TEMP 97.7; O2SAT 95
[2023-06-12] MEDS: SIMVASTATIN 10 MG TAB PO SCH (21:06)
[2023-06-13 06:00] VITALS: BP 116/52; TEMP 97.3; O2SAT 99
[2023-06-13 06:19] LABS: BASO % 0.2 % (0.0-1.0); EOS # 0.1 10^3/uL (0.0-0.5); EOS % 1.2 % (0.0-3.0); HEMATOCRIT 29.1 % (36.0-47.0); HEMOGLOBIN 9.3 g/dl (12.0-15.5); LYMPH # 1.4 10^3/uL (1.5-5.0); LYMPH % 16.7 % (24.0-44.0); MEAN CORPUSCULAR HEMOGLOBIN 33.5 pg (27.0-33.0); MEAN CORPUSCULAR VOLUME 104.7 fl (80.0-96.0); MONO % 12.1 % (2.0-8.0); NEUTROPHILS # 5.7 10^3/uL (1.5-8.5); NEUTROPHILS % 68.8 % (36.0-66.0); PLATELET COUNT, AUTOMATED 223 10^3/uL (150-450); RED BLOOD COUNT 2.78 10^6/uL (4.00-5.40); WHITE BLOOD COUNT 8.3 10^3/uL (4.0-10.0)
[2023-06-13 06:46] LABS: CALCIUM LEVEL 7.7 MG/DL (8.3-10.6); CREATININE FOR GFR 3.83 MG/DL (0.55-1.30); GLOMERULAR FILTRATION RATE 12.1 (>39); POTASSIUM SERUM 4.1 MMOL/L (3.5-5.1)
[2023-06-13 08:30] VITALS: BP_SYST 108; BP_SYST 59; BP_SYST 97; BP_DIAS 33; BP_DIAS 44; BP_DIAS 45
[2023-06-13 08:50] VITALS: BP 108/44
[2023-06-13] MEDS: CARVedilol 3.125 MG TAB PO SCH (08:50)
[2023-06-13] MEDS: CALCIUM ACETATE 667MG GELCAP PO SCH ×2 (08:58→12:28)
[2023-06-13] MEDS: FLUDROCORTISONE ACETATE 0.1 MG TAB PO SCH (08:58)
[2023-06-13] MEDS: APIXABAN 2.5 MG TAB (ELIQUIS) PO SCH (08:58)
[2023-06-13] MEDS ORDERED: FLUD0.1T PO (10:15)
[2023-06-13] MEDS ORDERED: BACTDSTA PO (10:15)
[2023-06-13] MEDS ORDERED: CORE3.12 PO (10:16)
[2023-06-13] MEDS ORDERED: MIDODRINE 2.5 MG TAB PO SCH (12:00)
[2023-06-13] MEDS: SITagliptin 50 MG TAB (JANUVIA) PO SCH (12:29)
[2023-06-13] MEDS: ASCORBIC ACID 500 MG TAB PO SCH (12:29)
== END 2023-06-13 12:48 | DRG 760 ==
LOC: M ED 12:24 → M ED INP 18:51 → ENRESERV 06-10 10:46 → M PCU 06-10 11:46 → M MSPAV 06-12 19:10
PROVIDERS: ADMIT Internal Medicine Nephrology; ATTEND Internal Medicine Nephrology
PROC: B246ZZZ Ultrasonography of Right and Left Heart (ICD-10-PCS; principal; 2023-06-10)
PROC: 5A1D70Z Performance of Urinary Filtration, Intermittent, Less than 6 Hours Per Day (ICD-10-PCS; 2023-06-12)
DX: N95.0 Postmenopausal bleeding (principal); N18.6 End stage renal disease; I42.0 Dilated cardiomyopathy; I13.2 Hypertensive heart and chronic kidney disease with heart failure and with stage 5 chronic kidney disease, or end stage renal disease; I50.22 Chronic systolic (congestive) heart failure; N34.0 Urethral abscess; I47.20 Ventricular tachycardia, unspecified; N30.90 Cystitis, unspecified without hematuria; F03.90 Unspecified dementia, unspecified severity, without behavioral disturbance, psychotic disturbance, mood disturbance, and anxiety; E11.22 Type 2 diabetes mellitus with diabetic chronic kidney disease; R29.6 Repeated falls; Z66 Do not resuscitate; D64.9 Anemia, unspecified; M81.0 Age-related osteoporosis without current pathological fracture; N95.2 Postmenopausal atrophic vaginitis; N84.0 Polyp of corpus uteri; B96.1 Klebsiella pneumoniae [K. pneumoniae] as the cause of diseases classified elsewhere; I95.1 Orthostatic hypotension; E78.5 Hyperlipidemia, unspecified; E87.6 Hypokalemia; K57.90 Diverticulosis of intestine, part unspecified, without perforation or abscess without bleeding; Z87.820 Personal history of traumatic brain injury; Z98.84 Bariatric surgery status; Z96.642 Presence of left artificial hip joint; Z98.1 Arthrodesis status; Z96.651 Presence of right artificial knee joint; Z99.2 Dependence on renal dialysis; Z79.01 Long term (current) use of anticoagulants; Z79.899 Other long term (current) drug therapy

== ENCOUNTER → 2023-06-20 | Outpatient (REF) ==
[~2023-06-20] MED LIST changes: +ACET-683 PO; +ACET-907 PO; +ARIC1TAB PO; +BACTDSTA PO; +CORE3.12 PO; +FERR325T19; +FLUD0.1T PO; +SENN-186 PO
[2023-06-20 18:08] LABS: HEMATOCRIT 32.4 % (36.0-47.0); HEMOGLOBIN 10.3 g/dl (12.0-15.5); MEAN CORPUSCULAR HEMOGLOBIN 33.3 pg (27.0-33.0); MEAN CORPUSCULAR HGB CONC 31.8 g/dl (32.0-36.5); MEAN CORPUSCULAR VOLUME 104.9 fl (80.0-96.0); PLATELET COUNT, AUTOMATED 278 10^3/uL (150-450); RED BLOOD COUNT 3.09 10^6/uL (4.00-5.40); WHITE BLOOD COUNT 7.6 10^3/uL (4.0-10.0)
== END ==
PROVIDERS: ATTEND Physician Assistant
DX: N93.9 Abnormal uterine and vaginal bleeding, unspecified (principal)

== ENCOUNTER 2023-07-11 12:01 | Observation (INO) | payer MEDICARE, OTHER ==
[~2023-07-11] VITALS: Ht 162.6 cm; Wt 64.1 kg
[2023-07-11 13:15] LABS: HEMATOCRIT 36.2 % (36.0-47.0); HEMOGLOBIN 11.7 g/dl (12.0-15.5); MEAN CORPUSCULAR HEMOGLOBIN 33.2 pg (27.0-33.0); MEAN CORPUSCULAR HGB CONC 32.3 g/dl (32.0-36.5); MEAN CORPUSCULAR VOLUME 102.8 fl (80.0-96.0); PLATELET COUNT, AUTOMATED 327 10^3/uL (150-450); RED BLOOD COUNT 3.52 10^6/uL (4.00-5.40); WHITE BLOOD COUNT 7.9 10^3/uL (4.0-10.0)
[2023-07-11 13:33] LABS: CALCIUM LEVEL 8.6 MG/DL (8.3-10.6); CREATININE FOR GFR 4.19 MG/DL (0.55-1.30); GLOMERULAR FILTRATION RATE 10.9 (>39); POTASSIUM SERUM 3.7 MMOL/L (3.5-5.1)
[2023-07-11] MEDS ORDERED: MED REC IN PROGRESS XX SCH (14:20)
[2023-07-11] MEDS ORDERED: MIDO5TA PO ×2 (15:06)
[2023-07-11] MEDS ORDERED: FERR325T19 PO (15:06)
[2023-07-11] MEDS ORDERED: SENN1TAB41 PO (15:06)
[2023-07-11] MEDS ORDERED: FLEEENE12 PR (15:06)
[2023-07-11] MEDS ORDERED: DARB100SYR SC (15:06)
[2023-07-11] MEDS ORDERED: DULC10SU2 PR (15:06)
[2023-07-11] MEDS ORDERED: NYST1POW9 TOP (15:06)
[2023-07-11] MEDS ORDERED: HOME MED LIST COMPLETE! XX SCH (15:10)
[2023-07-11 18:00] VITALS: BP 113/56; TEMP 97; O2SAT 98
[2023-07-11] MEDS ORDERED: PILL CUTTER 1 EACH XX PRN (19:45)
[2023-07-11 20:00] VITALS: BP 111/55; TEMP 97.1; O2SAT 98
[2023-07-11 20:20] LABS: BASO % 0.1 % (0.0-1.0); EOS % 0.1 % (0.0-3.0); HEMATOCRIT 32.4 % (36.0-47.0); HEMOGLOBIN 10.4 g/dl (12.0-15.5); LYMPH # 1.6 10^3/uL (1.5-5.0); MEAN CORPUSCULAR HEMOGLOBIN 32.8 pg (27.0-33.0); MEAN CORPUSCULAR HGB CONC 32.1 g/dl (32.0-36.5); MEAN CORPUSCULAR VOLUME 102.2 fl (80.0-96.0); MONO # 0.8 10^3/uL (0.0-0.8); MONO % 9.2 % (2.0-8.0); NEUTROPHILS # 6.7 10^3/uL (1.5-8.5); NEUTROPHILS % 72.6 % (36.0-66.0); PLATELET COUNT, AUTOMATED 293 10^3/uL (150-450); RED BLOOD COUNT 3.17 10^6/uL (4.00-5.40); WHITE BLOOD COUNT 9.2 10^3/uL (4.0-10.0)
[2023-07-11] MEDS: FERROUS SULFATE 325MG TAB PO SCH (20:27)
[2023-07-11] MEDS: ACETAMINOPHEN 500 MG TAB PO SCH (20:27)
[2023-07-11] MEDS: SIMVASTATIN 10 MG TAB PO SCH (20:27)
[2023-07-11] MEDS: SENOKOT S TAB PO SCH (20:27)
[2023-07-11] MEDS: FLUDROCORTISONE ACETATE 0.1 MG TAB PO SCH (20:28)
[2023-07-11 20:36] VITALS: BP_SYST 105; BP_SYST 111; BP_SYST 96; BP_DIAS 53; BP_DIAS 54; BP_DIAS 55
[2023-07-12 04:48] VITALS: BP 101/50; TEMP 96.5; O2SAT 100
[2023-07-12 05:44] LABS: BASO % 0.3 % (0.0-1.0); EOS # 0.1 10^3/uL (0.0-0.5); EOS % 0.7 % (0.0-3.0); HEMATOCRIT 28.8 % (36.0-47.0); HEMOGLOBIN 9.5 g/dl (12.0-15.5); LYMPH # 1.6 10^3/uL (1.5-5.0); LYMPH % 21.7 % (24.0-44.0); MEAN CORPUSCULAR HEMOGLOBIN 33.3 pg (27.0-33.0); MEAN CORPUSCULAR VOLUME 101.1 fl (80.0-96.0); MONO # 0.8 10^3/uL (0.0-0.8); MONO % 10.9 % (2.0-8.0); NEUTROPHILS # 4.7 10^3/uL (1.5-8.5); NEUTROPHILS % 64.5 % (36.0-66.0); PLATELET COUNT, AUTOMATED 296 10^3/uL (150-450); RED BLOOD COUNT 2.85 10^6/uL (4.00-5.40); WHITE BLOOD COUNT 7.3 10^3/uL (4.0-10.0)
[2023-07-12 05:51] LABS: CALCIUM LEVEL 7.9 MG/DL (8.3-10.6); CREATININE FOR GFR 5.24 MG/DL (0.55-1.30); GLOMERULAR FILTRATION RATE 8.4 (>39); POTASSIUM SERUM 3.3 MMOL/L (3.5-5.1)
[2023-07-12] MEDS: FERROUS SULFATE 325MG TAB PO SCH (06:47)
[2023-07-12] MEDS: CALCIUM ACETATE 667MG GELCAP PO SCH ×3 (06:49→18:06)
[2023-07-12 07:37] VITALS: BP 121/60; TEMP 96.7; O2SAT 99
[2023-07-12 08:00] VITALS: TEMP 97.7; O2SAT 96
[2023-07-12] MEDS ORDERED: MIDODRINE 5 MG TAB PO SCH ×3 (08:00→16:00)
[2023-07-12 08:03] VITALS: BP_SYST 116; BP_SYST 92; BP_SYST 96; BP_DIAS 51; BP_DIAS 52; BP_DIAS 58
[2023-07-12] MEDS: ACETAMINOPHEN 500 MG TAB PO SCH ×2 (09:00→22:02)
[2023-07-12] MEDS ORDERED: POTASSIUM CHLORIDE 10MEQ SR TABLET PO ONE (10:15)
[2023-07-12] MEDS ORDERED: HEPARIN 1,000UNITS/ML 10ML VIAL (FOR RADIOLOGY & DIALYSIS ONLY) XX SCH (10:15)
[2023-07-12] MEDS ORDERED: SODIUM CHLORIDE 0.9% 1000ML IV PRN (10:15)
[2023-07-12] MEDS ORDERED: HEPARIN 1,000UNITS/ML 10ML VIAL (FOR RADIOLOGY & DIALYSIS ONLY) IV PRN (10:15)
[2023-07-12] MEDS: ASPIRIN 81MG CHEW TABLET PO SCH (12:23)
[2023-07-12] MEDS: ASCORBIC ACID 500 MG TAB PO SCH (12:24)
[2023-07-12] MEDS: MIDODRINE 5 MG TAB PO SCH ×2 (12:24→16:00)
[2023-07-12] MEDS: SITagliptin 50 MG TAB (JANUVIA) PO SCH (12:24)
[2023-07-12] MEDS ORDERED: PREVNAR-20 VACCINE 0.5ML SYRINGE IM.IMMUN ONE ×2 (16:00→20:00)
[2023-07-12 17:48] VITALS: BP 119/58; TEMP 97.3; O2SAT 100
[2023-07-12] MEDS: SENOKOT S TAB PO SCH (18:06)
[2023-07-12] MEDS: SIMVASTATIN 10 MG TAB PO SCH (18:06)
[2023-07-12 21:57] VITALS: BP 110/56; TEMP 97.7; O2SAT 99
[2023-07-12] MEDS: FLUDROCORTISONE ACETATE 0.1 MG TAB PO SCH (22:01)
[2023-07-12] MEDS: NYSTATIN 100,000 UNITS/GM TOPICAL PWD 15GM TOP SCH (22:01)
[2023-07-13 03:02] VITALS: BP 98/40; TEMP 97.7; O2SAT 99
[2023-07-13 04:45] VITALS: BP 102/40
[2023-07-13 05:14] LABS: BASO % 0.2 % (0.0-1.0); EOS # 0.1 10^3/uL (0.0-0.5); EOS % 0.8 % (0.0-3.0); HEMATOCRIT 28.5 % (36.0-47.0); HEMOGLOBIN 9.2 g/dl (12.0-15.5); LYMPH # 1.1 10^3/uL (1.5-5.0); LYMPH % 17.3 % (24.0-44.0); MEAN CORPUSCULAR HEMOGLOBIN 33.2 pg (27.0-33.0); MEAN CORPUSCULAR HGB CONC 32.3 g/dl (32.0-36.5); MEAN CORPUSCULAR VOLUME 102.9 fl (80.0-96.0); MONO # 0.7 10^3/uL (0.0-0.8); NEUTROPHILS # 4.5 10^3/uL (1.5-8.5); NEUTROPHILS % 69.3 % (36.0-66.0); PLATELET COUNT, AUTOMATED 235 10^3/uL (150-450); RED BLOOD COUNT 2.77 10^6/uL (4.00-5.40); WHITE BLOOD COUNT 6.5 10^3/uL (4.0-10.0)
[2023-07-13 05:38] LABS: CALCIUM LEVEL 8.1 MG/DL (8.3-10.6); CREATININE FOR GFR 3.26 MG/DL (0.55-1.30); GLOMERULAR FILTRATION RATE 14.6 (>39); POTASSIUM SERUM 3.9 MMOL/L (3.5-5.1)
[2023-07-13 07:48] LABS: C REACTIVE PROTEIN QUANTITATIV 1.7 MG/DL (<1.0)
[2023-07-13 07:57] LABS: PROCALCITONIN 0.38 ng/ml
[2023-07-13 08:00] VITALS: BP 105/55; TEMP 97.9; O2SAT 99
[2023-07-13] MEDS: ASPIRIN 81MG CHEW TABLET PO SCH (08:45)
[2023-07-13] MEDS: MIDODRINE 5 MG TAB PO SCH ×3 (08:45→16:38)
[2023-07-13] MEDS: CALCIUM ACETATE 667MG GELCAP PO SCH ×3 (08:45→16:38)
[2023-07-13] MEDS: ACETAMINOPHEN 500 MG TAB PO SCH ×2 (08:46→21:36)
[2023-07-13] MEDS ORDERED: NS IV SCH (09:00)
[2023-07-13] MEDS: NYSTATIN 100,000 UNITS/GM TOPICAL PWD 15GM TOP SCH ×2 (09:00→21:36)
[2023-07-13] MEDS ORDERED: ERTAPENEM SODIUM IV SCH (09:00)
[2023-07-13] MEDS ORDERED: MIDO5TA PO (10:54)
[2023-07-13] MEDS ORDERED: ASPI81CH8 PO (10:54)
[2023-07-13] MEDS: ERTAPENEM SODIUM 500 MG in NS 50 ML IV SCH (11:57)
[2023-07-13 12:00] VITALS: BP 101/54; TEMP 97.6; O2SAT 98
[2023-07-13] MEDS ORDERED: MIDODRINE 5 MG TAB PO SCH (12:00)
[2023-07-13] MEDS: ASCORBIC ACID 500 MG TAB PO SCH (12:17)
[2023-07-13] MEDS: SITagliptin 50 MG TAB (JANUVIA) PO SCH (12:17)
[2023-07-13] MEDS: SIMVASTATIN 10 MG TAB PO SCH (16:38)
[2023-07-13] MEDS: SENOKOT S TAB PO SCH (16:38)
[2023-07-13 19:29] VITALS: BP 108/58; TEMP 97; O2SAT 93
[2023-07-13] MEDS: FLUDROCORTISONE ACETATE 0.1 MG TAB PO SCH (21:36)
[2023-07-14 05:10] VITALS: BP 122/59; TEMP 98.2; O2SAT 100
[2023-07-14] MEDS: ACETAMINOPHEN 500 MG TAB PO SCH (05:12)
[2023-07-14] MEDS: ASPIRIN 81MG CHEW TABLET PO SCH (05:19)
[2023-07-14] MEDS: MIDODRINE 5 MG TAB PO SCH ×2 (05:19→12:03)
[2023-07-14] MEDS: CALCIUM ACETATE 667MG GELCAP PO SCH ×2 (05:19→12:04)
[2023-07-14 05:40] LABS: BASO % 0.3 % (0.0-1.0); EOS # 0.1 10^3/uL (0.0-0.5); EOS % 1.4 % (0.0-3.0); HEMATOCRIT 29.1 % (36.0-47.0); HEMOGLOBIN 9.3 g/dl (12.0-15.5); LYMPH # 1.3 10^3/uL (1.5-5.0); MEAN CORPUSCULAR HEMOGLOBIN 33.6 pg (27.0-33.0); MEAN CORPUSCULAR VOLUME 105.1 fl (80.0-96.0); MONO # 0.6 10^3/uL (0.0-0.8); MONO % 9.5 % (2.0-8.0); NEUTROPHILS # 3.7 10^3/uL (1.5-8.5); NEUTROPHILS % 63.7 % (36.0-66.0); PLATELET COUNT, AUTOMATED 235 10^3/uL (150-450); RED BLOOD COUNT 2.77 10^6/uL (4.00-5.40); WHITE BLOOD COUNT 5.8 10^3/uL (4.0-10.0)
[2023-07-14 06:05] LABS: CALCIUM LEVEL 8.2 MG/DL (8.3-10.6); CREATININE FOR GFR 4.83 MG/DL (0.55-1.30); GLOMERULAR FILTRATION RATE 9.3 (>39); POTASSIUM SERUM 4.1 MMOL/L (3.5-5.1)
[2023-07-14] MEDS ORDERED: HEPARIN 1,000UNITS/ML 10ML VIAL (FOR RADIOLOGY & DIALYSIS ONLY) XX SCH (06:40)
[2023-07-14] MEDS ORDERED: SODIUM CHLORIDE 0.9% 1000ML IV PRN (06:40)
[2023-07-14] MEDS ORDERED: HEPARIN 1,000UNITS/ML 10ML VIAL (FOR RADIOLOGY & DIALYSIS ONLY) IV PRN (06:40)
[2023-07-14 07:43] VITALS: BP 111/56; TEMP 96.8; O2SAT 100
[2023-07-14] MEDS: SITagliptin 50 MG TAB (JANUVIA) PO SCH (12:03)
[2023-07-14] MEDS: ASCORBIC ACID 500 MG TAB PO SCH (12:04)
[2023-07-14] MEDS: NYSTATIN 100,000 UNITS/GM TOPICAL PWD 15GM TOP SCH (12:05)
[2023-07-14] MEDS: ERTAPENEM SODIUM 500 MG in NS 50 ML IV SCH (12:35)
== END 2023-07-14 14:01 ==
LOC: M ED 12:01 → EDBD 12:01 → M ED INP 14:40 → M PCU 17:23
PROVIDERS: ADMIT Internal Medicine Nephrology; ATTEND Internal Medicine Nephrology
DX: I95.1 Orthostatic hypotension (principal); N93.9 Abnormal uterine and vaginal bleeding, unspecified; R31.9 Hematuria, unspecified; N36.2 Urethral caruncle; E87.6 Hypokalemia; E11.9 Type 2 diabetes mellitus without complications; E78.5 Hyperlipidemia, unspecified; N18.6 End stage renal disease; Z99.2 Dependence on renal dialysis; I42.0 Dilated cardiomyopathy; M81.0 Age-related osteoporosis without current pathological fracture; D63.8 Anemia in other chronic diseases classified elsewhere; I50.20 Unspecified systolic (congestive) heart failure; K57.90 Diverticulosis of intestine, part unspecified, without perforation or abscess without bleeding; F03.90 Unspecified dementia, unspecified severity, without behavioral disturbance, psychotic disturbance, mood disturbance, and anxiety; L89.159 Pressure ulcer of sacral region, unspecified stage; L89.619 Pressure ulcer of right heel, unspecified stage; L89.629 Pressure ulcer of left heel, unspecified stage; N95.0 Postmenopausal bleeding; N84.0 Polyp of corpus uteri; Z91.81 History of falling; Z86.718 Personal history of other venous thrombosis and embolism; Z79.899 Other long term (current) drug therapy; Z79.01 Long term (current) use of anticoagulants; Z79.82 Long term (current) use of aspirin; Z82.49 Family history of ischemic heart disease and other diseases of the circulatory system
CPT/HCPCS: 36415; 71045; 80048; 81000; 84145; 85025; 85027; 86140; 86850; 86900; 86901; 87086; 87635; 93005; 93041; 94760; 96374; 96376; 99285; G0257; G0378; J1335

== ENCOUNTER → 2023-07-18 | Outpatient (REF) ==
[~2023-07-18] MED LIST changes: +ASPI81CH8 PO; +DARB100SYR SC; +DULC10SU2 PR; +FERR325T19 PO; +FLEEENE12 PR; +MIDO5TA PO; +NYST1POW9 TOP; +SENN1TAB41 PO
== END ==
PROVIDERS: ATTEND Physician Assistant
DX: N93.9 Abnormal uterine and vaginal bleeding, unspecified (principal); Z53.8 Procedure and treatment not carried out for other reasons

== ENCOUNTER → 2023-07-20 | Outpatient (REF) ==
[2023-07-20 15:27] LABS: HEMATOCRIT 29.6 % (36.0-47.0); HEMOGLOBIN 9.4 g/dl (12.0-15.5); MEAN CORPUSCULAR HEMOGLOBIN 33.5 pg (27.0-33.0); MEAN CORPUSCULAR HGB CONC 31.8 g/dl (32.0-36.5); MEAN CORPUSCULAR VOLUME 105.3 fl (80.0-96.0); PLATELET COUNT, AUTOMATED 352 10^3/uL (150-450); RED BLOOD COUNT 2.81 10^6/uL (4.00-5.40); WHITE BLOOD COUNT 8.5 10^3/uL (4.0-10.0)
[2023-07-20 15:51] LABS: CALCIUM LEVEL 8.4 MG/DL (8.3-10.6); CREATININE FOR GFR 3.46 MG/DL (0.55-1.30); GLOMERULAR FILTRATION RATE 13.6 (>39); POTASSIUM SERUM 3.3 MMOL/L (3.5-5.1)
== END ==
PROVIDERS: ATTEND Physician Assistant
DX: N93.9 Abnormal uterine and vaginal bleeding, unspecified (principal)

== ENCOUNTER 2023-08-01 12:00 | Inpatient (IN) | payer MEDICARE, OTHER ==
[~2023-08-01] VITALS: Ht 160 cm; Wt 59.7 kg
[~2023-08-01 12:00] MED LIST changes: -CEPH250T PO; -MIDO10TA PO
[2023-08-01 13:09] LABS: HEMATOCRIT 32.7 % (36.0-47.0); HEMOGLOBIN 10.7 g/dl (12.0-15.5); MEAN CORPUSCULAR HEMOGLOBIN 34.1 pg (27.0-33.0); MEAN CORPUSCULAR HGB CONC 32.7 g/dl (32.0-36.5); MEAN CORPUSCULAR VOLUME 104.1 fl (80.0-96.0); PLATELET COUNT, AUTOMATED 253 10^3/uL (150-450); RED BLOOD COUNT 3.14 10^6/uL (4.00-5.40); WHITE BLOOD COUNT 8.6 10^3/uL (4.0-10.0)
[2023-08-01 13:35] LABS: CALCIUM LEVEL 7.4 MG/DL (8.3-10.6); CREATININE FOR GFR 4.1 MG/DL (0.55-1.30); GLOMERULAR FILTRATION RATE 11.2 (>39); POTASSIUM SERUM 3.8 MMOL/L (3.5-5.1)
[2023-08-01 13:59] LABS: C REACTIVE PROTEIN QUANTITATIV 1.4 MG/DL (<1.0)
[2023-08-01 14:01] LABS: BASO % 0.3 % (0.0-1.0); EOS % 0.2 % (0.0-3.0); LYMPH # 1.1 10^3/uL (1.5-5.0); LYMPH % 12.8 % (24.0-44.0); MONO # 0.7 10^3/uL (0.0-0.8); MONO % 8.3 % (2.0-8.0); NEUTROPHILS # 6.7 10^3/uL (1.5-8.5); NEUTROPHILS % 77.7 % (36.0-66.0)
[2023-08-01 14:13] LABS: ERYTHROCYTE SEDIMENTATION RATE 45 mm/hr (0-30)
[2023-08-01] MEDS ORDERED: DEXTROSE 50% 50ML SYRINGE IV PRN (18:00)
[2023-08-01] MEDS ORDERED: MOM 30ML SUSPENSION UDC PO PRN (18:00)
[2023-08-01] MEDS ORDERED: GLUCOSE 4GM CHEW TABLET PO PRN (18:00)
[2023-08-01] MEDS ORDERED: GLUCAGON INJ 1MG VIAL SC PRN (18:00)
[2023-08-01] MEDS ORDERED: ACETAMINOPHEN TAB 650MG DOSE (2X325MG) PO PRN (18:00)
[2023-08-01] MEDS ORDERED: MAALOX 30 ML SUSP *UDC PO PRN (18:00)
[2023-08-01] MEDS ORDERED: PIPERACILLIN/TAZOBACTAM SOD 3.375 GM in D5W MINI-BAG PLUS 50 ML IV SCH (18:45)
[2023-08-01] MEDS ORDERED: VANCOMYCIN HCL 1,000 MG, VIAL MATE ADAPTER 1 EACH in D5W 250 ML IV SCH ×2 (18:45→19:35)
[2023-08-01] MEDS ORDERED: NS 1,000 ML IV SCH (18:45)
[2023-08-01] MEDS ORDERED: NS 500 ML IV ONE (18:45)
[2023-08-01] MEDS ORDERED: CEPH250T PO (20:29)
[2023-08-01 20:30] LABS: INR 1.28; PROTHROMBIN TIME 15.6 SECONDS (12.5-14.5)
[2023-08-01] MEDS ORDERED: FLUD0.1T PO (21:09)
[2023-08-01] MEDS ORDERED: MIDO10TA PO (21:14)
[2023-08-01] MEDS ORDERED: HOME MED LIST COMPLETE! XX SCH (21:15)
[2023-08-01] MEDS ORDERED: SENOKOT S TAB PO PRN (21:25)
[2023-08-01] MEDS ORDERED: FLEET ENEMA PR PRN (21:25)
[2023-08-01] MEDS: PIPERACILLIN/TAZOBACTAM SOD 4.5 GM in D5W MINI-BAG PLUS 50 ML IV SCH (21:37)
[2023-08-01] MEDS ORDERED: PILL CUTTER 1 EACH XX PRN (21:45)
[2023-08-01] MEDS ORDERED: VANCOMYCIN HCL 750 MG, VIAL MATE ADAPTER 1 EACH in D5W 250 ML IV ONE (22:00)
[2023-08-01 22:35] VITALS: BP 134/61; TEMP 97.7; O2SAT 98
[2023-08-01] MEDS: FLUDROCORTISONE ACETATE 0.1 MG TAB PO SCH (22:35)
[2023-08-01] MEDS: INSULIN LISPRO (NovoLOG) PER UNIT SC SCH (22:35)
[2023-08-01] MEDS ORDERED: VANCOMYCIN HCL 500 MG in D5W MINI-BAG PLUS 100 ML IV ONE (23:00)
[2023-08-01] MEDS: DOCUSATE SODIUM 100MG CAPSULE PO SCH (23:40)
[2023-08-01] MEDS: HEPARIN SOD (PORCINE) 5000UNITS/ML 1ML VIAL/SYRINGE SQ SCH (23:40)
[2023-08-02 04:53] VITALS: BP 119/58; TEMP 97.2; O2SAT 99
[2023-08-02] MEDS: HEPARIN SOD (PORCINE) 5000UNITS/ML 1ML VIAL/SYRINGE SQ SCH ×3 (05:24→22:05)
[2023-08-02 05:29] LABS: BASO % 0.1 % (0.0-1.0); EOS % 0.5 % (0.0-3.0); HEMATOCRIT 28.7 % (36.0-47.0); HEMOGLOBIN 9.5 g/dl (12.0-15.5); LYMPH # 1.7 10^3/uL (1.5-5.0); LYMPH % 20.4 % (24.0-44.0); MEAN CORPUSCULAR HEMOGLOBIN 33.7 pg (27.0-33.0); MEAN CORPUSCULAR HGB CONC 33.1 g/dl (32.0-36.5); MEAN CORPUSCULAR VOLUME 101.8 fl (80.0-96.0); MONO # 0.8 10^3/uL (0.0-0.8); NEUTROPHILS # 5.6 10^3/uL (1.5-8.5); NEUTROPHILS % 68.3 % (36.0-66.0); PLATELET COUNT, AUTOMATED 234 10^3/uL (150-450); RED BLOOD COUNT 2.82 10^6/uL (4.00-5.40); WHITE BLOOD COUNT 8.3 10^3/uL (4.0-10.0)
[2023-08-02 05:41] LABS: C REACTIVE PROTEIN QUANTITATIV 1.4 MG/DL (<1.0)
[2023-08-02 05:42] LABS: VANCOMYCIN RANDOM 19.2 UG/ML
[2023-08-02 05:43] LABS: ALBUMIN 1.8 G/DL (3.2-5.2); BILIRUBIN,TOTAL 0.4 MG/DL (0.3-1.2); CALCIUM LEVEL 7.2 MG/DL (8.3-10.6); CREATININE FOR GFR 4.86 MG/DL (0.55-1.30); GLOMERULAR FILTRATION RATE 9.2 (>39); MAGNESIUM LEVEL 2.1 MG/DL (1.8-2.4); POTASSIUM SERUM 3.4 MMOL/L (3.5-5.1); TOTAL PROTEIN 5.2 G/DL (5.7-8.2)
[2023-08-02] MEDS ORDERED: POTASSIUM CHLORIDE 10MEQ SR TABLET PO ONE (07:10)
[2023-08-02 07:21] VITALS: BP 125/60; TEMP 97.3; O2SAT 100
[2023-08-02] MEDS: INSULIN LISPRO (NovoLOG) PER UNIT SC SCH ×4 (07:30→21:00)
[2023-08-02] MEDS: MIDODRINE 5 MG TAB PO SCH ×3 (07:43→16:55)
[2023-08-02] MEDS ORDERED: SODIUM CHLORIDE 0.9% 1000ML IV PRN (08:10)
[2023-08-02] MEDS ORDERED: HEPARIN 1,000UNITS/ML 10ML VIAL (FOR RADIOLOGY & DIALYSIS ONLY) IV PRN (08:10)
[2023-08-02] MEDS ORDERED: HEPARIN 1,000UNITS/ML 10ML VIAL (FOR RADIOLOGY & DIALYSIS ONLY) XX SCH (08:10)
[2023-08-02] MEDS: DOCUSATE SODIUM 100MG CAPSULE PO SCH ×2 (09:00→22:05)
[2023-08-02 12:41] VITALS: BP 125/58; TEMP 97.3; O2SAT 100
[2023-08-02] MEDS: SITagliptin 50 MG TAB (JANUVIA) PO SCH (12:43)
[2023-08-02] MEDS: PIPERACILLIN/TAZOBACTAM SOD 4.5 GM in D5W MINI-BAG PLUS 50 ML IV SCH (12:43)
[2023-08-02] MEDS ORDERED: MUPIROCIN 2% OINT 22 GM TUBE TOP ONE (13:55)
[2023-08-02 16:00] VITALS: BP 120/68; TEMP 97.4; O2SAT 99
[2023-08-02] MEDS ORDERED: VANCOMYCIN HCL 750 MG, VIAL MATE ADAPTER 1 EACH in D5W 250 ML IV SCH (16:00)
[2023-08-02] MEDS: SANTYL OINT 30GM TOP SCH (16:55)
[2023-08-02] MEDS ORDERED: SIMVASTATIN 10 MG TAB PO SCH (18:00)
[2023-08-02 19:55] VITALS: BP 129/61; TEMP 97.8; O2SAT 99
[2023-08-02] MEDS: FLUDROCORTISONE ACETATE 0.1 MG TAB PO SCH (21:00)
[2023-08-02 23:59] VITALS: BP 128/61; TEMP 97.2; O2SAT 99
[2023-08-03 03:33] VITALS: BP 112/55; TEMP 96.6; O2SAT 99
[2023-08-03] MEDS: HEPARIN SOD (PORCINE) 5000UNITS/ML 1ML VIAL/SYRINGE SQ SCH (06:01)
[2023-08-03] MEDS: INSULIN LISPRO (NovoLOG) PER UNIT SC SCH ×2 (07:30→11:50)
[2023-08-03 07:50] LABS: BASO % 0.3 % (0.0-1.0); EOS # 0.1 10^3/uL (0.0-0.5); EOS % 0.6 % (0.0-3.0); HEMOGLOBIN 9.4 g/dl (12.0-15.5); LYMPH # 1.5 10^3/uL (1.5-5.0); LYMPH % 13.7 % (24.0-44.0); MEAN CORPUSCULAR HEMOGLOBIN 33.5 pg (27.0-33.0); MEAN CORPUSCULAR HGB CONC 31.3 g/dl (32.0-36.5); MEAN CORPUSCULAR VOLUME 106.8 fl (80.0-96.0); MONO # 0.9 10^3/uL (0.0-0.8); MONO % 8.2 % (2.0-8.0); NEUTROPHILS # 8.3 10^3/uL (1.5-8.5); NEUTROPHILS % 76.7 % (36.0-66.0); PLATELET COUNT, AUTOMATED 224 10^3/uL (150-450); RED BLOOD COUNT 2.81 10^6/uL (4.00-5.40); WHITE BLOOD COUNT 10.8 10^3/uL (4.0-10.0)
[2023-08-03 07:54] VITALS: BP 114/50; TEMP 96.2; O2SAT 100
[2023-08-03 08:13] LABS: C REACTIVE PROTEIN QUANTITATIV 1.5 MG/DL (<1.0)
[2023-08-03 08:14] LABS: VANCOMYCIN RANDOM 22.7 UG/ML
[2023-08-03 08:21] LABS: ALBUMIN 1.8 G/DL (3.2-5.2); BILIRUBIN,TOTAL 0.4 MG/DL (0.3-1.2); CALCIUM LEVEL 7.9 MG/DL (8.3-10.6); CREATININE FOR GFR 3.24 MG/DL (0.55-1.30); GLOMERULAR FILTRATION RATE 14.7 (>39); TOTAL PROTEIN 5.4 G/DL (5.7-8.2)
[2023-08-03] MEDS ORDERED: DARBEPOETIN 100MCG/0.5ML *DIALYSIS* SYRINGE IV SCH (08:55)
[2023-08-03] MEDS: MIDODRINE 5 MG TAB PO SCH ×2 (09:35→11:50)
[2023-08-03] MEDS: DOCUSATE SODIUM 100MG CAPSULE PO SCH (09:35)
[2023-08-03] MEDS: SANTYL OINT 30GM TOP SCH (09:35)
[2023-08-03] MEDS: SITagliptin 50 MG TAB (JANUVIA) PO SCH (11:50)
[2023-08-03 11:51] VITALS: BP 114/52; TEMP 96; O2SAT 100
[2023-08-03] MEDS ORDERED: GENTAMICIN SULFATE 0.1% OINT 15GM TOP SCH (12:00)
[2023-08-03] MEDS ORDERED: GENT1OI TOP (13:12)
[2023-08-03] MEDS ORDERED: SANT250O8 TOP (13:12)
[2023-08-04] MEDS ORDERED: HEPARIN 1,000UNITS/ML 10ML VIAL (FOR RADIOLOGY & DIALYSIS ONLY) XX SCH (06:00)
[2023-08-04] MEDS ORDERED: HEPARIN 1,000UNITS/ML 10ML VIAL (FOR RADIOLOGY & DIALYSIS ONLY) IV PRN (06:00)
[2023-08-04] MEDS ORDERED: SODIUM CHLORIDE 0.9% 1000ML IV PRN (06:00)
== END 2023-08-03 14:59 | DRG 592 ==
LOC: EDBD 12:00 → M ED 12:00 → M ED INP 18:30 → EEVIPCON 18:30 → M PCU 22:24
PROVIDERS: ADMIT Internal Medicine; ATTEND Internal Medicine
PROC: 5A1D70Z Performance of Urinary Filtration, Intermittent, Less than 6 Hours Per Day (ICD-10-PCS; principal; 2023-08-02)
DX: L98.493 Non-pressure chronic ulcer of skin of other sites with necrosis of muscle (principal); N18.6 End stage renal disease; I50.42 Chronic combined systolic (congestive) and diastolic (congestive) heart failure; I42.0 Dilated cardiomyopathy; E87.20 Acidosis, unspecified; I13.2 Hypertensive heart and chronic kidney disease with heart failure and with stage 5 chronic kidney disease, or end stage renal disease; E11.22 Type 2 diabetes mellitus with diabetic chronic kidney disease; E78.5 Hyperlipidemia, unspecified; D64.9 Anemia, unspecified; B95.62 Methicillin resistant Staphylococcus aureus infection as the cause of diseases classified elsewhere; I25.10 Atherosclerotic heart disease of native coronary artery without angina pectoris; Z66 Do not resuscitate; K57.90 Diverticulosis of intestine, part unspecified, without perforation or abscess without bleeding; E78.00 Pure hypercholesterolemia, unspecified; I25.5 Ischemic cardiomyopathy; M81.0 Age-related osteoporosis without current pathological fracture; E87.6 Hypokalemia; Z98.84 Bariatric surgery status; Z86.718 Personal history of other venous thrombosis and embolism; Z96.642 Presence of left artificial hip joint; Z96.651 Presence of right artificial knee joint; Z99.2 Dependence on renal dialysis; F03.90 Unspecified dementia, unspecified severity, without behavioral disturbance, psychotic disturbance, mood disturbance, and anxiety; I95.1 Orthostatic hypotension; Z79.82 Long term (current) use of aspirin; Z79.899 Other long term (current) drug therapy

== ENCOUNTER → 2023-08-01 | Outpatient (CLI) | payer MEDICARE, OTHER ==
[~2023-08-01] MED LIST changes: +CEPH250T PO; +MIDO10TA PO
== END ==
LOC: M WHC 07:16
PROVIDERS: ATTEND Internal Medicine
DX: N93.9 Abnormal uterine and vaginal bleeding, unspecified (principal)